=== PATIENT | female | born 1945 | race Caucasian/White ===

== ENCOUNTER 2016-11-04 08:40 | Emergency (ER) | payer MEDICARE ==
[2015-12-18 06:37] VITALS: BMI 27.8
[~2016-11-04 08:40] MED LIST: BAYER CHEWABLE81 MG PO; CATAPRES0.1 MG PO; CLEOCIN HCL300 MG PO; CLEOCIN PREMIX600 MG IV; COUMADIN7.5 MG PO; DULCOLAX10 MG/SUPP RC; DYAZIDE 37.5/251 CAP PO; FLAGYL500 MG PO; HYSINGLA ER20 MG PO; LEVAQUIN500 MG PO; LOTENSIN10 MG PO; NORCO 10/325 TA1 TA1 PO; NORVASC10 MG PO; PERCOCET 10/3251 TA1 PO; PROTONIX40 MG PO; TYLENOL 325 MG325 MG PO; VIBRAMYCIN 100100 MG PO; XANAX1 MG PO
[2016-11-04 09:20] LABS: BASOPHILS 0.6 % (0.0-2.0); EOSINOPHILS 6.3 % (0-7); HEMATOCRIT 41.4 % (36.0-48.0); HEMOGLOBIN 13.6 g/dL (12-16); IMMATURE GRANULOCYTES 0.2 % (0-5); LYMPHOCYTES 29.9 % (15-50); MCH 29.2 pg (26.0-34.0); MCHC 32.9 g/dL (31.0-37.0); MCV 88.8 fL (80.0-100.0); MEAN PLATELET VOLUME 9.1 fL (7.4-10.4); MONOCYTES 8.7 % (2-11); NEUTROPHILS 54.3 % (40-80); PLATELET COUNT 290 10x3/uL (130-400); RBC 4.66 10x6/uL (4.00-5.40); RDW 14.4 % (11.5-14.5); WBC 9.1 10x3/uL (4.8-10.8)
[2016-11-04 09:38] LABS: BILIRUBIN - TOTAL 0.4 mg/dL (0.2-1.3); CALCIUM 9.5 mg/dL (8.5-10.1); CARBON DIOXIDE 27.9 mmol/L (21.0-32.0); POTASSIUM - SERUM 3.9 mmol/L (3.5-5.1); PROTEIN - SERUM 8.8 g/dL (6.4-8.2)
[2016-11-04 09:46] LABS: APPEARANCE HAZY (CLEAR); BACTERIA MANY /hpf (NONE SEEN); BILIRUBIN NEGATIVE (NEGATIVE); COLOR YELLOW (YELLOW); GLUCOSE NEGATIVE (NEGATIVE); KETONE NEGATIVE (NEGATIVE); LEUKOCYTE ESTERASE 1+ (NEGATIVE); MUCUS <1+ /lpf (NONE SEEN); NITRITE POSITIVE (NEGATIVE); PROTEIN TRACE mg/dL (NEGATIVE); RED CELLS - URINE OCC /hpf (0-5); SPECIFIC GRAVITY 1.015 (1.005-1.020); UROBILINOGEN NORMAL (NORMAL); WHITE CELLS - URINE 0-5 /hpf (0-5)
== END 2016-11-04 12:32 | disposition home or self-care (01) ==
LOC: D.ER 08:40
PROVIDERS: Emergency Medicine
DX: N39.0 Urinary tract infection, site not specified (principal); K21.9 Gastro-esophageal reflux disease without esophagitis; I10 Essential (primary) hypertension

== ENCOUNTER 2016-12-12 21:50 | Emergency (ER) | payer MEDICARE ==
[2015-12-18 06:37] VITALS: BMI 27.8
== END 2016-12-13 | disposition home or self-care (01) ==
LOC: D.ER 21:50
DX: R06.00 Dyspnea, unspecified (principal); F17.200 Nicotine dependence, unspecified, uncomplicated; R00.1 Bradycardia, unspecified; I45.10 Unspecified right bundle-branch block

== ENCOUNTER 2016-12-25 19:28 | Observation (INO) | payer MEDICARE ==
[~2016-12-25] VITALS: Ht 165.1 cm; Wt 70.3 kg
--- NOTE | ~2016-12-25 | HEMODYNAMI ---
PATIENT:BETY ALVAREZ MEDICAL RECORD: [id number] : 41 LOCATION[id number] ADMISSION DATE: 12/25/16 Generatedon:12/26/201614:06 Patient name: BETY ALVAREZ Patient #: [id number] SSN: : 1945 Date of study: 12/26/2016 Page: Of Hemodynamic Procedure Report Patient Data Patient Demographics Procedure consent was obtained First Name: BETY Gender: Female Last Name: ANTONIO : 1945 Middle Initial: L Age: 71 year(s) Patient #: [id number] Race: Unknown Additional ID: [id number] Contact details [address]: [address] [place] [address] [address] State: [place] City: [place] Zip code: [address] Past Medical History Allergies Allergen Reaction Date Comments Reported Other allergy 12/26/2016 rocephin, sulfa, erythromycin, morphine, vanc Admission Admission Data Admission Date: 12/25/2016 Admission Time: 21:17 Room #: D.2117 Lab Results Lab Result Date: 12/26/2016 Lab Result Time: 10:15 Biochemistry Name Units Result Min Max BUN mg/dl 12 --(-*--)-- 7 18 Creatinine mg/dl 0.9 --(-*--)-- 0.6 1.3 CBC Name Units Result Min Max Hematocrit % 33.4 *-(----)-- 42 54 Hemoglobin g/dl 11 *-(----)-- 13.5 17.5 Procedure Procedure Types Cath Procedure Diagnostic Procedure LHC LHC w/Coronaries Miscellaneous Procedures Moderate Sedation up to 15 minutes Procedure Description Procedure Date Procedure Date: 12/26/2016 Procedure Start Time: 13:56 Procedure End Time: 14:06 Procedure Staff Name Function Evan Bravo MD Performing Physician Vera Mott RT Scrub Reji Guerra RN Nurse Tima Sol RT Monitor Procedure Data Cath Procedure Fluoroscopy Diagnostic fluoroscopy Total fluoroscopy Time: 0.6 time: 0.6 min min Diagnostic fluoroscopy Total fluoroscopy dose: dose: 104.17 mGy 104.17 mGy Contrast Material Contrast Material Type Amount (ml) Isovue 300 54 Entry Location Entry Primary Successful Side Size Upsize Upsize Entry Closure Succes sful Closure Location (Fr) 1 (Fr) 2 (Fr) Remarks Device Remarks Femoral Right 5 Fr Exoseal artery Estimated blood loss: 5 ml Diagnostic catheters Device Type Used For End Catheter Placement Cordis 5Fr Pigtail Procedure Catheter (MP) Cordis 5Fr JL 4.0 Procedure Catheter (MP) Cordis 5Fr 3DRC Catheter Procedure (MP) Procedure Complications No complications Procedure Medications Medication Administration Route Dosage Oxygen NC 2 l/min Heparin Flush Bag added to field 2 bags (1000units/500ml NS) 0.9% NaCl I.V. 100 ml/hr Fentanyl I.V. 50 mcg Versed I.V. 1 mg Hemodynamics Rest HGB: 11 (g/dl) Heart Rate: 51 (bpm) Snapshots Pre Cath Intra NCS Post Cath Vital Signs Time Heart Resp SPO2 NIBP (mmHg) Rhythm Pain Sedation Rate (ipm) (%) Status Level (bpm) 13:43:42 51 16 98 174/60(130) NSR 0 (11) 10(A) , No pain 13:48:17 49 17 96 134/53(104) NSR 0 (11) 10(A) , No pain 13:52:47 49 18 94 129/53(103) NSR 0 (11) 10(A) , No pain 13:57:15 49 17 95 131/58(109) NSR 0 (11) 9(A) , No pain 14:02:51 55 17 92 170/70(122) NSR 0 (11) 9(A) , No pain Medications Time Medication Route Dose Verified Delivered Reason Notes Effec tiveness by by 13:46:26 Oxygen NC 2 Reji Mendoza Per l/min Charlie Guerra RN physician RN 13:46:35 Heparin Flush added 2 Reji Reji used for Bag to bags Charlie Guerra RN procedure (1000units/500ml field RN NS) 13:46:49 0.9% NaCl I.V. 100 Reji Mendoza Per ml/hr Charlie Guerra RN physician RN 13:56:18 Fentanyl I.V. 50 Reji Reji for mcg Charlie Guerra RN sedation RN 13:56:25 Versed I.V. 1 mg Reji Guerra RN sedation manager target Log Time Note 13:20:00 Reji Guerra RN sent for patient. Start room use. 13:27:01 Time tracking: Regular hours 13:27:04 Plan of Care:Hemodynamics will remain stable., Cardiac rhythm will remain stable., Comfort level will be maintained., Respiratory function will remain adequate., Patient/ family verbilizes understanding of procedure., Procedure tolerated without complication., Recovers from procedure without complications.. 13:35:47 Patient received from PCU to CCL 3 Alert and oriented. Tansferred to table in Supine position. 13:35:48 Warm blankets applied, and tad hugger turned on for patient comfort. 13:35:48 Correct patient and procedure confirmed by team. 13:35:49 Signed procedure consent form obtained from patient. 13:35:50 ECG and BP/O2 sat monitors applied to patient. 13:35:51 Full Disclosure recording started 13:42:06 Vital chart was started 13:44:16 Baseline sample Acquired. 13:44:20 Rhythm: sinus rhythm 13:45:48 H&P Date Dictated: 12/25/2016 Within 30 days and on chart.. 13:45:49 Pre-procedure instructions explained to patient. 13:45:50 Pre-op teaching completed and patient verbalized understanding. 13:45:51 Family in patients room. 13:45:52 Patient NPO since Midnight. 13:46:12 Patient allergic to Other allergyrocephin, sulfa, erythromycin, morphine, vanc 13:46:16 Is the patient allergic to Iodine/contrast media? No. 13:46:17 Is patient on blood thinner?Yes 13:46:22 ACC The patient was administered the following blood thiners within the last 24 hours: ACCPradaxa 13:46:23 Patient diabetic? No. 13:46:26 Oxygen 2 l/min NC was administered by Reji Guerra RN; Per physician; 13:46:27 Previous problem with sedation/anesthesia? No ? 13:46:29 Snore? Yes 13:46:35 Heparin Flush Bag (1000units/500ml NS) 2 bags added to field was administered by Reji Guerra RN; used for procedure; 13:46:49 0.9% NaCl 100 ml/hr I.V. was administered by Reji Guerra RN; Per physician; 13:49:08 Sleep apnea? No 13:49:09 Deviated septum? No 13:49:15 Opens mouth fully? Yes 13:49:16 Sticks out tongue? Yes 13:49:17 Airway obstruction? No ? 13:49:21 Dentures? Yes out 13:49:25 Pre procedure: right dorsailis pedis pulse 1+ Palpable, but thready & weak; easily obliterated 13:49:27 Patient pain scale 0/10 ?. 13:49:33 IV patent on arrival in left forearm with 0.9% NaCl at [facility]. 13:50:30 Lab Result : Creatinine 0.9 mg/dl 13:50:30 Lab Result : BUN 12 mg/dl 13:50:30 Lab Result : Hemoglobin 11 g/dl 13:50:30 Lab Result : Hematocrit 33.4 % 13:50:33 Lab results completed and on chart. 13:50:35 Right groin area was prepped with chlora-prep and draped in sterile fashion 13:50:36 Alarms reviewed by R. N. 13:50:37 Sharps counted by scrub and verified by R.N. 13:50:39 Use device set Femoral Dx 13:50:40 Tegaderm 4 x 4 opened to sterile field. 13:50:41 Acist Manifold opened to sterile field. 13:50:43 Acist Hand Control opened to sterile field. 13:50:44 Acist Syringe opened to sterile field. 13:50:44 Bag Decanter opened to sterile field. 13:50:45 Medline Cath Pack opened to sterile field. 13:50:45 Terumo 5Fr Granton Sheath opened to sterile field. 13:50:46 St Jono 260cm J .035 wire opened to sterile field. 13:50:47 Diagnostic Infinity 5Fr Multipack catheter opened to sterile field. 13:54:47 Physician arrived 13:54:48 --------ALL STOP TIME OUT------ 13:54:48 Final Timeout: patient, procedure, and site verified with staff and physician. All members of the team are in agreement. 13:54:50 Right groin site verified by team. 13:54:52 Physical assessment completed. ASA score P 2 - A patient with mild systemic disease as per Evan Bravo MD. 13:54:55 Sedation plan: IV Moderate Sedation Versed, Fentanyl 13:56:13 Procedure started. 13:56:18 Fentanyl 50 mcg I.V. was administered by Reji Guerra RN; for sedation; 13:56:18 Local anesthetic to right femoral artery with Lidocaine 2% by Evan Bravo MD.INITIAL ACCESS ONLY 13:56:25 Versed 1 mg I.V. was administered by Reji Guerra RN; for sedation; 13:56:25 A 5 Fr sheath was inserted into the Right Femoral artery 13:56:42 Zero performed for pressure channel P1 13:57:25 A Cordis 5Fr Pigtail Catheter (MP) was advanced over the wire and used for Procedure. 13:57:42 LV gram done using MART 13:57:46 Injector settings: Ml/sec: 10, Volume: 20, 13:57:53 EF : 60 % 13:57:56 Catheter exchanged over wire. 13:57:59 A Cordis 5Fr JL 4.0 Catheter (MP) was advanced over the wire and used for Procedure. 13:58:26 LCA angiography performed. 13:59:26 Catheter exchanged over wire. 13:59:31 A Cordis 5Fr 3DRC Catheter (MP) was advanced over the wire and used for Procedure. 14:00:05 RCA angiography performed. 14:01:29 Cordis 5Fr Exoseal opened to sterile field. 14:01:36 Sheath removed intact; hemostasis achieved with Exoseal to the Right Femoral artery. 14:01:38 Procedure ended.(Physican Out) 14:02:14 Fluoroscopy time 00.60 minutes. 14:02:24 Fluoroscopy dose: 104.17 mGy 14:02:24 Flurop Dose total: 104.17 14:02:29 Contrast amount:Isovue 300 54ml. 14:02:30 Sharps counted by scrub and verified by R.N. 14:02:31 Insertion/operative site no bleeding no hematoma. 14:02:35 Post-op/insertion site Right Femoral artery dressed using a 4 x 4 and Tegaderm. 14:04:44 Post right femoral artery:stable, soft, clean and dry 14:04:57 Post Procedure Pulses reassessed and unchanged 14:04:59 Post-procedure physical assessment completed. ASA score P 2 - A patient with mild systemic disease as per Evan Bravo MD. 14:05:01 Post procedure rhythm: unchanged. 14:05:04 Estimated blood loss: 5 ml 14:05:06 Post procedure instruction explained to patient.Patient verbalizes understanding. 14:05:06 Patient needs reinforcement of post procedure teaching. 14:05:20 Procedure type changed to Cath procedure, Diagnostic procedure, LHC, LHC w/Coronaries, Miscellaneous Procedures, Moderate Sedation up to 15 minutes 14:06:02 Procedure and supply charges have been captured, reviewed, submitted and are correct. 14:06:04 Procedure Complication : No complications 14:06:05 Vital chart was stopped 14:06:06 See physician's report for complete and final results. 14:06:07 Report given to PCU. 14:06:09 Patient transfered to PCU with Stretcher. 14:06:11 Procedure ended. 14:06:11 Full Disclosure recording stopped 14:06:16 End room use (Document Last) Device Usage Item Name Manufacture Quantity Catalog Hospital Part Current Minimal Lo t# / Number Charge Number Stock Stock Serial# Code Tegaderm 4 3M 1 [id number] [id number] 273773 5 x 4 Acist Acist 1 01553 196407 282150 844234 5 Manifold Medical Systems Inc Acist Hand Acist 1 27204 959413 259157 880922 5 Control Medical Systems Inc Acist Acist 1 51194 627351 875049 221236 20 Syringe Medical Systems Inc Bag Microtek 1 2002S 315520 25431 934659 5 Decanter Medical Inc. Medline Cardinal 1 [id number] 018483 62723 462954 5 Cath Pack Health Terumo 5Fr Terumo 1 [id number] 941745 418349 995467 [address] Jono 1 497456 989890 022601 692876 30 260cm J .035 wire Diagnostic Cardinal 1 [id number] 620439 76034 480513 30 Infinity Health 5Fr Multipack catheter Cordis 5Fr Cardinal 1 484603 5 Pigtail Health Catheter (MP) Cordis 5Fr Cardinal 1 374975 5 JL 4.0 Health Catheter (MP) Cordis 5Fr Cardinal 1 190456 5 3DRC Health Catheter (MP) Cordis 5Fr Cardinal 1 EX500 112850 978277 759728 10 [facility] Signature Audit Calvin Stage Time Signature Unsigned Intra-Procedure 12/26/2016 Tima Sol 2:06:34 PM RT(R) Signatures Monitor : Tima Sol RT Signature : Date : Time : [place] [id number] [place] [address]
--- NOTE | ~2016-12-25 | DS ---
PATIENT:BETY CHAN :41 MEDICAL RECORD: [id number] DISCHARGE SUMMARY ADMISSION DATE: 12/25/16 DISCHARGE DATE: 12/26/16 DATE OF DISCHARGE: 12/26/2016 DIAGNOSES: 1. Chest pain. 2. Angina. 3. Coronary artery disease. 4. Shortness of breath. 5. History of pulmonary embolus. 6. Coumadin anticoagulation, ____ embolus. 7. Hypertension. 8. Chronic obstructive pulmonary disease. HOSPITAL COURSE: Ms. Chan presents with increasing shortness of breath and some chest pain. She underwent CT angio. She did not have a new pulmonary embolus. She was remained on Pradaxa. She underwent cardiac catheterization. She had wide patency of her previously placed stent with no new disease, was discharged home with no change in her medications, follow up with [facility] as previously scheduled. TRANSINT:[id number] Voice Confirmation ID: [id number] DOCUMENT ID: [id number] COLIN MONTES MD CC: [id number] DICTATION DATE: 12/26/161404 DISPLAY TRIMMER: 12/27/16 0206 DIS IN 12/26/16 [facility] [address] [place] [address]
--- NOTE | ~2016-12-25 | OP ---
PATIENT NAME: BETY ALVAREZ MEDICAL RECORD: [id number] :41 LOCATION:D.M2 D.2117 ADMISSION DATE:12/25/16 SURGEON: COLIN MONTES MD DATE OF OPERATION: 12/26/2016 PROCEDURES: 1. Left heart catheterization. 2. Selective coronary angiography. 3. Left ventriculogram. INDICATION: Angina and coronary artery disease. PROCEDURE: After informed consent was obtained and after a detailed explanation of risks, benefits as well as alternative therapies, the patient elected to proceed with angiogram and heart catheterization. The right femoral area was prepped and draped in normal sterile fashion. The right femoral artery was cannulated via modified Seldinger technique with placement of 5-Pashto sheath. All catheters exchanged through this sheath. FINDINGS: Left ventriculogram was performed in standard 30-degree MART view, reveals good cardiac wall motion throughout all segments. Overall ejection fraction is 60%. SELECTIVE CORONARY ANGIOGRAPHY: 1. Left main showed no significant angiographic disease. 2. Left anterior descending has previously placed stent in the proximal vessel is widely patent with no significant restenosis. No disease elsewise throughout the LAD or its branches. 3. Left circumflex shows moderate irregularities, but no flow-limiting stenosis. 4. Right coronary has moderate irregularities, but no flow-limiting stenosis. OVERALL IMPRESSION: Wide patency of the previously placed stent with no disease elsewise and normal left ventricular function. Chest pain is noncardiac in etiology. TRANSINT:[id number] Voice Confirmation ID: [id number] DOCUMENT ID: [id number] COLIN MONTES MD CC: [id number] DICTATION DATE: 12/26/16 1406 HYPO SPLASHER: 12/26/162133 DIS IN 12/26/16 [facility] [address] [place] [id number]
[2016-12-25 21:27] LABS: BASOPHILS 0.3 % (0.0-2.0); EOSINOPHILS 8.3 % (0-7); HEMATOCRIT 33.4 % (36.0-48.0); IMMATURE GRANULOCYTES 0.3 % (0-5); LYMPHOCYTES 29.4 % (15-50); MCH 29.3 pg (26.0-34.0); MCHC 32.9 g/dL (31.0-37.0); MCV 89.1 fL (80.0-100.0); MONOCYTES 8.1 % (2-11); NEUTROPHILS 53.6 % (40-80); RBC 3.75 10x6/uL (4.00-5.40); RDW 15.3 % (11.5-14.5); WBC 7.4 10x3/uL (4.8-10.8)
[2016-12-25 21:36] LABS: PLATELET COUNT 194 10x3/uL (130-400)
[2016-12-25 21:45] LABS: ALBUMIN 3.4 g/dL (3.4-5.0); ALKALINE PHOSPHATASE 62 U/L (46-116); ALT (SGPT) 13 U/L (10-68); BILIRUBIN - TOTAL 0.18 mg/dL (0.2-1.3); CALC OSMOLALITY 280 mosm/kg (275-300); CALCIUM 9.3 mg/dL (8.5-10.1); CARBON DIOXIDE 25.4 mmol/L (21.0-32.0); CHLORIDE - SERUM 103 mmol/L (98-107); CREATININE - SERUM 0.9 mg/dL (0.6-1.3); GLUCOSE 109 mg/dL (74-106); POTASSIUM - SERUM 4.2 mmol/L (3.5-5.1); PROTEIN - SERUM 7.1 g/dL (6.4-8.2); SODIUM 139 mmol/L (136-145); UREA NITROGEN 17 mg/dL (7-18); eGFR NON AFRICAN AMERICAN 65 mL/min (90-120)
[2016-12-25 21:54] LABS: CREATINE KINASE 37 UL (21-215); PRO BNP 563 pg/mL (0-125)
[2016-12-25 21:55] LABS: TROPONIN-I < 0.017 ng/mL (0.000-0.060)
[2016-12-25] MEDS ORDERED: HYDROCODONE-APA1 TAB PO (23:00)
--- NOTE | 2016-12-25 23:00 | NUR ---
RECIEVED TO 2116 FROM ER VIA WC. PT A&O. VITALS STABLE. O2 AT 2 LITER VIA NC, RESPERTIONS EVEN AND UNLABORED. IV TO LEFT FOREARM SL, SITE CLEAN AND DRY. PLACED ON TELEMETRY, 83 SR PER MT. 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 PT DENIES NEEDS AT THIS TIME, BED LOW, CL IN REACH.
[2016-12-25] MEDS ORDERED: CATAPRES0.1 MG PO (23:02)
[2016-12-25] MEDS ORDERED: PROAIR HFA8.5 GM INH (23:04)
[2016-12-25] MEDS ORDERED: PRADAXA150 MG PO (23:05)
[2016-12-25 23:47] VITALS: BP 166/54; BMI 25.9
--- NOTE | 2016-12-25 23:53 | NUR ---
NORCO 1 TAB GIVEN FOR C/O PAIN TO LEGS, RATES PAIN AT A 7 ON PAIN SCALE. NO OTHER NEEDS VOICED AT THIS TIME.
[2016-12-26] VITALS: BP 166/54
--- NOTE | 2016-12-26 04:18 | NUR ---
IC DESIGN ENGINEER AT BEDSIDE TO OBTAIN VITALS, CALL LIGHT IN REACH. WILL CONTINUE WITH PLAN OF CARE.
--- NOTE | 2016-12-26 07:30 | NUR ---
RECEIVED PT IN BED AAOX4 RESP UNLABORED NAD NOTED PT DENIES ANY NEEDS OR DISCOMFORT NAD NOTED
[2016-12-26 08:19] VITALS: BP 161/57
[2016-12-26 10:37] VITALS: Ht 165.1 cm; Wt 70.3 kg
[2016-12-26 11:10] LABS: INR 1.06 (0.85-1.17); PROTIME 13.7 SECONDS (11.6-15.0)
[2016-12-26 11:11] LABS: ANION GAP 12.2 mmol/L (8-16); CALCIUM 9.1 mg/dL (8.5-10.1); CARBON DIOXIDE 24.9 mmol/L (21.0-32.0); CREATININE - SERUM 0.9 mg/dL (0.6-1.3); POTASSIUM - SERUM 4.1 mmol/L (3.5-5.1)
[2016-12-26 12:44] VITALS: BP 145/52
[2016-12-26 13:02] LABS: BASOPHILS 0.3 % (0.0-2.0); EOSINOPHILS 7.5 % (0-7); HEMATOCRIT 34.2 % (36.0-48.0); HEMOGLOBIN 11.3 g/dL (12-16); LYMPHOCYTES 21.8 % (15-50); MCH 29.3 pg (26.0-34.0); MCV 88.6 fL (80.0-100.0); MONOCYTES 6.5 % (2-11); NEUTROPHILS 63.9 % (40-80); PLATELET COUNT 209 10x3/uL (130-400); RBC 3.86 10x6/uL (4.00-5.40); RDW 15.3 % (11.5-14.5); WBC 6.2 10x3/uL (4.8-10.8)
--- NOTE | 2016-12-26 15:17 | NUR ---
PT TO SEED SPECIALIST VIA BED IN STABLE CONDITION
--- NOTE | 2016-12-26 15:55 | NUR ---
RECEIVED PT BACK TO ROOM IN STABLE CONDITION VIA BED VSS RT GREGORY WHITT C/D/I
[2016-12-26 16:00] VITALS: BP 131/64
--- NOTE | 2016-12-26 17:59 | NUR ---
REVIEWED DISCHARGE INSTRUCTIONS WITH PT STATES UNDERSTANDING COPY GIVEN SALINE LOCK DCD LFA WITH 22 GA IV CATHETER TIP INTACT NO REDNESS OR EDEMA NOTED PT DISCHARGED HOME VIA W/C IN STABLE CONDITION WITH ALL PERSONAL BELONGINGS
== END 2016-12-26 17:59 | disposition home or self-care (01) ==
LOC: D.ER 19:28 → OBSVTIME 21:17 → D.M2 21:17
PROVIDERS: Family Medicine; ADMIT Internal Medicine Interventional Cardiology
DX: R07.89 Other chest pain (principal); I25.119 Atherosclerotic heart disease of native coronary artery with unspecified angina pectoris; Z95.5 Presence of coronary angioplasty implant and graft; Z86.73 Personal history of transient ischemic attack (TIA), and cerebral infarction without residual deficits; F41.9 Anxiety disorder, unspecified; I10 Essential (primary) hypertension; Z86.711 Personal history of pulmonary embolism; Z79.01 Long term (current) use of anticoagulants; J44.9 Chronic obstructive pulmonary disease, unspecified; Z72.0 Tobacco use

== ENCOUNTER 2017-01-17 12:33 | Inpatient (IN) | payer MEDICARE ==
[~2017-01-17] VITALS: Ht 165.1 cm; Wt 68.6 kg
[~2017-01-17 12:33] MED LIST changes: +HYDROCODONE-APA1 TAB PO; +PRADAXA150 MG PO; +PROAIR HFA8.5 GM INH
[2017-01-17 13:45] LABS: BASOPHILS 0.1 % (0-2); EOSINOPHILS 2.9 % (0-7); HEMATOCRIT 35.8 % (36.0-48.0); HEMOGLOBIN 11.5 g/dL (12-16); IMMATURE GRANULOCYTES 0.2 % (0-5); LYMPHOCYTES 12.1 % (15-50); MCH 29.1 pg (26.0-34.0); MCHC 32.1 g/dL (31.0-37.0); MCV 90.6 fL (80.0-100.0); MEAN PLATELET VOLUME 9.7 fL (7.4-10.4); MONOCYTES 7.7 % (2-11); PLATELET COUNT 217 10x3/uL (130-400); RBC 3.95 10x6/uL (4.00-5.40); RDW 15.4 % (11.5-14.5); WBC 9.9 10x3/uL (4.8-10.8)
[2017-01-17 14:09] LABS: ALBUMIN 3.6 g/dL (3.4-5.0); ANION GAP 11.3 mmol/L (8-16); BILIRUBIN - TOTAL 0.57 mg/dL (0.2-1.3); CALCIUM 9.4 mg/dL (8.5-10.1); CARBON DIOXIDE 29.1 mmol/L (21.0-32.0); CREATININE - SERUM 1.1 mg/dL (0.6-1.3); POTASSIUM - SERUM 4.4 mmol/L (3.5-5.1); PROTEIN - SERUM 7.4 g/dL (6.4-8.2)
[2017-01-17 14:49] LABS: APPEARANCE CLOUDY (CLEAR); BILIRUBIN NEGATIVE (NEGATIVE); COLOR YELLOW (YELLOW); GLUCOSE NEGATIVE (NEGATIVE); KETONE NEGATIVE (NEGATIVE); LEUKOCYTE ESTERASE TRACE (NEGATIVE); NITRITE POSITIVE (NEGATIVE); PROTEIN TRACE mg/dL (NEGATIVE); SPECIFIC GRAVITY 1.015 (1.005-1.020); UROBILINOGEN NORMAL (NORMAL)
[2017-01-17 14:53] LABS: BACTERIA MANY /hpf (NONE SEEN); EPITHELIAL CELLS 0-5 /hpf (0-5); RED CELLS - URINE 0-5 /hpf (0-5)
[2017-01-17] MEDS ORDERED: MACROBID100 MG PO (17:06)
--- NOTE | 2017-01-17 19:01 | NUR ---
RECIEVED TO FLOOR, ORIENTED TO ROOM, DENIES NEEDS, WILL CONTINUE TO MONITOR
[2017-01-17 20:00] VITALS: BP 120/47
--- NOTE | 2017-01-18 03:44 | NUR ---
PT. IN BED WITH HOB UP FOR COMFORT WITH EYES CLOSED AND RESP. DEEP AND EVEN. IV INFUSING VIA PUMP WITHOUT ANY ALARMS. CALL LIGHT REMAINS WITHIN REACH.
[2017-01-18 04:00] VITALS: BP 137/50
[2017-01-18 07:00] VITALS: BP 121/50
--- NOTE | 2017-01-18 07:00 | NUR ---
REPORT RECEIVED FROM TRANSPORT NURSE NURSE. CALL LIGHT IN REACH.
--- NOTE | 2017-01-18 09:05 | NUR ---
SPOKE WITH PATIENT ABOUT ORDER FOR SURGERY IN AM. STATES SHE WOULD LIKE TO SPEAK WITH THE DOCTOR. INFORMED PATIENT THAT HE WILL BE HERE LATER TODAY TO SPEAK WITH HER. ALSO INSTRUCTED HER ABOUT THE 24 HOUR URINE AND TO NOTIFY ME THE NEXT TIME SHE GOES TO THE . [place] HAT PLACED UNDER TOILET SEAT. WILL OBTAIN JUG FOR URINE FROM LAB AND PLACE IT ON ICE. PASSWORD AND EMERGENCY CONTACT INFO OBTAINED AND PLACED IN COMPUTER.
--- NOTE | 2017-01-18 09:45 | NUR ---
ASSESSMENT COMPLETED. NORCO PO WITH AM MEDS ADMINISTERED EXCEPT FOR BP MED D/T LOW BP. OFFERED SCDs AFTER EXPLAINING IMPORTANCE OF THEM BUT PATIENT REFUSED THEM. CALL LIGHT IN REACH. WILL CONTINUE WITH PLAN OF CARE.
--- NOTE | 2017-01-18 10:42 | NUR ---
PATIENT IS RESTING QUIETLY WITH EYES CLOSED. NO SIGNS OF DISTRESS NOTED. BED IN LOWEST POSITION, CALL LIGHT IN REACH. BED RAILS UP X'S 2. DOOR OPEN.
--- NOTE | 2017-01-18 12:03 | NUR ---
LYING IN BED WITH EYES CLOSED. RESP EVEN AND UNLABORED. CALL LIGHT IN REACH.
[2017-01-18 12:32] VITALS: BP 104/44
--- NOTE | 2017-01-18 14:25 | NUR ---
MERREM IVPB. NORCO PO PER C/O PAIN OF 7 TO BACK AND RIGHT SIDE. FAMILY IN ROOM. PASSWORD AND EMERGENCY CONTACT INFO OBTAINED AND PLACED IN COMPUTER.
[2017-01-18 14:57] VITALS: BP 124/44
--- NOTE | 2017-01-18 16:37 | NUR ---
LEVAQUIN 750 MG IVPB. CALL LIGHT IN REACH.
--- NOTE | 2017-01-18 17:13 | NUR ---
TYLENOL 650 MG PO PER TEMP OF 101.1.
--- NOTE | 2017-01-18 18:16 | NUR ---
C/O PAIN OF 5 TOP RIGHT SIDE, BACK, AND HEAD. NORCO PO. NO CHANGES IN INITIAL ASSESSMENT. STILL REFUSES SCDs. CALL LIGHT IN REACH. DISCUSSED URINE RESULTS WITH PATIENT BECAUSE SHE WAS CURIOUS. WILL CONTINUE WITH PLAN OF CARE.
[2017-01-18 20:00] VITALS: BP 83/49
--- NOTE | 2017-01-18 22:16 | NUR ---
PATIENT RESTING WITH EYES CLOSED AND NO VISBLE SIGNS OF DISTRESS. BED IN LOWEST POSITION AND CALL LIGHT WITHIN REACH.
[2017-01-19] VITALS: BP 92/50
--- NOTE | 2017-01-19 00:48 | NUR ---
C/O PAIN WAS MEDICATED WITH NORCO PER ORDERS. C/L IN REACH AT BEDSIDE.
--- NOTE | 2017-01-19 03:18 | NUR ---
RESTING WELL AT THIS TIME WITH NO DISTRESS NOTED OR VOICED. C/L IN REACH AT BEDSIDE.
[2017-01-19 04:00] VITALS: BP 128/62
--- NOTE | 2017-01-19 05:59 | NUR ---
PT C/O PAIN TO RIGHT SIDE AND BACK AT THIS TIME WAS MEDICATED WITH NORCO PER ORDERS. C/L N REACH AT BEDSIDE.
--- NOTE | 2017-01-19 07:00 | NUR ---
PATIENT RECEIVED IN MID GARCIA POSITION RESTING WITH EYES CLOSED. RESPIRATIONS EVEN AND UNLABORED. SIDE RAILS UP X2. BED IN LOW POSITION. CALL LIGHT IN REACH.
[2017-01-19 07:38] VITALS: BP 143/53
--- NOTE | 2017-01-19 08:40 | NUR ---
PATIENT ALERT IN BED EATING BREAKFAST. TOLERATING WELL. SCHEDULED MEDICATION ADMINISTERED. DENIES NEEDS. SIDE RAILS UP X2. BED IN LOW POSITION. CALL LIGHT IN REACH.
--- NOTE | 2017-01-19 10:14 | NUR ---
PATIENT UP AMBULATING IN HALLWAY. NO SIGNS OF DISTRESS NOTED.
--- NOTE | 2017-01-19 10:55 | NUR ---
PATIENT BACK TO ROOM WITH DAUGHTER. PATIENT PLACED IN CONTACT ISOLATION FOR ESBL IN URINE. APPROPRIATE SIGNS PLACED AT DOOR. TEACHING PROVIDED TO PATIENT AND DAUGHTER. STATES UNDERSTANDING.
--- NOTE | 2017-01-19 11:00 | NUR ---
PATIENT REPORTS SHE WENT FOR A WALK UPON RETURNING TO HER ROOM " SOMEONE WENT THROUGH HER PURSE AND TOOK 15-20 HYDROCODONES BUT DIDN'T TOUCH HUNDREDS OF DOLLARS OR LORAZEPAM". PATIENT REFUSES TO LOCK BELONGINGS IN SAFE OR SEND HOME WITH FAMILY MEMBER. [facility] PAINTER BOTTOM AND SECURITY NOTIFIED.
--- NOTE | 2017-01-19 11:05 | NUR ---
PATIENT REPORTS SHE HAD "15-20 HYDROCODONE IN A SMALL BLACK BAG IN HER PURSE THAT IS NOW MISSING." LIVIA WINSTON AT BEDSIDE TO DISCUSS MATTER WITH PATIENT. PATIENT ALSO STATES "SHE HAS HUNDREDS OF DOLLARS AND LORAZEPAM IN PURSE." LIVIA WINSTON ASKED MULTIPLE TIMES AND ENCOURAGED PATIENT TO EITHER SEND BELONGINGS HOME WITH DAUGHTER WHO IS AT BEDSIDE OR TO LOCKED IN SAFE AT HOSPITAL TO WHICH THE PATIENT REFUSES BOTH.
--- NOTE | 2017-01-19 11:43 | NUR ---
LALI WITH SECURITY IN ROOM TALKING WITH PATIENT.
--- NOTE | 2017-01-19 13:00 | NUR ---
SITTING UP IN BED EATING LUNCH. TOLERATING WELL. DENIES NEEDS. SIDE RAILS UP X2. BED IN LOW POSITION. CALL LIGHT IN REACH.
[2017-01-19 13:27] VITALS: BMI 25.1
[2017-01-19 13:35] VITALS: BP 117/44
--- NOTE | 2017-01-19 14:55 | NUR ---
[place] [employer] HERE TO SPEAK TO PATIENT REGARDING MISSING HYDROCODONE. PATIENT AGREES TO SENT LORAZEPAM TO [facility] FOR LOCKUP. COUNT VERIFIED BY LIVIA WINSTON, THIS NURSE AND [employer] QUALITY CONTROL AUDITOR. QUALITY CONTROL AUDITOR STATES PATIENT TOLD HIM A FAMILY MEMBER WOULD COME TO TAKE HER OTHER BELONGINGS HOME.
--- NOTE | 2017-01-19 15:10 | NUR ---
HOME LORAZEPAM SENT TO PHARMACY FOR LOCKUP. RECEIVED BY EMANI, FLESHING MACHINE OPERATOR
--- NOTE | 2017-01-19 16:45 | NUR ---
TYLENOL PER PRN ORDER FOR FEVER OF 101. DENIES NEEDS. SIDE RAILS UP X2. BED IN LOW POSITION. CALL LIGHT IN REACH.
[2017-01-19 16:56] VITALS: BP 96/67
[2017-01-19 20:00] VITALS: BP 96/39
--- NOTE | 2017-01-19 20:00 | NUR ---
ASSESSMENT PER FLOWSHEET IV PATENT LT ARM OF NS AT 100CC'S/HR. SITE CLEAR. PT IN CONTACT ISOLATION. UP AD LORIN TO BR VOIDS WELL.
--- NOTE | 2017-01-19 20:32 | NUR ---
C/O PAIN RT FLANK AREA AND BACK. RATES PAIN LEVEL #5-6. NORCO 10 TAB ONE PO GIVEN FOR PAIN RELIEF.
--- NOTE | 2017-01-19 21:30 | NUR ---
DR JOHNSON HERE TO SEE PATIENT ORDERS REC'D.
--- NOTE | 2017-01-19 21:41 | NUR ---
PT REQUESTING NERVE PILL. XANAX 0.25MG TAB ONE PO GIVEN FOR NERVES.
--- NOTE | 2017-01-20 00:36 | NUR ---
C/O PAIN RT FLANK AREA AND BACK. RATES PAIN LEVEL #6. NORCO 10 TAB ONE PO GIVEN FOR PAIN CONTROL.
--- NOTE | 2017-01-20 03:00 | NUR ---
RESTING QUIETLY AT THIS TIME DENIES NEEDS
[2017-01-20 04:00] VITALS: BP 98/49
[2017-01-20 06:32] LABS: ALBUMIN 2.5 g/dL (3.4-5.0); ANION GAP 10.3 mmol/L (8-16); BILIRUBIN - TOTAL 0.31 mg/dL (0.2-1.3); CALCIUM 8.1 mg/dL (8.5-10.1); CARBON DIOXIDE 26.5 mmol/L (21.0-32.0); POTASSIUM - SERUM 3.8 mmol/L (3.5-5.1); PROTEIN - SERUM 6.2 g/dL (6.4-8.2)
[2017-01-20 06:46] LABS: BASOPHILS 0.1 % (0-2); EOSINOPHILS 4.9 % (0-7); HEMATOCRIT 33.1 % (36.0-48.0); HEMOGLOBIN 10.6 g/dL (12-16); IMMATURE GRANULOCYTES 0.3 % (0-5); LYMPHOCYTES 16.6 % (15-50); MCH 29.2 pg (26.0-34.0); MCV 91.2 fL (80.0-100.0); MEAN PLATELET VOLUME 10.2 fL (7.4-10.4); MONOCYTES 8.2 % (2-11); NEUTROPHILS 69.9 % (40-80); RBC 3.63 10x6/uL (4.00-5.40); RDW 15.6 % (11.5-14.5); WBC 7.3 10x3/uL (4.8-10.8)
[2017-01-20 06:48] LABS: PLATELET COUNT 169 10x3/uL (130-400)
--- NOTE | 2017-01-20 07:25 | NUR ---
PATIENT RECEIVED ALERT IN HIGH GARCIA POSITION. RESPIRATIONS EVEN AND UNLABORED. DENIES NEEDS. SIDE RAILS UP X2. BED IN LOW POSITION. CALL LIGHT IN REACH.
[2017-01-20 07:59] VITALS: BP 125/49
--- NOTE | 2017-01-20 08:02 | NUR ---
PATIENT ALERT IN HIGH GARCIA POSITION WATCHING TV. RESPIRATIONS EVEN AND UNLABORED. SCHEDULED MEDICATION ADMINISTERED. NO NEEDS VOICED. SIDE RAILS UP X2. BED IN LOW POSITION. CALL LIGHT IN REACH.
[2017-01-20 11:38] VITALS: BP 74/45
--- NOTE | 2017-01-20 12:10 | NUR ---
PATIENT ALERT IN HIGH GARCIA POSITION WATCHING TV. RESPIRATIONS EVEN AND UNLABORED. DENIES NEEDS. SIDE RAILS UP X2. BED IN LOW POSITION. CALL LIGHT IN REACH.
[2017-01-20 13:45] VITALS: BP 136/83
--- NOTE | 2017-01-20 15:26 | NUR ---
WOUND CARE CONSULT: PT HAS A CHRONIC WOUND ON RIGHT INNER UPPER ANKLE. MEASURES 1.5CM X 1CM. IT IS NEARLY HEALED. PT HAS BEEN GOING TO WOUND CLINIC AND HAS HAD HOME HEALTH CHANGING DRESSINGS AT HOME. CLEANSED WITH SAFCLEANS AND APPLIED PROMOGRAN/JANUSZ MOISTENED WITH SALINE. COVERED WITH 4X4S, CAST PADDING AND SECURED WITH KERLIX. RECOMMEND CHANGING EVERY 3 DAYS. wOUND CARE WILL CONTINUE TO MONITOR.
--- NOTE | 2017-01-20 15:38 | NUR ---
ALERT IN BED WITH FAMILY PRESENT. NO SIGNS OF DISTRESS NOTED. SCHEDULED MEDICATION ADMINISTERED. DENIES NEEDS. BED IN LOW POSITION. SIDE RAILS UP X2. CALL LIGHT IN REACH. FAMILY PRESENT.
[2017-01-20 15:48] VITALS: BP 106/41
--- NOTE | 2017-01-20 17:28 | NUR ---
Patient Name: BETY ALVAREZ Admission Status: ER Accout number: [id number] Admission Date: 01-17-2017 : 1945 Admission Diagnosis: Attending: VIJAY Current LOS: 3 Anticipated DC Date: 01-22-2017 Planned Disposition: Home with Home Health Primary Insurance: MEDICARE A & B Discharge Planning Comments: CM MET WITH PATIENT REGARDING D/C NEEDS AND PLANS. PATIENT STATED SHE LIVES WITH HER DAUGHTER (JANENE) AND SHE WILL DRIVE HER HOME AT DISCHARGE. PATIENT STATED THERE ARE 3 STEPS W/RAILS TO ENTER HOME AND NO STAIRS INSIDE. PATIENT IS INDEPENDENT WITH HER CARE AND HAS NO DME AT HOME. PATIENTS PCP IS DR. JOHNSON AND PHARMACY IS [facility]. PATIENT IS CURRENT WITH [facility]. PCP DR. JOHNSON [facility] - [phone] JANENE (DAUGHTER) [phone] Novelty Printing Machine Operator: Oriana Fang Is the patient Alert and Oriented? Yes 0 * How many steps to enter\exit or inside your home? 3 W/RAILS 0 * PCP DR. JOHNSON 0 * Pharmacy [facility] 0 * Preadmission Environment Home with Family 0 * ADLs Independent 0 * Equipment None 0 * List name and contact numbers for known caregivers / representatives who currently or will assist patient after discharge: DAUGHTER (JANENE) [phone] 0 * Community resources currently utilized None 0 * Additional services required to return to the preadmission environment? Yes 0 * Can the patient safely return to the preadmission environment? Yes 0 * Has this patient been hospitalized within the prior 30 days at any hospital? No 0 Grand Total: 0
[2017-01-20 20:00] VITALS: BP 112/38
--- NOTE | 2017-01-20 20:00 | NUR ---
ASSESSMENT PER FLOWSHEET. IV PATENT LEFT FOREARM OF NS AT 100CC'S/HR SITE CLEAR. PT IN CONTACT ISOLATION. SR UP X2 CALL LIGHT WITHIN REACH.
--- NOTE | 2017-01-20 21:23 | NUR ---
C/O PAIN BACK RATES PAIN LEVEL #5-6. NORCO 10 TAB ONE PO GIVEN FOR PAIN CONTROL.
--- NOTE | 2017-01-20 22:11 | NUR ---
C/O NAUSEA AND HAVING EMESIS IN THE TRASHCAN. ZOFRAN 4MG IVP GIVEN FOR RELIEF.
--- NOTE | 2017-01-21 00:09 | NUR ---
PT REQUESTING NERVE MED. XANAX 0.25MG TAB ONE PO GIVEN FOR ANXIETY.
--- NOTE | 2017-01-21 01:48 | NUR ---
C/O PAIN IN RT FLANK AREA RATES PAIN LEVEL #5. NORCO TAB ONE PO GIVEN FOR PAIN CONTROL.
--- NOTE | 2017-01-21 02:00 | NUR ---
UP AD LORIN TO BR VOIDS WELL.
--- NOTE | 2017-01-21 04:30 | NUR ---
EYES CLOSED RESPIRATIONS WITH EASE AND UNLABORED.
--- NOTE | 2017-01-21 05:15 | NUR ---
NO CHANGES IN ASSESSMENT.
--- NOTE | 2017-01-21 07:20 | NUR ---
REPORT RECEIVED FROM GRAVEL MACHINE OPERATOR NURSE. CALL LIGHT IN REACH.
--- NOTE | 2017-01-21 08:00 | NUR ---
AM MEDS ADMINISTERED. ATTEMPTED TO RESITE IV TO RIGHT FOREARM WITH 22 GA BUT VEIN BLEW WHEN TRYING TO FLUSH. WILL ASK IV NURSE TO LOOK. STILL REFUSES SCDs. CALL LIGHT IN REACH. WILL CONTINUE WITH PLAN OF CARE.
[2017-01-21 08:02] VITALS: BP 110/48
--- NOTE | 2017-01-21 08:29 | NUR ---
IV ACCESS-22 GAUGE INSERTED IN RIGHT HAND FOR ACCESS. ORLIN RAYMUNDO RN
--- NOTE | 2017-01-21 10:30 | NUR ---
AMBULATED IN HALLWAY WITH DAUGHTER.
--- NOTE | 2017-01-21 12:23 | NUR ---
DEONNA DALEY. FLORENTINO PO. CALL LIGHT IN REACH.
[2017-01-21 12:28] VITALS: BP 147/55
--- NOTE | 2017-01-21 14:29 | NUR ---
RESTING WITH EYES CLOSED. RESP EVEN AND UNLABORED. CALL LIGHT IN REACH.
[2017-01-21 15:59] VITALS: BP 134/58
--- NOTE | 2017-01-21 16:15 | NUR ---
C/O PAIN OF 10 SO NORCO PO. ZOSYN IVPB. MILK OF MAG PO PER C/O CONSTIPATION.
--- NOTE | 2017-01-21 18:27 | NUR ---
NO CHANGES IN INITIAL ASSESSMENT. STILL REFUSES SCDs. CALL LIGHT IN REACH. WILL CONTINUE WITH PLAN OF CARE.
[2017-01-21 20:00] VITALS: BP 129/55
--- NOTE | 2017-01-21 20:00 | NUR ---
ASSESSMENT PER FLOWSHEET. IV PATENT RT HAND OF NS AT 100CC'S/HR SITE CLEAR. UP AD LORIN IN ROOM WENT TO BR AND EMPTIED COLOSTOMY BAG.DENIES NEEDS.
--- NOTE | 2017-01-21 22:48 | NUR ---
C/O PAIN RT FLANK AREA NORCO 10 TAB ONE PO GIVEN FOR PAIN CONTROL.
[2017-01-22] VITALS: BP 118/53
--- NOTE | 2017-01-22 | NUR ---
EYES CLOSED RESPIRATIONS WITH EASE AND UNLABORED.
--- NOTE | 2017-01-22 02:50 | NUR ---
RESTING QUIETLY AT THIS TIME DENIES NEEDS. SR UP X2 CALL LIGHT WITHINREACH.
[2017-01-22 04:00] VITALS: BP 132/62
--- NOTE | 2017-01-22 07:15 | NUR ---
REPORT RECEIVED FROM SERVICE ELECTRICIAN NURSE. CALL LIGHT IN REACH.
[2017-01-22 08:44] VITALS: BP 143/53
--- NOTE | 2017-01-22 08:52 | NUR ---
ASSESSMENT COMPLETED. EATING BREAKFAST AT THIS TIME. STILL REFUSES SCDs. CONTACT ISOLATION. REQUESTING PAIN PILL WITH AM MEDS. CALL LIGHT IN REACH. WILL CONTINUE WITH PLAN OF CARE.
--- NOTE | 2017-01-22 09:55 | NUR ---
NORCO PO WITH AM MEDS ADMINISTERED. HELD BP MEDS AGAIN.
--- NOTE | 2017-01-22 11:13 | NUR ---
IV ZOSYN ADMINISTERED PER ORDER. STATES PAIN HAS DECREASED TO A 3.
[2017-01-22 12:24] VITALS: BP 132/57
--- NOTE | 2017-01-22 12:43 | NUR ---
CONTACT ISOLATION. COLOSTOMY BAG INTACT. PATIENT STATES THAT SHE DOES SELF CARE. NS INFUSING TO RIGHT HAND IV WITH NO SWELLING OR REDNESS TO SITE. DENIES NEEDS OR PAIN AT THIS TIME. CALL LIGHT IN REACH.
--- NOTE | 2017-01-22 13:58 | NUR ---
NUTRITION MONITORING & EVAL CHART REVIEWED, PT VISIT. REMAINS IN ISOLATION. REPORTS CONTINUED GOOD PO INTAKE REG DIET. WILL CONTINUE TO PROVIDE DIET, HONOR FOOD PREFERENCES. RD FOLLOWING
--- NOTE | 2017-01-22 14:21 | NUR ---
LIVIA LORENZO, ADMINISTERED A NORCO PO FOR PAIN OF 7.
--- NOTE | 2017-01-22 16:16 | NUR ---
DEONNA DALEY. VISITOR IN ROOM. CALL LIGHT IN REACH.
[2017-01-22 16:31] VITALS: BP 136/55
--- NOTE | 2017-01-22 17:55 | NUR ---
NO CHANGES IN INITIAL ASSESSMENT. CALL LIGHT IN REACH. STILL REFUSES SCDs. WILL CONTINUE WITH PLAN OF CARE.
[2017-01-22 17:56] LABS: APTT 24.4 SECONDS (22.8-39.4)
[2017-01-22 18:00] LABS: INR 1.03 (0.85-1.17); PROTIME 13.3 SECONDS (11.6-15.0)
--- NOTE | 2017-01-22 18:07 | NUR ---
NO CHANGES IN INITIAL ASSESSMENT. CALL LIGHT IN REACH. WILL CONTINUE WITH PLAN OF CARE.
[2017-01-22 20:00] VITALS: BP 141/55
[2017-01-23] VITALS (7 sets, daily range): BP systolic 127–194; BP diastolic 53–121; Ht 165.1 cm; Wt 68.6 kg
--- NOTE | 2017-01-23 07:15 | NUR ---
REPORT RECEIVED FROM SPOOL WINDER NURSE. CALL LIGHT IN REACH.
--- NOTE | 2017-01-23 08:10 | NUR ---
REPORT RECEIVED FROM COMMODITY SPECIALIST NURSE. CALL LIGHT IN REACH.
--- NOTE | 2017-01-23 08:13 | NUR ---
ASSESSMENT COMPLETED. NORCO AND ASPIRIN. REFUSES SCDs. FAMILY IN ROOM. CALL LIGHT IN REACH. WILL CONTINUE WITH PLAN OF CARE.
--- NOTE | 2017-01-23 10:50 | NUR ---
IN BED WATCHING TC. NO NEEDS VOICED AT THIS TIME. CALL LIGHT IN REACH.
--- NOTE | 2017-01-23 11:31 | NUR ---
SPOKE WITH DR. JOHNSON'S NURSE ABOUT PATIENT'S PAIN NOT BEING CONTROLLED. ZOSYN IVPB. NEW BAG OF SALINE INITIATED.
--- NOTE | 2017-01-23 11:43 | NUR ---
XANAX PO PER PATIENT REQUEST D/T ANXIETY. NEW ORDER RECEIVED FROM DR. JOHNSON'S NURSE FOR DILAUDID.
--- NOTE | 2017-01-23 13:09 | NUR ---
WENT TO DRAW UP DILAUDID AND DROPPED IT ON FLOOR IN ROOM IN FRONT OF PATIENT. LIVIA CARDONA, CAME IN ROOM TO WITNESS. ANOTHER VIAL PULLED AND ADMINISTERED IV PER ORDER.
--- NOTE | 2017-01-23 14:00 | NUR ---
REMAINS WITHOUT NEEDS.PAIN CONTROLLED
--- NOTE | 2017-01-23 16:16 | NUR ---
LOVENOX AND ZOSYN PER ORDER. CALL LIGHT IN REACH.
--- NOTE | 2017-01-23 18:49 | NUR ---
NO CHANGES IN INITIAL ASSESSMENT. CALL LIGHT IN REACH. WILL CONTINUE WITH PLAN OF CARE.
[2017-01-24] VITALS: BP 143/65
--- NOTE | 2017-01-24 01:15 | NUR ---
ASSESSED AT THE BEGINNING OF THE SHIFT. PT REMAINS IN ISOLATION AND IS ALERT AND ORIENTED, ABLE TO VERBALIZE NEEDS. SHE HAS A LT COLOSTOMY IN PLACE AND BILATERAL LOWER LEG EDEMA. SHE DOES GET UP TO THE BATHROOM TO EMPTY HER COLOSTOMY. SHE REFUSED HER SCD'S BUT IS TAKING LOVENOX. AT HS SHE REQUESTED AND TOOK PAIN MEDS AND XANAX ORDERED. SHE IS RESITNG WELL AND HAS NOT HAD ANY COMPLAINTS NOTED. THE BED IS LOW, RAILS UP X'S 2 WITH THE CALL LIGHT AT HAND.
[2017-01-24 04:00] VITALS: BP 144/55
[2017-01-24] MEDS ORDERED: MACROBID100 MG PO (06:43)
--- NOTE | 2017-01-24 07:30 | NUR ---
ASSESSMENT PER FLOW SHEET.PT WITHOUT DISTRESS.CALL LIGHT IN REACH.ISOLATION MAINTAINED
[2017-01-24 07:57] VITALS: BP 173/65
--- NOTE | 2017-01-24 11:00 | NUR ---
IV DC'D WITH CATH INTACT.DISCHARGE INSTRUCTIONS,STATES UNDERSTANDING.
--- NOTE | 2017-01-24 11:30 | NUR ---
LEFT UNIT VIA WHEELCHAIR FOR TRANSPORT DEONTE.
[2017-01-24 11:45] VITALS: BP 140/56
== END 2017-01-24 11:30 | disposition home health service (06) | DRG 690 ==
LOC: D.ER 12:33 → D.MS 16:20
PROVIDERS: Emergency Medicine; General Practice; ADMIT Legal Medicine
DX: N12 Tubulo-interstitial nephritis, not specified as acute or chronic (principal); I82.511 Chronic embolism and thrombosis of right femoral vein; K57.90 Diverticulosis of intestine, part unspecified, without perforation or abscess without bleeding; I10 Essential (primary) hypertension; K21.0 Gastro-esophageal reflux disease with esophagitis; F41.9 Anxiety disorder, unspecified; I87.2 Venous insufficiency (chronic) (peripheral); D72.829 Elevated white blood cell count, unspecified

== ENCOUNTER → 2017-04-28 18:11 | Outpatient (CLI) | payer MEDICARE ==
[2017-01-23 04:15] VITALS: BMI 25.1
[~2017-04-28 18:11] MED LIST changes: +MACROBID100 MG PO
== END | disposition home or self-care (01) ==
LOC: D.LABREF 18:11
DX: A04.7 Enterocolitis due to Clostridium difficile (principal)

== ENCOUNTER 2017-05-31 18:03 | Inpatient (IN) | payer MEDICARE ==
[~2017-05-31] VITALS: Ht 165.1 cm; Wt 70.4 kg
[2017-05-31] MEDS ORDERED: ATIVAN0.5 MG PO (21:42)
[2017-05-31] MEDS ORDERED: FLUTICASONE PRO16 GM NASAL (21:43)
[2017-06-01 00:59] VITALS: Ht 165.1 cm; Wt 70.4 kg
[2017-06-03 08:19] VITALS: BP 174/55
[2017-06-03] MEDS ORDERED: NORVASC10 MG PO (09:11)
[2017-06-03] MEDS ORDERED: BAYER CHEWABLE81 MG PO (09:11)
[2017-06-03] MEDS ORDERED: LOTENSIN40 MG PO (09:12)
[2017-06-03] MEDS ORDERED: FLUTICASONE PRO16 GM NASAL (09:12)
[2017-06-03] MEDS ORDERED: HYDROCODONE-APA1 TAB PO (09:12)
[2017-06-03] MEDS ORDERED: ATIVAN0.5 MG PO (09:12)
== END 2017-06-03 12:09 | disposition home or self-care (01) | DRG 690 ==
LOC: D.ER 18:03 → D.MS 20:35
PROVIDERS: ADMIT Legal Medicine
DX: N12 Tubulo-interstitial nephritis, not specified as acute or chronic (principal); I10 Essential (primary) hypertension; F41.9 Anxiety disorder, unspecified

== ENCOUNTER 2017-08-01 16:52 | Emergency (ER) | payer MEDICARE ==
[2017-06-01 00:59] VITALS: BMI 25.1
[~2017-08-01 16:52] MED LIST changes: +ATIVAN0.5 MG PO; +FLUTICASONE PRO16 GM NASAL; +LOTENSIN40 MG PO
[2017-08-01 17:18] LABS: APPEARANCE HAZY (CLEAR); BILIRUBIN NEGATIVE (NEGATIVE); COLOR YELLOW (YELLOW); GLUCOSE NEGATIVE (NEGATIVE); KETONE NEGATIVE (NEGATIVE); NITRITE POSITIVE (NEGATIVE); PROTEIN TRACE mg/dL (NEGATIVE); SPECIFIC GRAVITY 1.015 (1.005-1.020); UROBILINOGEN NORMAL (NORMAL)
[2017-08-01 17:22] LABS: BACTERIA MODERATE /hpf (NONE SEEN); EPITHELIAL CELLS 0-5 /hpf (0-5)
== END 2017-08-01 18:22 | disposition home or self-care (01) ==
LOC: D.ER 16:52
PROVIDERS: Emergency Medicine
DX: N39.0 Urinary tract infection, site not specified (principal)

== ENCOUNTER → 2017-08-05 14:54 | Outpatient (CLI) | payer MEDICARE ==
[2017-06-01 00:59] VITALS: BMI 25.1
[~2017-08-05 14:54] MED LIST changes: +NITROQUICK0.4 MG SL
== END | disposition home or self-care (01) ==
LOC: D.MAMMO 14:54
DX: Z12.31 Encounter for screening mammogram for malignant neoplasm of breast (principal)

== ENCOUNTER 2017-08-27 10:47 | Inpatient (IN) | payer MEDICARE ==
[~2017-08-27] VITALS: Ht 165.1 cm; Wt 71.5 kg
[~2017-08-27 10:47] MED LIST changes: -NITROQUICK0.4 MG SL
[2017-08-27 11:32] LABS: BASOPHILS 0.2 % (0-2); EOSINOPHILS 3.6 % (0-7); HEMATOCRIT 40.6 % (36.0-48.0); HEMOGLOBIN 13.7 g/dL (12-16); IMMATURE GRANULOCYTES 0.2 % (0-5); LYMPHOCYTES 18.7 % (15-50); MCH 30.2 pg (26.0-34.0); MCHC 33.7 g/dL (31.0-37.0); MCV 89.6 fL (80.0-100.0); MEAN PLATELET VOLUME 9.7 fL (7.4-10.4); MONOCYTES 8.2 % (2-11); NEUTROPHILS 69.1 % (40-80); RBC 4.53 10x6/uL (4.00-5.40); WBC 10.3 10x3/uL (4.8-10.8)
[2017-08-27 11:42] LABS: PLATELET COUNT 254 10x3/uL (130-400)
[2017-08-27 11:50] LABS: APPEARANCE HAZY (CLEAR); COLOR YELLOW (YELLOW)
[2017-08-27 11:51] LABS: BACTERIA MANY /hpf (NONE SEEN); BILIRUBIN NEGATIVE (NEGATIVE); EPITHELIAL CELLS 0-5 /hpf (0-5); GLUCOSE NEGATIVE (NEGATIVE); KETONE NEGATIVE (NEGATIVE); NITRITE NEGATIVE (NEGATIVE); PROTEIN NEGATIVE (NEGATIVE); UROBILINOGEN NORMAL (NORMAL)
[2017-08-27 12:17] LABS: ALBUMIN 4.1 g/dL (3.4-5.0); ANION GAP 15.5 mmol/L (8-16); BILIRUBIN - TOTAL 0.6 mg/dL (0.2-1.3); CALCIUM 9.9 mg/dL (8.5-10.1); CARBON DIOXIDE 23.8 mmol/L (21.0-32.0); CREATININE - SERUM 0.9 mg/dL (0.6-1.3); POTASSIUM - SERUM 4.3 mmol/L (3.5-5.1); PROTEIN - SERUM 8.1 g/dL (6.4-8.2)
--- NOTE | 2017-08-27 20:32 | NUR ---
PT ARRIVED FROM THE ER VIA WHEELCHAIR, ALERT AND ORIENTED TO ROOM AND CALL LIGHT. DENIES NEEDS AT THIS TIME. CALL LIGHT IN REACH, WILL CONTINUE PLAN OF CARE.
[2017-08-27] MEDS ORDERED: NITROQUICK0.4 MG SL (20:34)
[2017-08-27 21:56] VITALS: BP 157/63
--- NOTE | 2017-08-28 00:40 | NUR ---
PT RESTING WELL IN BED, RESPIRATIONS EVEN AND UNLABORED. CALL LIGHT IN REACH, WILL CONTINUE PLAN OF CARE.
[2017-08-28 06:09] VITALS: BP 150/53
--- NOTE | 2017-08-28 07:29 | NUR ---
AM ROUNDING- RECEIVED REPORT FROM LEAD ATG DEVELOPER NURSE VARUN. PT IS CURRENTLY SITTING UP IN BED WITH EYES CLOSED RESTING. ON 02 AT 2L VIA NC. ON MONITOR SHOWING SB, HR 53. IV SEEN TO RIGHT WRIST WITH NS RUNNING AT 50CC. NO NEED AT THIS CURRENT TIME. WILL CONTINUE TO MONITOR AND CONTINUE WITH PLAN OF CARE.
[2017-08-28 08:43] VITALS: BP 149/54
--- NOTE | 2017-08-28 10:02 | NUR ---
AM MEDICATIONS GIVEN WITH FEW SIPS OF WATER (PT IS NPO). SHIFT ASSESSMENT DONE. NORCO PRN GIVEN NEEDED FOR PAIN. WILL CONTINUE TO MONITOR.
[2017-08-28 13:12] VITALS: BP 144/55
[2017-08-28 13:42] VITALS: Ht 165.1 cm; Wt 71.5 kg
--- NOTE | 2017-08-28 16:14 | NUR ---
PT LAYING IN BED WATCHING TV. BED IN LOW POST. RAILS UP TIMES1. CALL LIGHT IN REACH. CONT TO MONITOR
[2017-08-28 17:17] VITALS: BP 147/52
--- NOTE | 2017-08-28 18:27 | NUR ---
PT LAYING IN BED WATCHING TV. BED LOW. RAILS UP TIMES 2. PT CALL LIGHT WITH IN REACH. PT STATES NO COMPLAINTS OR CONCERNS AT THIS TIME.
[2017-08-28 22:00] VITALS: BP 125/55
[2017-08-29 00:36] VITALS: BP 142/50
--- NOTE | 2017-08-29 01:16 | NUR ---
PT RESTING WITH EYES CLOSED. RESP EVEN AND REGULAR. SR UP X2, CALL LIGHT WITHIN REACH.
[2017-08-29 05:11] VITALS: BP 126/57
--- NOTE | 2017-08-29 06:41 | NUR ---
AM ROUNDING- RECEIVED REPORT FROM FORESTRY PATROLMAN NURSE VARUN. PT IS CURRENTLY SITTING UP IN BED WITH EYES OPEN GETTING BLOOD DRAWN. ON ROOM AIR. ON MONITOR SHOWING SB, HR 55. IV SEEN TO RIGHT WRIST WITH D5NS RUNNING AT 100CC. NO NEED AT THIS CURRENT TIME. PER VARUN PT JUST RECEIVED PAIN MEDICATION PRN ORDERED FOR PAIN. WILL CONTINUE TO MONITOR AND CONTINUE WITH PLAN OF CARE.
[2017-08-29 06:53] LABS: BASOPHILS 0.3 % (0-2); HEMATOCRIT 37.8 % (36.0-48.0); HEMOGLOBIN 12.7 g/dL (12-16); IMMATURE GRANULOCYTES 0.2 % (0-5); LYMPHOCYTES 23.8 % (15-50); MCH 30.2 pg (26.0-34.0); MCHC 33.6 g/dL (31.0-37.0); MEAN PLATELET VOLUME 10.1 fL (7.4-10.4); MONOCYTES 7.9 % (2-11); NEUTROPHILS 61.8 % (40-80); PLATELET COUNT 217 10x3/uL (130-400)
[2017-08-29 06:56] LABS: WBC 6.2 10x3/uL (4.8-10.8)
[2017-08-29 07:16] LABS: ANION GAP 11.2 mmol/L (8-16); CARBON DIOXIDE 26.6 mmol/L (21.0-32.0); CREATININE - SERUM 1.1 mg/dL (0.6-1.3); POTASSIUM - SERUM 3.8 mmol/L (3.5-5.1)
[2017-08-29 09:19] VITALS: BP 142/48
[2017-08-29 12:08] VITALS: BP 122/52
--- NOTE | 2017-08-29 13:37 | NUR ---
LIVIA MACIAS CAME TO INFORM ME THAT PTS HEART RATE GOT DOWN TO 38. LIVIA MACIAS STATES SHE WENT TO CHECK ON PT AND PT WAS ASLEEP WITH EYES CLOSED. COLLEEN BLAKE RN STATES PT DID NOT APPEAR TO BE BREATHING SO SHE SHOOK PT AND PT WOKE UP. I WENT TO CHECK ON PT AND PT IS CURRENTLY SITTING UP IN BED WITH EYES OEPN RESTING. I ASK PT IF SHE FEELS OK AND PT REPLIES "YES". WILL CONTINUE TO MONITOR.
[2017-08-29 17:07] VITALS: BP 137/50
--- NOTE | 2017-08-29 17:19 | NUR ---
PT IS CURRENTLY SITTING UP IN BED WITH EYES OPEN RESTING REQUESTING A PAIN PILL FOR 6/10 PAIN FROM ABDOMEN. I INFORMED PT THAT I WILL BRING PAIN MEDICATION BACK WHEN I BRING HER MEDICATIONS. WILL CONTINUE TO MONITOR.
--- NOTE | 2017-08-29 19:00 | NUR ---
ROUNDING NOTE: PT'S RIGHT IV SITE IS INFILTRTATED WILL RESITE IV AFTER NIGHT TIME MED PASS. PT DENIES ANY OTHER COMPLAINTS. TOLERATING FULL LIQUID DIET WITH MINIMAL/ACCEPTABLE PAIN. PT IS LOOKING FORWARD TO D/C TOMORROW. WILL CONT TO MONITOR.
[2017-08-29 21:08] VITALS: BP 142/51
--- NOTE | 2017-08-29 22:30 | NUR ---
PT'S IV RESITED TO LEFT WRIST WITH 22G SALINE LOC. PT STATES THAT IT HURTS IN THE BEND OF HER WRIST, BUT THE IV FLUSHES WELL AND SHE WILL KEEP THE SITE FOR NOW. WILL CONT TO MONITOR.
[2017-08-30 01:27] VITALS: BP 146/56
--- NOTE | 2017-08-30 03:30 | NUR ---
PT'S IV SITE IS BURNING HER FLAGYL IS INFUSING. THE SITE IS NOT RED AND IT DOES NOT APPEAR TO HAVE INFILTRATED, BUT THE PT STATES THAT SHE CANNOT TOLERATE THE PAIN; THEREFORE, THE IV SITE WAS D/C'D WITH CATH INTACT. PT IS REFUSING TO HAVE NEW IV RESTARTED SINCE SHE STATES THAT SHE WILL BE D/C'D TODAY ON PO MEDS. IF SHE IS NOT D/C'D TODAY THEN SHE WILL LIKELY NEED NEW IV SITE. WILL MONITOR.
[2017-08-30 06:42] LABS: BASOPHILS 0.3 % (0-2); EOSINOPHILS 5.4 % (0-7); HEMATOCRIT 37.5 % (36.0-48.0); HEMOGLOBIN 12.6 g/dL (12-16); IMMATURE GRANULOCYTES 0.3 % (0-5); LYMPHOCYTES 30.2 % (15-50); MCH 29.6 pg (26.0-34.0); MCHC 33.6 g/dL (31.0-37.0); MCV 88.2 fL (80.0-100.0); MEAN PLATELET VOLUME 9.8 fL (7.4-10.4); NEUTROPHILS 55.8 % (40-80); PLATELET COUNT 207 10x3/uL (130-400); RBC 4.25 10x6/uL (4.00-5.40); RDW 14.1 % (11.5-14.5); WBC 5.7 10x3/uL (4.8-10.8)
--- NOTE | 2017-08-30 06:44 | NUR ---
PER PT, NO STOOL IN HER COLOSTOMY, DUE TO LIMITED PO INTAKE, ONLY FULL LIQUID DIET.
[2017-08-30 06:51] VITALS: BP 174/58
[2017-08-30 07:18] LABS: ANION GAP 14.5 mmol/L (8-16); CALCIUM 9.1 mg/dL (8.5-10.1); CARBON DIOXIDE 23.7 mmol/L (21.0-32.0); CREATININE - SERUM 0.9 mg/dL (0.6-1.3); POTASSIUM - SERUM 4.2 mmol/L (3.5-5.1)
--- NOTE | 2017-08-30 08:15 | NUR ---
AM ROUNDS COMPLETED. INTRODUCED MYSELF TO PT PRIMARY RN FOR TODAYS SHIFT. PT A&O AND SITTING UP IN BED. SHIFT ASSESSMENT COMPLETED. PT STATES SHE IS READY FOR DISCHARGE AND NOTES INDICATE SHE SHOULD BE DISCHARGED TODAY. RR NONLABORED ON RA. TELEMETRY RUNNING SB AT 58. PT REQUESTED AND WAS PROVIDED WITH PRN PAIN MEDICATION ALONG WITH ZOFRAN FOR NAUSEA. STOOL SAMPLE NEEDED HOWEVER PT HASNT HAD ONE SHE STATES R/T DIET BEING CLEAR LIQUID BUT WILL PROVIDE IF SHE IS ABLE. NO CURRENT NEEDS AT THIS TIME. WILL AWAIT DOCTOR ROUNDS AND SEE ABOUT DISCHARGE.
[2017-08-30 08:24] VITALS: BP 167/59
[2017-08-30] MEDS ORDERED: LEVAQUIN500 MG PO (09:37)
[2017-08-30] MEDS ORDERED: FLAGYL500 MG PO (09:39)
--- NOTE | 2017-08-30 10:03 | NUR ---
DISCHARGE ORDERS HAVE BEEN OBTAINED WILL WORK ON DISCHARGE PAPERS AT THIS TIME. PT VOICED THANKS AND STATES SHE CALLED HER DAUGHTER FOR TRANSPORTATION. TELEMETRY REMOVED AND RETURNED TO [facility] [employer]. NO FURTHER NEEDS AT THIS TIME.
--- NOTE | 2017-08-30 10:44 | NUR ---
PAGED TO MAKE SURE SHE IS OKAY WITH THE D/C. PT ANXIOUS TO LEAVE. WILL CTM.
--- NOTE | 2017-08-30 11:11 | NUR ---
DISCHARGE TEACHING PROVIDED AND PAPERS SIGNED. PT VERBALIZED UNDERSTANDING AND DENIES ANY QUESTIONS OR CONCERNS AND IS READY TO LEAVE. DAUGHTER HERE FOR TRANSPORTATION. NO FURTHER NEEDS.
== END 2017-08-30 11:12 | disposition home or self-care (01) | DRG 392 ==
LOC: D.ER 10:47 → D.M2 19:10
PROVIDERS: Emergency Medicine; Internal Medicine Gastroenterology; ADMIT Legal Medicine
DX: K52.9 Noninfective gastroenteritis and colitis, unspecified (principal); Z93.3 Colostomy status; K57.30 Diverticulosis of large intestine without perforation or abscess without bleeding; I10 Essential (primary) hypertension; Z86.73 Personal history of transient ischemic attack (TIA), and cerebral infarction without residual deficits; Z72.0 Tobacco use

== ENCOUNTER 2017-09-14 09:20 | Emergency (ER) | payer MEDICARE ==
[2017-08-28 13:42] VITALS: BMI 26.1
[~2017-09-14 09:20] MED LIST changes: +NITROQUICK0.4 MG SL
[2017-09-14 10:06] LABS: APPEARANCE CLOUDY (CLEAR); BACTERIA MANY /hpf (NONE SEEN); BILIRUBIN NEGATIVE (NEGATIVE); COLOR YELLOW (YELLOW); GLUCOSE NEGATIVE (NEGATIVE); KETONE NEGATIVE (NEGATIVE); MUCUS <1+ /lpf (NONE SEEN); NITRITE POSITIVE (NEGATIVE); PROTEIN TRACE mg/dL (NEGATIVE); UROBILINOGEN NORMAL (NORMAL); WHITE CELLS - URINE 25-50 /hpf (0-5)
[2017-09-14 10:12] LABS: BASOPHILS 0.4 % (0-2); EOSINOPHILS 3.7 % (0-7); HEMATOCRIT 44.4 % (36.0-48.0); HEMOGLOBIN 14.8 g/dL (12-16); IMMATURE GRANULOCYTES 0.3 % (0-5); LYMPHOCYTES 22.6 % (15-50); MCH 30.2 pg (26.0-34.0); MCHC 33.3 g/dL (31.0-37.0); MCV 90.6 fL (80.0-100.0); MEAN PLATELET VOLUME 10.2 fL (7.4-10.4); PLATELET COUNT 188 10x3/uL (130-400); RDW 14.5 % (11.5-14.5); WBC 7.3 10x3/uL (4.8-10.8)
== END 2017-09-14 10:50 | disposition home or self-care (01) ==
LOC: D.ER 09:20
PROVIDERS: Family Medicine
DX: N39.0 Urinary tract infection, site not specified (principal); J44.9 Chronic obstructive pulmonary disease, unspecified

== ENCOUNTER 2017-10-28 10:57 | Emergency (ER) | payer MEDICARE ==
[2017-08-28 13:42] VITALS: BMI 26.1
[2017-10-28 12:01] LABS: APPEARANCE CLOUDY (CLEAR); COLOR YELLOW (YELLOW); GLUCOSE NEGATIVE (NEGATIVE); KETONE NEGATIVE (NEGATIVE); NITRITE POSITIVE (NEGATIVE); PROTEIN TRACE mg/dL (NEGATIVE); SPECIFIC GRAVITY 1.015 (1.005-1.020)
[2017-10-28 12:02] LABS: BACTERIA MANY /hpf (NONE SEEN); BILIRUBIN NEGATIVE (NEGATIVE); MUCUS <1+ /lpf (NONE SEEN); UROBILINOGEN NORMAL (NORMAL); WHITE CELLS - URINE 25-50 /hpf (0-5)
== END 2017-10-28 12:24 | disposition home or self-care (01) ==
LOC: D.ER 10:57
PROVIDERS: Emergency Medicine
DX: N39.0 Urinary tract infection, site not specified (principal); J44.9 Chronic obstructive pulmonary disease, unspecified

== ENCOUNTER 2018-01-27 17:04 | Emergency (ER) | payer MEDICARE ==
[2017-08-28 13:42] VITALS: BMI 26.1
[2018-01-27 18:19] LABS: APPEARANCE CLEAR (CLEAR); BILIRUBIN NEGATIVE (NEGATIVE); COLOR YELLOW (YELLOW); GLUCOSE NEGATIVE (NEGATIVE); KETONE NEGATIVE (NEGATIVE); NITRITE POSITIVE (NEGATIVE); PROTEIN NEGATIVE (NEGATIVE); UROBILINOGEN NORMAL (NORMAL)
[2018-01-27 18:20] LABS: BACTERIA MANY /hpf (NONE SEEN); EPITHELIAL CELLS 0-5 /hpf (0-5); RED CELLS - URINE OCC /hpf (0-5)
[2018-01-27 18:20] LABS: BASOPHILS 0.6 % (0-2); EOSINOPHILS 3.6 % (0-7); HEMATOCRIT 39.1 % (36.0-48.0); HEMOGLOBIN 13.5 g/dL (12-16); IMMATURE GRANULOCYTES 0.1 % (0-5); LYMPHOCYTES 32.2 % (15-50); MCH 30.7 pg (26.0-34.0); MCHC 34.5 g/dL (31.0-37.0); MCV 88.9 fL (80.0-100.0); MEAN PLATELET VOLUME 9.3 fL (7.4-10.4); MONOCYTES 7.5 % (2-11); PLATELET COUNT 215 10x3/uL (130-400); RDW 14.3 % (11.5-14.5); WBC 7.2 10x3/uL (4.8-10.8)
== END 2018-01-27 20:51 | disposition home or self-care (01) ==
LOC: D.ER 17:04
PROVIDERS: Emergency Medicine; Nurse Practitioner Family
DX: N39.0 Urinary tract infection, site not specified (principal); J44.9 Chronic obstructive pulmonary disease, unspecified

== ENCOUNTER 2018-03-01 07:40 | Emergency (ER) | payer MEDICARE ==
[~2018-03-01] VITALS: Ht 165.1 cm; Wt 70.5 kg
[2018-03-01 07:47] VITALS: Ht 165.1 cm; Wt 70.5 kg
[2018-03-01 08:11] LABS: BASOPHILS 0.5 % (0-2); EOSINOPHILS 4.1 % (0-7); HEMATOCRIT 42.5 % (36.0-48.0); HEMOGLOBIN 14.5 g/dL (12-16); IMMATURE GRANULOCYTES 0.5 % (0-5); LYMPHOCYTES 26.4 % (15-50); MCHC 34.1 g/dL (31.0-37.0); MEAN PLATELET VOLUME 9.3 fL (7.4-10.4); MONOCYTES 6.7 % (2-11); NEUTROPHILS 61.8 % (40-80); RBC 4.67 10x6/uL (4.00-5.40); RDW 14.3 % (11.5-14.5); WBC 8.2 10x3/uL (4.8-10.8)
[2018-03-01 08:20] LABS: PLATELET COUNT 261 10x3/uL (130-400)
[2018-03-01 08:35] LABS: ANION GAP 15.9 mmol/L (8-16); BILIRUBIN - TOTAL 0.35 mg/dL (0.2-1.3); CALCIUM 10.2 mg/dL (8.5-10.1); CARBON DIOXIDE 23.9 mmol/L (21.0-32.0); CREATININE - SERUM 1.2 mg/dL (0.6-1.3); POTASSIUM - SERUM 3.8 mmol/L (3.5-5.1)
[2018-03-01 08:40] LABS: APPEARANCE SLT CLOUDY (CLEAR); BILIRUBIN NEGATIVE (NEGATIVE); COLOR YELLOW (YELLOW); GLUCOSE NEGATIVE (NEGATIVE); KETONE NEGATIVE (NEGATIVE); NITRITE POSITIVE (NEGATIVE); PROTEIN NEGATIVE (NEGATIVE); SPECIFIC GRAVITY 1.015 (1.005-1.020); UROBILINOGEN NORMAL (NORMAL); WHITE CELLS - URINE 25-50 /hpf (0-5)
[2018-03-01 08:41] LABS: BACTERIA MANY /hpf (NONE SEEN); EPITHELIAL CELLS 0-5 /hpf (0-5); MUCUS <1+ /lpf (NONE SEEN); RED CELLS - URINE OCC /hpf (0-5)
[2018-03-01] MEDS ORDERED: LEVAQUIN500 MG PO (09:27)
[2018-03-01] MEDS ORDERED: ZOFRAN4 MG PO (09:27)
[2018-03-01 10:54] VITALS: BP 165/56
== END 2018-03-01 10:53 | disposition home or self-care (01) ==
LOC: D.ER 07:40
PROVIDERS: Family Medicine
DX: N39.0 Urinary tract infection, site not specified (principal); R30.0 Dysuria; I10 Essential (primary) hypertension; F17.200 Nicotine dependence, unspecified, uncomplicated

== ENCOUNTER 2018-03-06 15:43 | Emergency (ER) | payer MEDICARE ==
[~2018-03-06] VITALS: Ht 165.1 cm; Wt 70.5 kg
[~2018-03-06 15:43] MED LIST changes: +ZOFRAN4 MG PO
[2018-03-06 15:49] VITALS: Ht 165.1 cm; Wt 70.5 kg
[2018-03-06 17:20] LABS: BASOPHILS 0.4 % (0-2); EOSINOPHILS 3.6 % (0-7); HEMATOCRIT 39.8 % (36.0-48.0); HEMOGLOBIN 13.4 g/dL (12-16); IMMATURE GRANULOCYTES 0.7 % (0-5); LYMPHOCYTES 21.4 % (15-50); MCHC 33.7 g/dL (31.0-37.0); MCV 92.1 fL (80.0-100.0); MEAN PLATELET VOLUME 10.1 fL (7.4-10.4); MONOCYTES 8.9 % (2-11); RBC 4.32 10x6/uL (4.00-5.40); RDW 14.3 % (11.5-14.5); WBC 7.6 10x3/uL (4.8-10.8)
[2018-03-06 17:33] LABS: ALBUMIN 3.6 g/dL (3.4-5.0); ANION GAP 14.4 mmol/L (8-16); BILIRUBIN - TOTAL 0.32 mg/dL (0.2-1.3); CALCIUM 9.5 mg/dL (8.5-10.1); CARBON DIOXIDE 24.5 mmol/L (21.0-32.0); CREATININE - SERUM 1.1 mg/dL (0.6-1.3); PLATELET COUNT 173 10x3/uL (130-400); POTASSIUM - SERUM 3.9 mmol/L (3.5-5.1); PROTEIN - SERUM 7.7 g/dL (6.4-8.2)
[2018-03-06 19:59] LABS: APPEARANCE CLOUDY (CLEAR); BILIRUBIN NEGATIVE (NEGATIVE); COLOR DK YELLOW (YELLOW); GLUCOSE NEGATIVE (NEGATIVE); KETONE NEGATIVE (NEGATIVE); NITRITE POSITIVE (NEGATIVE); PROTEIN TRACE mg/dL (NEGATIVE); SPECIFIC GRAVITY 1.025 (1.005-1.020); UROBILINOGEN NORMAL (NORMAL)
[2018-03-06 20:00] LABS: RED CELLS - URINE 0-5 /hpf (0-5)
[2018-03-06 20:01] LABS: BACTERIA MODERATE /hpf (NONE SEEN)
[2018-03-06] MEDS ORDERED: VOLTAREN75 MG PO (20:31)
[2018-03-06] MEDS ORDERED: MACROBID100 MG PO (20:37)
[2018-03-06 21:12] VITALS: BP 138/47
== END 2018-03-06 21:00 | disposition home or self-care (01) ==
LOC: D.ER 15:43
PROVIDERS: Emergency Medicine
DX: N39.0 Urinary tract infection, site not specified (principal)

== ENCOUNTER → 2018-03-29 18:18 | Outpatient (CLI) | payer MEDICARE ==
[2018-03-06 15:49] VITALS: BMI 25.8
[~2018-03-29 18:18] MED LIST changes: +VOLTAREN75 MG PO
== END | disposition home or self-care (01) ==
LOC: D.LABREF 18:18
DX: N39.0 Urinary tract infection, site not specified (principal)

== ENCOUNTER → 2018-04-02 07:54 | Outpatient (CLI) | payer MEDICARE ==
[2018-03-06 15:49] VITALS: BMI 25.8
== END | disposition home or self-care (01) ==
LOC: D.RAD 07:54 → D.CT 11:00
DX: N32.1 Vesicointestinal fistula (principal)

== ENCOUNTER 2018-04-05 11:38 | Outpatient (CLI) | payer MEDICARE ==
[~2018-04-05] VITALS: Ht 165.1 cm; Wt 72.3 kg
[2018-04-05 13:35] VITALS: BP 128/50; Ht 165.1 cm; Wt 72.3 kg
== END 2018-04-05 14:47 | disposition home or self-care (01) ==
LOC: D.OPS 11:38
DX: N39.0 Urinary tract infection, site not specified (principal)

== ENCOUNTER 2018-04-08 15:01 | Emergency (ER) | payer MEDICARE ==
[~2018-04-08] VITALS: Ht 165.1 cm; Wt 63.6 kg
[2018-04-08 15:10] VITALS: Ht 165.1 cm; Wt 63.6 kg
[2018-04-08 16:28] VITALS: BP 156/67
== END 2018-04-08 16:27 | disposition home or self-care (01) ==
LOC: D.ER 15:01
DX: T82.898A Other specified complication of vascular prosthetic devices, implants and grafts, initial encounter (principal); Z99.81 Dependence on supplemental oxygen; Z86.73 Personal history of transient ischemic attack (TIA), and cerebral infarction without residual deficits; E11.9 Type 2 diabetes mellitus without complications; I10 Essential (primary) hypertension; Z85.41 Personal history of malignant neoplasm of cervix uteri; F17.200 Nicotine dependence, unspecified, uncomplicated

== ENCOUNTER 2018-04-17 10:11 | Emergency (ER) | payer MEDICARE ==
[~2018-04-17] VITALS: Ht 165.1 cm; Wt 72.3 kg
[2018-04-17 10:16] VITALS: Ht 165.1 cm; Wt 72.3 kg
[2018-04-17 11:38] LABS: BASOPHILS 0.4 % (0-2); EOSINOPHILS 6.3 % (0-7); HEMATOCRIT 36.7 % (36.0-48.0); HEMOGLOBIN 12.4 g/dL (12-16); IMMATURE GRANULOCYTES 0.2 % (0-5); LYMPHOCYTES 29.6 % (15-50); MCH 30.5 pg (26.0-34.0); MCHC 33.8 g/dL (31.0-37.0); MCV 90.2 fL (80.0-100.0); MEAN PLATELET VOLUME 9.5 fL (7.4-10.4); MONOCYTES 9.9 % (2-11); NEUTROPHILS 53.6 % (40-80); PLATELET COUNT 199 10x3/uL (130-400); RBC 4.07 10x6/uL (4.00-5.40); RDW 13.7 % (11.5-14.5); WBC 5.2 10x3/uL (4.8-10.8)
[2018-04-17 11:50] LABS: APTT 38.8 SECONDS (22.8-39.4); INR 1.04 (0.85-1.17); PROTIME 13.2 SECONDS (11.6-15.0)
[2018-04-17 11:51] LABS: D-DIMER-QUANTITATIVE 3.71 ug/mLFEU (0.20-0.54)
[2018-04-17 11:56] LABS: ALBUMIN 3.1 g/dL (3.4-5.0); ALKALINE PHOSPHATASE 78 U/L (46-116); ALT (SGPT) 13 U/L (10-68); BILIRUBIN - TOTAL 0.33 mg/dL (0.2-1.3); CALC OSMOLALITY 281 mosm/kg (275-300); CALCIUM 9.1 mg/dL (8.5-10.1); CARBON DIOXIDE 29.4 mmol/L (21.0-32.0); CHLORIDE - SERUM 105 mmol/L (98-107); CREATININE - SERUM 0.8 mg/dL (0.6-1.3); GLUCOSE 111 mg/dL (74-106); POTASSIUM - SERUM 3.9 mmol/L (3.5-5.1); PROTEIN - SERUM 7.4 g/dL (6.4-8.2); SODIUM 141 mmol/L (136-145); UREA NITROGEN 13 mg/dL (7-18); eGFR NON AFRICAN AMERICAN 74 mL/min (90-120)
[2018-04-17 12:08] LABS: CKMB 0.8 U/L (0.0-3.6); CREATINE KINASE 50 UL (21-215)
[2018-04-17 12:09] LABS: TROPONIN-I < 0.017 ng/mL (0.000-0.060)
[2018-04-17 16:35] VITALS: BP 142/81
== END 2018-04-17 16:36 | disposition home or self-care (01) ==
LOC: D.ER 10:11
PROVIDERS: Nurse Practitioner Family
DX: M79.621 Pain in right upper arm (principal); Z86.73 Personal history of transient ischemic attack (TIA), and cerebral infarction without residual deficits; I10 Essential (primary) hypertension

== ENCOUNTER 2018-04-17 17:47 | Emergency (ER) | payer MEDICARE ==
[~2018-04-17] VITALS: Ht 165.1 cm; Wt 72.3 kg
[2018-04-17 17:54] VITALS: BP 176/68; Ht 165.1 cm; Wt 72.3 kg
== END 2018-04-17 19:22 | disposition home or self-care (01) ==
LOC: D.ER 17:47
DX: T82.898A Other specified complication of vascular prosthetic devices, implants and grafts, initial encounter (principal); Z86.73 Personal history of transient ischemic attack (TIA), and cerebral infarction without residual deficits; Z85.41 Personal history of malignant neoplasm of cervix uteri; I10 Essential (primary) hypertension

== ENCOUNTER → 2018-04-19 13:13 | Outpatient (CLI) | payer MEDICARE ==
[2018-04-17 17:54] VITALS: BMI 26.5
== END | disposition home or self-care (01) ==
LOC: D.LABREF 13:13
DX: N39.0 Urinary tract infection, site not specified (principal)

== ENCOUNTER 2018-08-06 09:59 | Emergency (ER) | payer MEDICARE ==
[~2018-08-06] VITALS: Ht 165.1 cm; Wt 71.4 kg
[2018-08-06 10:04] VITALS: Ht 165.1 cm; Wt 71.4 kg
[2018-08-06 10:24] LABS: APPEARANCE HAZY (CLEAR); BILIRUBIN NEGATIVE (NEGATIVE); COLOR YELLOW (YELLOW); GLUCOSE NEGATIVE (NEGATIVE); KETONE NEGATIVE (NEGATIVE); NITRITE POSITIVE (NEGATIVE); PROTEIN TRACE mg/dL (NEGATIVE); SPECIFIC GRAVITY 1.015 (1.005-1.020); UROBILINOGEN NORMAL (NORMAL)
[2018-08-06 10:27] LABS: BASOPHILS 0.4 % (0-2); EOSINOPHILS 3.7 % (0-7); HEMATOCRIT 40.6 % (36.0-48.0); HEMOGLOBIN 13.7 g/dL (12-16); IMMATURE GRANULOCYTES 0.3 % (0-5); LYMPHOCYTES 28.6 % (15-50); MCH 30.4 pg (26.0-34.0); MCHC 33.7 g/dL (31.0-37.0); MEAN PLATELET VOLUME 9.5 fL (7.4-10.4); MONOCYTES 8.6 % (2-11); NEUTROPHILS 58.4 % (40-80); PLATELET COUNT 189 10x3/uL (130-400); RBC 4.51 10x6/uL (4.00-5.40); RDW 15.1 % (11.5-14.5); WBC 7.3 10x3/uL (4.8-10.8)
[2018-08-06 10:33] LABS: BACTERIA MODERATE /hpf (NONE SEEN); EPITHELIAL CELLS 0-5 /hpf (0-5); MUCUS <1+ /lpf (NONE SEEN); RED CELLS - URINE OCC /hpf (0-5)
[2018-08-06 10:45] LABS: ALBUMIN 3.9 g/dL (3.4-5.0); ANION GAP 16.4 mmol/L (8-16); BILIRUBIN - TOTAL 0.45 mg/dL (0.2-1.3); CALCIUM 9.8 mg/dL (8.5-10.1); CARBON DIOXIDE 20.7 mmol/L (21.0-32.0); CREATININE - SERUM 1.2 mg/dL (0.6-1.3); POTASSIUM - SERUM 4.1 mmol/L (3.5-5.1); PROTEIN - SERUM 8.3 g/dL (6.4-8.2)
[2018-08-06] MEDS ORDERED: MACROBID100 MG PO (10:52)
[2018-08-06] MEDS ORDERED: TYLENOL W/CODEI1 TAB PO (10:52)
[2018-08-06 11:14] VITALS: BP 168/75
== END 2018-08-06 11:14 | disposition home or self-care (01) ==
LOC: D.ER 09:59
PROVIDERS: Emergency Medicine
DX: N39.0 Urinary tract infection, site not specified (principal); R35.0 Frequency of micturition; R30.0 Dysuria; I10 Essential (primary) hypertension; Z85.41 Personal history of malignant neoplasm of cervix uteri; F17.200 Nicotine dependence, unspecified, uncomplicated

== ENCOUNTER → 2018-08-10 12:09 | Outpatient (CLI) | payer MEDICARE ==
[2018-08-06 10:04] VITALS: BMI 26.1
[~2018-08-10 12:09] MED LIST changes: +TYLENOL W/CODEI1 TAB PO
== END | disposition home or self-care (01) ==
LOC: D.OPS 12:09
DX: Z45.2 Encounter for adjustment and management of vascular access device (principal)

== ENCOUNTER 2018-09-04 14:31 | Emergency (ER) | payer MEDICARE ==
[~2018-09-04] VITALS: Ht 165.1 cm; Wt 70.9 kg
[2018-09-04 14:42] VITALS: Ht 165.1 cm; Wt 70.9 kg
[2018-09-04 15:01] LABS: BASOPHILS 0.4 % (0-2); EOSINOPHILS 3.8 % (0-7); HEMATOCRIT 42.7 % (36.0-48.0); HEMOGLOBIN 14.7 g/dL (12-16); IMMATURE GRANULOCYTES 0.1 % (0-5); LYMPHOCYTES 31.9 % (15-50); MCH 30.8 pg (26.0-34.0); MCHC 34.4 g/dL (31.0-37.0); MCV 89.5 fL (80.0-100.0); MEAN PLATELET VOLUME 9.6 fL (7.4-10.4); MONOCYTES 5.9 % (2-11); NEUTROPHILS 57.9 % (40-80); PLATELET COUNT 199 10x3/uL (130-400); RBC 4.77 10x6/uL (4.00-5.40); RDW 14.2 % (11.5-14.5); WBC 7.4 10x3/uL (4.8-10.8)
[2018-09-04 15:23] LABS: ALBUMIN 3.9 g/dL (3.4-5.0); ALKALINE PHOSPHATASE 62 U/L (46-116); ALT (SGPT) 11 U/L (10-68); BILIRUBIN - TOTAL 0.41 mg/dL (0.2-1.3); CALC OSMOLALITY 270 mosm/kg (275-300); CARBON DIOXIDE 24.4 mmol/L (21.0-32.0); CHLORIDE - SERUM 101 mmol/L (98-107); CREATININE - SERUM 0.9 mg/dL (0.6-1.3); GLUCOSE 93 mg/dL (74-106); PROTEIN - SERUM 8.7 g/dL (6.4-8.2); SODIUM 136 mmol/L (136-145); UREA NITROGEN 10 mg/dL (7-18); eGFR NON AFRICAN AMERICAN 65 mL/min (90-120)
[2018-09-04 15:27] LABS: AMYLASE - SERUM 50 U/L (25-115); LIPASE 244 U/L (73-393); TROPONIN-I < 0.017 ng/mL (0.000-0.060)
[2018-09-04 15:54] LABS: CKMB 0.7 U/L (0.0-3.6); CREATINE KINASE 43 UL (21-215)
[2018-09-04 15:55] LABS: APTT 35.3 SECONDS (22.8-39.4); INR 1.05 (0.85-1.17); PROTIME 13.2 SECONDS (11.6-15.0)
[2018-09-04 16:16] LABS: APPEARANCE HAZY (CLEAR); BILIRUBIN NEGATIVE (NEGATIVE); COLOR YELLOW (YELLOW); GLUCOSE NEGATIVE (NEGATIVE); KETONE NEGATIVE (NEGATIVE); NITRITE POSITIVE (NEGATIVE); PROTEIN NEGATIVE (NEGATIVE); SPECIFIC GRAVITY 1.015 (1.005-1.020); UROBILINOGEN NORMAL (NORMAL)
[2018-09-04 16:17] LABS: BACTERIA FEW /hpf (NONE SEEN); EPITHELIAL CELLS OCC /hpf (0-5); RED CELLS - URINE NONE SEEN /hpf (0-5); WHITE CELLS - URINE OCC /hpf (0-5)
[2018-09-04] MEDS ORDERED: MACROBID100 MG PO (16:32)
[2018-09-04] MEDS ORDERED: MEDROL DOSE PACK4 MG PO (16:32)
[2018-09-04] MEDS ORDERED: CYCLOBENZAPRINE10 MG PO (16:32)
[2018-09-04] MEDS ORDERED: ACETAMINOPHEN500 M1 PO (16:32)
[2018-09-04 16:46] VITALS: BP 153/62
== END 2018-09-04 16:48 | disposition home or self-care (01) ==
LOC: D.ER 14:31
PROVIDERS: Family Medicine
DX: N39.0 Urinary tract infection, site not specified (principal); M54.5 Low back pain; I10 Essential (primary) hypertension; F17.200 Nicotine dependence, unspecified, uncomplicated; I45.10 Unspecified right bundle-branch block; Z93.3 Colostomy status

== ENCOUNTER 2018-09-05 13:33 | Observation (INO) | payer MEDICARE ==
[~2018-09-05] VITALS: Ht 165.1 cm; Wt 70.9 kg
[2018-09-05] VITALS (8 sets, daily range): BP systolic 114–170; BP diastolic 44–65; Ht 165.1 cm; Wt 70.9 kg
--- NOTE | ~2018-09-05 | OP ---
PATIENT NAME: BETY ALVAREZ MEDICAL RECORD: [id number] :41 LOCATION:D.M2 D.2115 ADMISSION DATE:09/05/18 SURGEON: COLIN MONTES MD DATE OF OPERATION: 09/06/2018 DATE OF SERVICE: 09/06/2018 PROCEDURE: 1. Aortofemoral runoff. 2. Abdominal aortography. INDICATION: Claudication and peripheral vascular disease. PROCEDURE IN DETAIL: After informed consent was obtained and after detailed description of risks, benefits as well as alternative therapies, the patient elected to proceed with angiogram and aortofemoral runoff. The right femoral area had a preexisting sheath from coronary intervention. All catheters exchanged through this sheath. FINDINGS: Abdominal aortography was performed. The catheter was pulled down for aortofemoral runoff. Abdominal aortography reveals no significant abdominal aortic disease, no dissection or aneurysm formation. RIGHT LEG: A. Iliac: The common internal and external iliacs have mild irregularities, but no flow-limiting stenosis. B. Femoral system: The common superficial and deep femoral mild irregularities, but no flow-limiting stenosis. C. Popliteal and infrapopliteal vessels are widely patent with good 3-vessel runoff to the foot. LEFT LEG: A. Iliac: The common iliac is widely patent. External iliac appears to be 90-95% stenosed. B. Femoral system: The common superficial and deep femoral have mild irregularities, but no flow-limiting stenosis. C. Popliteal and infrapopliteal vessels are widely patent with good 3-vessel runoff to the foot. OVERALL IMPRESSION: Significant disease of the left external iliac that is amenable to transcatheter revascularization. TRANSINT:[id number] Voice Confirmation ID: [id number] DOCUMENT ID: [id number] COLIN MONTES MD at 1457 CC: [id number] DICTATION DATE: 09/06/18 1425 CARD CHECKER: 09/06/18 1510 DIS IN 09/06/18 [place] [id number] [place] [id number]
--- NOTE | ~2018-09-05 | DS ---
PATIENT:BETY CHAN :41 MEDICAL RECORD: [id number] DISCHARGE SUMMARY ADMISSION DATE: 09/05/18 DISCHARGE DATE: 09/06/18 DISCHARGE DIAGNOSES: 1. Unstable angina. 2. Coronary artery disease. 3. Percutaneous transluminal coronary angioplasty stent left anterior descending this admission. 4. Peripheral vascular disease. 5. Hypertension. 6. Bradycardia. HOSPITAL COURSE: Mrs. Chan presents with unstable anginal symptomatology, found to have significant disease of the LAD, underwent successful PTCA stent of the LAD, was discharged home with the addition of Plavix to her medical regimen. We will follow up with an outpatient multi-day monitor for evaluation of the bradycardia, else mckeon will follow up with [facility] within month. TRANSINT:[id number] Voice Confirmation ID: [id number] DOCUMENT ID: [id number] COLIN MONTES MD at 1457 CC: [id number] DICTATION DATE: 09/06/18 1426 SUPERVISOR STAVE CUTTING: 09/06/18 2151 DIS IN 09/06/18 [place] [id number] [place] [address]
--- NOTE | ~2018-09-05 | OP ---
PATIENT NAME: BETY ALVAREZ MEDICAL RECORD: [id number] :41 LOCATION:D.M2 D.2115 ADMISSION DATE:09/05/18 SURGEON: COLIN MONTES MD DATE OF OPERATION: 09/06/2018 DATE OF SERVICE: 09/06/2018 PROCEDURES: 1. PTCA stent of LAD. 2. Left heart catheterization. 3. Selective coronary angiography. 4. Left ventriculogram. INDICATION: Angina, unstable coronary artery disease. PROCEDURE IN DETAIL: After informed consent was obtained and after a detailed description of the risks, benefits as well as alternative therapies, the patient elected to proceed with angiogram and angioplasty. The right femoral area was prepped and draped in normal sterile fashion. Right femoral artery was cannulated via modified Seldinger technique with placement of 6-Kinyarwanda sheath. All catheters exchanged through this sheath. FINDINGS: The left ventriculogram was performed in a standard 30-degree MART view, reveals good cardiac wall motion throughout all segments. Overall ejection fraction estimated 60%. SELECTIVE CORONARY ANGIOGRAPHY: 1. Left main is with no significant angiographic disease. 2. Left anterior descending has previously placed stent that is widely patent. After this, there is an aneurysmal area. After the aneurysmal area, there is a 90% stenosis in the mid vessel. 3. Left circumflex has mild irregularities, but no flow-limiting stenosis. 4. Right coronary has mild irregularities, but no flow-limiting stenosis. PTCA STENT OF THE LAD: The stent used is a 2.25 x 9 mm Integrity. Result was 0% residual stenosis. OVERALL IMPRESSION: Successful percutaneous transluminal coronary angioplasty stent of the left anterior descending going from 90% initial stenosis to 0% residual. TRANSINT:[id number] Voice Confirmation ID: [id number] DOCUMENT ID: [id number] COLIN MONTES MD at 1457 CC: [id number] DICTATION DATE: 09/06/18 1425 BREAD WRAPPING MACHINE FEEDER: 09/06/18 1506 DIS IN 09/06/18 [place] [id number] [place] [id number]
--- NOTE | ~2018-09-05 | HP ---
PATIENT: BETY ALVAREZ MEDICAL RECORD: [id number] ACCOUNT: [id number] LOCATION:[address] : 41 ADMISSION DATE: 09/05/18 PCP: VINICIO JOHNSON MD HISTORY AND PHYSICAL EXAMINATION DIAGNOSES: 1. Angina. 2. Coronary disease. 3. Previous PTCA and stent. 4. Bradycardia. 5. Hypertension. 6. Shortness of breath and dyspnea on exertion. HISTORY: Mrs. Alvarez presents with shortness of breath, dyspnea on exertion, and chest pressure. She does have a history of coronary disease. Last PTCA and stent was in 2012. She has been quite bradycardic. She is on no medications that would cause her bradycardia. Her bradycardia is a sinus bradycardia. Heart rate is as low as the high 30s. PHYSICAL EXAMINATION: GENERAL APPEARANCE: Well-nourished, well-developed, appears stated age. Level of distress, comfortable. PSYCHIATRIC: Mental status, alert, normal affect. Orientation, oriented to time, place and person. EYES: Lids and conjunctiva, noninjected. No discharge, no pallor. ENT: Lips, teeth, gums, normal dentition. Oropharynx, no cyanosis, no pallor. NECK: Carotid arteries, bilateral normal upstroke, no bruits, no thrills. JUGULAR VEINS: No jugular venous pressure or distention. CERVICAL LYMPH NODES: Nontender, nonenlarged. THYROID: Not enlarged. Nontender. No nodules. LUNGS: Respiratory effort, unlabored. CHEST: Normal curvature. No thoracic deformity. No chest wall tenderness. Percussion, resonant. Auscultation, clear. No wheezes, no rales, no rhonchi. CARDIOVASCULAR: Precordial exam, nondisplaced. No heaves or pericardial thrills. Rate and rhythm, regular. Heart sounds, normal S1, normal S2. No S3, no gallop, no rub. Systolic murmur, not heard. Diastolic murmur, not heard. EXTREMITIES: No cyanosis, no edema. Peripheral pulses, full and equal in all extremities, except as noted. No bruits appreciated. ABDOMEN: Soft, nondistended. Normal aorta. No bruit. Nontender. No masses. Liver, nontender, no hepatomegaly. Spleen, nontender, no splenomegaly. MUSCULOSKELETAL: No joint tenderness. No joint swelling. No erythema. NEUROLOGICAL: Normal gait, normal strength, normal tone. SKIN: Warm and dry. OVERALL IMPRESSION: Anginal symptomatology with bradycardia. We will proceed with coronary angiography. The patient very well may need permanent pacemaker. If coronary angiography reveals no significant disease, then her symptomatology would be due to the symptomatic bradycardia. TRANSINT:[id number] Voice Confirmation ID: [id number] DOCUMENT ID: [id number] HISTORY AND PHYSICAL [id number] BETY ALVAREZ, COLIN KOWALSKI at 1457 CC: [id number] DICTATION DATE: 09/06/18 1039 MEDIA BUYER: 09/06/18 1050 DIS IN 09/06/18 [facility] [address] [place] [address]
--- NOTE | ~2018-09-05 | MORECARE ---
CASE MANAGEMENT DISCHARGE SUMMARY PATIENT: BETY ALVAREZ UNIT: [id number] ADM DATE: 09/05/18 AGE: 73 : 41 SEX: F ROOM/BED: D.7192 AUTHOR: ESAU BRADEN PHYSICIAN: REFERRING PHYSICIAN: COLIN MONTES MD DATE OF SERVICE: 09/08/18 Discharge Plan Patient Name: BETY ALVAREZ [facility] [facility] 1945 Planned Disposition: Home Anticipated Discharge Date: 09/06/18 Discharge Date: 09/06/2018 Expected LOS: 1 Initial Reviewer: [id number] Initial Review Date: 09/08/2018 Generated: 09/08/18 8:06 am Patient Name: BETY ALVAREZ Page [id number] at 0706 All edits/amendments must be made on the electronic document DICTATION DATE: 09/08/18704 [employer] EXAMINER: CARLOS 09/08/18 07 RPT#: [id number] DC DATE:09/06/18 STATUS: DIS IN [facility] [address] [place] [address] END OF REPORT
--- NOTE | ~2018-09-05 | HEMODYNAMI ---
PATIENT:BETY ALVAREZ MEDICAL RECORD: [id number] : 41 [facility] D.2[id number] ADMISSION DATE: 09/05/18 Generatedon:09/06/201814:23 Patient name: BETY ALVAREZ Patient #: [id number] SSN: : 1945 Date of study: 09/06/2018 Page: Of Hemodynamic Procedure Report Patient Data Patient Demographics Procedure consent was obtained First Name: BETY Gender: Female Last Name: ANTONIO : 1945 Middle Initial: L Age: 73 year(s) Patient #: [id number] Race: Unknown Additional ID: [id number] Contact details [address]: [address] [place] [address] State: [place] City: [place] Zip code: [address] Past Medical History Allergies Allergen Reaction Date Comments Reported Other allergy 12/26/2016 rocephin, sulfa, erythromycin, morphine, vanc Other allergy 09/06/2018 See chrt Admission Admission Data Admission Date: 09/05/2018 Admission Time: 14:44 Admit Source: Other Room #: D.2115 Procedure Procedure Types Cath Procedure Diagnostic Procedure LHC LH w/Coronaries Sedation Charges Moderate Sedation up to 15 minutes PCI Procedure Coronary Stent Coronary Stent Initial Peripheral Cath Diagnostic Procedure Commercial Specialist Peripheral Procedures Edouq-Qxlckih-Fps-Off Peripheral vascular Intervention Procedure Description Procedure Date Procedure Date: 09/06/2018 Procedure Start Time: 14:03 Procedure End Time: 14:23 Procedure Staff Name Function Evan Bravo MD Performing Physician Lucretia Lea RT Monitor Tima Sol RT Scrub Chantelle Cobian RN Nurse Procedure Data Cath Procedure Fluoroscopy Diagnostic fluoroscopy Total fluoroscopy Time: 4.4 time: 4.4 min min Diagnostic fluoroscopy Total fluoroscopy dose: 477 dose: 477 mGy mGy Contrast Material Contrast Material Type Amount (ml) Isovue 370 126 Entry Location Entry Primary Successful Side Size Upsize Upsize Entry Closure Succes sful Closure Location (Fr) 1 (Fr) 2 (Fr) Remarks Device Remarks Femoral Right 5 Fr 6 Fr artery Short Estimated blood loss: 10 ml Diagnostic catheters Device Type Used For End Catheter Placement MULTIPACK Pigtail 5 Fr Procedure catheter MULTIPACK JL 4.0 5Fr Procedure catheter MULTIPACK 3DRC 5Fr Procedure catheter Procedure Complications No complications Procedure Medications Medication Administration Route Dosage Oxygen etCO2 Nasal cannula 2 l/min Lidocaine 2% added to field 20 Heparin Flush Bag added to field 2 bags (1000units/500ml NS) 0.9% NaCl I.V. 100 ml/hr Versed I.V. 1 mg Fentanyl I.V. 50 mcg Versed I.V. 1 mg Fentanyl I.V. 50 mcg Heparin Bolus I.V. 4000 units Fentanyl I.V. 50 mcg Fentanyl I.V. 50 mcg Plavix P.O. 75 mg Hemodynamics Rest Heart Rate: 47 (bpm) Snapshots Pre Cath Intra NCS Post Cath Vital Signs Time Heart Resp SPO2 etCO2 NIBP (mmHg) Rhythm Pain Sedation Rate (ipm) (%) (mmHg) Status Level (bpm) 13:50:12 48 14 98 0 165/68(141) SB 0 (11) 10(A) , No pain 13:59:23 45 16 99 0 164/60(133) SB 0 (11) 10(A) , No pain 14:03:37 41 23 98 0 130/52(104) SB 0 (11) 10(A) , No pain 14:07:51 39 40 94 0 112/51(105) SB 0 (11) 9(A) , No pain 14:12:03 48 37 95 0 129/55(95) SB 0 (11) 9(A) , No pain 14:16:25 48 40 96 0 127/51(104) SB 0 (11) 9(A) , No pain 14:20:31 51 17 97 0 109/54(100) SB 0 (11) 10(A) , No pain Medications Time Medication Route Dose Verified Delivered Reason Notes Effectiveness by by 13:59:29 Oxygen etCO2 2 Evan Lockhart used for Nasal l/min Lawrence Cobian electrical sign servicer cannula 14:01:13 Lidocaine 2% added 20ml Evan Gordon for local to vial Lawrence Bravo MD anesthetic field 14:01:19 Heparin Flush added 2 Evan Gordon used for Bag to bags Lawrence Bravo MD procedure (1000units/500ml field NS) 14:01:28 0.9% NaCl I.V. 100 Evan Torresie Per physician ml/hr Lawrence Cobian RN 14:01:34 Versed I.V. 1 mg Evan Torresie for sedation Lawrence Cobian RN 14:01:40 Fentanyl I.V. 50 Evan Buffie for sedation mcg Lawrence Cobian RN 14:04:35 Versed I.V. 1 mg Evan Torresie for sedation Lawrence Cobian RN 14:04:39 Fentanyl I.V. 50 Evan Buffie for sedation mcg Lawrence Cobian RN 14:08:36 Fentanyl I.V. 50 Evan Buffie for sedation mcg Lawrence Cobian RN 14:12:22 Heparin Bolus I.V. 4000 Evan Buffie for verif ied units Lawrence Cobian RN anticoagulation with dr bravo 14:16:37 Fentanyl I.V. 50 Evan Buffie for sedation mcg Lawrence Cobian RN 14:21:17 Plavix P.O. 75 mg Evan Lockhart for Lawrence Cobian RN antiplatelet therapy Procedure Log Time Note 13:20:56 Informed consent obtained and on chart 13:20:58 Admit Source: Other 13:21:13 Diagnostic Cath status Elective 13:21:14 Evan Bravo MD sent for patient. Start room use. 13:21:15 Time tracking: Call back (After hours or weekends) 13:21:23 Plan of Care:Hemodynamics will remain stable., Cardiac rhythm will remain stable., Comfort level will be maintained., Respiratory function will remain adequate., Patient/ family verbilizes understanding of procedure., Procedure tolerated without complication., Recovers from procedure without complications.. 13:31:02 Patient received from Med II to CCL 1 Unconscious. Tansferred to table in Supine position. 13:31:06 Warm blankets applied, and tad hugger turned on for patient comfort. 13:31:06 Correct patient and procedure confirmed by team. 13:47:54 ECG and BP/O2 sat monitors applied to patient. 13:47:55 Vital chart was started 13:48:01 Baseline sample Acquired. 13:48:11 Rhythm: sinus rhythm 13:48:13 Full Disclosure recording started 13:48:43 H&P Date Dictated: 09/05/2018 Within 30 days and on chart., H&P Addendum completed by physician on day of procedure. (MUST COMPLETE FOR ALL OUTPATIENTS). 13:48:46 Pre-procedure instructions explained to patient. 13:48:48 Family in waiting room. 13:48:50 Patient NPO since Midnight. 13:49:03 Patient allergic to Other allergySee chrt 13:49:07 Is the patient allergic to Iodine/contrast media? No. 13:49:09 Is patient on blood thinner?Yes 13:49:12 ACC The patient was administered the following blood thiners within the last 24 hours: ACCPlavix 13:49:24 Patient diabetic? No. 13:49:28 Snore? Yes 13:49:30 Sleep apnea? No 13:49:42 Airway obstruction? No ? 13:49:49 Dentures? No ? 13:49:54 Patient pain scale 0/10 ?. 13:50:06 IV patent on arrival in left hand with 0.9% NaCl at KVO. 13:50:21 IV started by Chantelle Cobian RN inleft forearm with a 22 gauge IV catheter with 0.9% NaCl at KVO. 13:50:28 IV left hand D/C'd due to infiltration. 13:50:32 Lab results completed and on chart. 13:59:29 Oxygen 2 l/min etCO2 Nasal cannula was administered by Chantelle Cobian RN; used for procedure; 14:00:47 Right groin area was prepped with chlora-prep and draped in sterile fashion 14:00:48 Alarms reviewed by R. N. 14:00:49 Sharps counted by scrub and verified by R.N. 14:00:50 Physician paged 14:00:51 Physician arrived 14:00:51 --------ALL STOP TIME OUT------ 14:00:52 Final Timeout: patient, procedure, and site verified with staff and physician. All members of the team are in agreement. 14:00:54 Right groin site verified by team. 14:00:57 Physical assessment completed. ASA score P 2 - A patient with mild systemic disease as per Evan Bravo MD. 14:01:00 Sedation plan: IV Moderate Sedation Medication:Versed, Fentanyl 14:01:08 Use device set Femoral Dx 14:01:10 ACIST Syringe (07180) opened to sterile field. 14:01:10 Bag Decanter (2002S) opened to sterile field. 14:01:11 Medline Cath Pack ([id number]) opened to sterile field. 14:01:11 DIAGNOSTIC WIRE .035 260cm J wire (399562) opened to sterile field. 14:01:12 ACIST Hand Control (10886) opened to sterile field. 14:01:13 Lidocaine 2% 20ml vial added to field was administered by Evan Bravo MD; for local anesthetic; 14:01:13 ACIST Manifold (61487) opened to sterile field. 14:01:14 DIAGNOSTIC Multipack 5Fr catheter set (GH9186) opened to sterile field. 14:01:14 Tegaderm 4 x 4 (1626W) opened to sterile field. 14:01:16 SHEATH 5FR [place] (YKW071) opened to sterile field. 14:01:19 Heparin Flush Bag (1000units/500ml NS) 2 bags added to field was administered by Evan Bravo MD; used for procedure; 14:01:24 Zero performed for pressure channel P1 14:01:28 0.9% NaCl 100 ml/hr I.V. was administered by Chantelle Cobian RN; Per physician; 14:01:34 Versed 1 mg I.V. was administered by Chantelle Cobian RN; for sedation; 14:01:40 Fentanyl 50 mcg I.V. was administered by Chantelle Cobian RN; for sedation; 14:03:24 Procedure started. 14:03:28 Local anesthetic to right femoral artery with Lidocaine 2% by Evan Bravo MD.INITIAL ACCESS ONLY 14:04:35 Versed 1 mg I.V. was administered by Chantelle Cobian RN; for sedation; 14:04:39 Fentanyl 50 mcg I.V. was administered by Chantelle Cobian RN; for sedation; 14:05:09 A 5 Fr sheath was inserted into the Right Femoral artery 14:07:19 A MULTIPACK Pigtail 5 Fr catheter was advanced over the wire and used for Procedure. 14:08:17 LV gram done using MART 14:08:36 Fentanyl 50 mcg I.V. was administered by Chantelle Cobian RN; for sedation; 14:08:38 EF : 60 % 14:08:46 Catheter removed. 14:09:37 A MULTIPACK JL 4.0 5Fr catheter was advanced over the wire and used for Procedure. 14:10:01 LCA angiography performed. 14:10:02 Catheter removed. 14:10:10 A MULTIPACK 3DRC 5Fr catheter was advanced over the wire and used for Procedure. 14:11:35 GUIDE 6FR XBLAD 3.5 catheter (65927863) opened to sterile field. 14:11:40 RCA angiography performed. 14:11:41 Catheter removed. 14:11:52 INFLATOR Merit BasixCompak (ZX1731) opened to sterile field. 14:11:53 SHEATH 6FR [place] (KSH954) opened to sterile field. 14:12:01 CHOICE PT Extra Support 182cm wire ([id number]) opened to sterile field. 14:12:10 Proceeding to intervention. 14:12:19 Sheath upsized to a 6 Fr Short. 14:12:22 Heparin Bolus 4000 units I.V. was administered by Chantelle Cobian RN; for anticoagulation; verified with dr bravo 14:12:34 6 Fr XBLAD3.5 guide catheter was inserted over the wire 14:12:42 choice pt ex wire advanced. 14:12:55 Wire advanced across lesion. 14:15:42 Place stent Inflation Number: 1 A INTEGRITY RX 2.25 x 08 stent ([id number]) was prepped and advanced across the Mid LAD. The stent was deployed at 9 HALI for 0:08 (min:sec). 14:15:52 EXOSEAL 6Fr (EX600) opened to sterile field. 14:15:57 Wire removed. 14:15:59 Guide catheter removed. 14:16:33 Abdominal Aortagram was performed. 14:16:37 Fentanyl 50 mcg I.V. was administered by Chantelle Cobian RN; for sedation; 14:16:40 Right leg runoff performed. 14:16:42 Left leg runoff performed. 14:18:28 Catheter removed. 14:18:31 Procedure ended.(Physican Out) 14:19:20 Fluoroscopy time 04.40 minutes. 14:19:30 Fluoroscopy dose: 477 mGy 14:19:30 Flurop Dose total: 477 14:20:13 Contrast amount:Isovue 370 126ml. 14:20:16 Sharps counted by scrub and verified by R.N. 14:20:31 Insertion/operative site no bleeding no hematoma. 14:20:37 Post-op/insertion site Right Femoral artery dressed using a 4 x 4 and Tegaderm. 14:20:39 Post Procedure Pulses reassessed and unchanged 14:20:42 Post-procedure physical assessment completed. ASA score P 2 - A patient with mild systemic disease as per Evan Bravo MD. 14:20:45 Post procedure rhythm: unchanged. 14:20:48 Estimated blood loss: 10 ml 14:20:50 Post procedure instruction explained to patient.Patient verbalizes understanding. 14:20:51 Patient needs reinforcement of post procedure teaching. 14:21:17 Plavix 75 mg P.O. was administered by Chantelle Cobian RN; for antiplatelet therapy; 14:21:48 Procedure type changed to Cath procedure, Diagnostic procedure, LHC, LHC w/Coronaries, Sedation Charges, Moderate Sedation up to 15 minutes, PCI procedure, Coronary Stent, Coronary Stent Initial, Peripheral Cath Diagnostic Procedure, Commercial Specialist Peripheral Procedures, Bzuek-Dvjsbaw-Tye-Off, Peripheral vascular Intervention 14:21:55 Procedure and supply charges have been captured, reviewed, submitted and are correct. 14:23:20 Procedure Complication : No complications 14:23:22 Vital chart was stopped 14:23:23 See physician's report for complete and final results. 14:23:25 Report given to Pre/Post Procedure Room. 14:23:29 Patient transfered to Pre/Post Procedure Room with Stretcher. 14:23:31 Procedure ended. 14:23:31 Full Disclosure recording stopped 14:23:34 End room use (Document Last) 14:23:39 ACC-PCI Only Patient was given prescriptions, or instructed by Evan Bravo MD to start/continue the following medications upon discharge: Plavix Intervention Summary Intervention Notes Time ActionType Lesion and Equipment Action# Pressure Duration Attributes Used 14:15:42 Place stent Mid LAD INTEGRITY RX 1 9 00:08 2.25 x 08 stent ([id number]) Device Usage Item Name Manufacture Quantity Catalog Number Hospital Part Current [facility] Lot# / Charge Number Stock Stock Serial# Code ACIST Acist 1 62176 406247 519068 453453 20 Syringe COVEGA (19755) Systems Inc Bag Decanter Microtek 1 492427 86582 845900 5 () Medical Inc. Medline Cath Medline 1 [id number] 030566 00541 385061 5 Pack ([id number]) DIAGNOSTIC St Jono 1 732553 044089 602728 918449 30 WIRE .035 260cm J wire (778980) ACIST Hand Acist 1 43516 005977 353297 358959 5 Control Medical (95545) Systems Inc ACIST Acist 1 11805 282738 231731 333211 5 Manifold Medical (48043) Systems Inc DIAGNOSTIC Cardinal 1 KJ2743 916266 19608 294978 30 Multipack Health 5Fr catheter set (GL1125) Tegaderm 4 x 3M 1 1626W 001098 449656 559321 5 4 (1626W) SHEATH 5FR Terumo 1 GKJ901 139743 947794 604519 5 [place] (LNH370) MULTIPACK Cardinal 1 687313 5 Pigtail 5 Fr Health catheter MULTIPACK JL Cardinal 1 167341 5 4.0 5Fr Health catheter MULTIPACK Cardinal 1 722661 5 3DRC 5Fr Health catheter GUIDE 6FR Cardinal 1 13460473 163542 628822 818825 10 XBLAD 3.5 Health catheter ([id number]) INFLATOR Lindsey Shell 1 KO7742 594932 668789 976184 15 Lindsey Shell Medical BasixCompak (MI1805) SHEATH 6FR Terumo 1 WXE999 353367 560504 210981 40 [place] (AUV977) CHOICE PT [place] 1 [id number] 067314 630596 667573 5 Extra Scientific Support 182cm wire ([id number]) INTEGRITY RX Medtronic 1 [id number] 865189 902319 287534 5 [id number] 2.25 x 08 stent ([id number]) EXOSEAL 6Fr Cardinal 1 EX600 808832 543513 691165 10 (EX600) Health Signature Audit [place] Stage Time Signature Unsigned Intra-Procedure 09/06/2018 Lucretia Lea 2:23:54 PM RT(R) Signatures Monitor : Lucretia Lea Signature : RT Date : Time : [facility] [address] [place], [place] [id number]
[~2018-09-05 13:33] MED LIST changes: +ACETAMINOPHEN500 M1 PO; +CYCLOBENZAPRINE10 MG PO; +MEDROL DOSE PACK4 MG PO
[2018-09-05 14:59] LABS: BASOPHILS 0.1 % (0-2); EOSINOPHILS 0 % (0-7); HEMATOCRIT 36.7 % (36.0-48.0); HEMOGLOBIN 12.5 g/dL (12-16); IMMATURE GRANULOCYTES 0.5 % (0-5); LYMPHOCYTES 13.5 % (15-50); MCH 29.8 pg (26.0-34.0); MCHC 34.1 g/dL (31.0-37.0); MCV 87.6 fL (80.0-100.0); MEAN PLATELET VOLUME 9.2 fL (7.4-10.4); MONOCYTES 4.8 % (2-11); NEUTROPHILS 81.1 % (40-80); PLATELET COUNT 231 10x3/uL (130-400); RBC 4.19 10x6/uL (4.00-5.40); RDW 14.1 % (11.5-14.5); WBC 14.3 10x3/uL (4.8-10.8)
[2018-09-05 15:07] LABS: INR 1.01 (0.85-1.17); PROTIME 12.8 SECONDS (11.6-15.0)
[2018-09-05 15:09] LABS: APTT 21.9 SECONDS (22.8-39.4)
[2018-09-05 15:12] LABS: ALBUMIN 3.8 g/dL (3.4-5.0); ALKALINE PHOSPHATASE 56 U/L (46-116); ALT (SGPT) 11 U/L (10-68); BILIRUBIN - TOTAL 0.34 mg/dL (0.2-1.3); CALCIUM 9.3 mg/dL (8.5-10.1); CARBON DIOXIDE 20.8 mmol/L (21.0-32.0); CKMB 1.2 U/L (0.0-3.6); CREATINE KINASE 51 UL (21-215); CREATININE - SERUM 0.9 mg/dL (0.6-1.3); GLUCOSE 114 mg/dL (74-106); MAGNESIUM - SERUM 2.2 mg/dL (1.8-2.4); PROTEIN - SERUM 7.9 g/dL (6.4-8.2); eGFR NON AFRICAN AMERICAN 65 mL/min (90-120)
[2018-09-05 15:19] LABS: TROPONIN-I < 0.017 ng/mL (0.000-0.060); UREA NITROGEN 18 mg/dL (7-18)
[2018-09-05 15:36] LABS: CALC OSMOLALITY 272 mosm/kg (275-300); CHLORIDE - SERUM 99 mmol/L (98-107); SODIUM 135 mmol/L (136-145)
[2018-09-05 21:32] LABS: CKMB 0.7 U/L (0.0-3.6); CREATINE KINASE 41 UL (21-215)
[2018-09-05 21:35] LABS: TROPONIN-I 0.016 ng/mL (0.000-0.060)
[2018-09-06 03:45] VITALS: BP 120/53
[2018-09-06 05:46] LABS: CKMB 0.8 U/L (0.0-3.6); CREATINE KINASE 62 UL (21-215)
[2018-09-06 05:51] LABS: TROPONIN-I < 0.017 ng/mL (0.000-0.060)
[2018-09-06 08:41] VITALS: BP 123/46
[2018-09-06 12:16] VITALS: BP 108/44
[2018-09-06 16:31] VITALS: BP 145/52
[2018-09-06] MEDS ORDERED: PLAVIX75 MG PO (17:37)
== END 2018-09-06 19:41 | disposition home or self-care (01) ==
LOC: D.ER 13:33 → OBSVTIME 14:44 → D.M2 14:44
PROVIDERS: Family Medicine
DX: I25.110 Atherosclerotic heart disease of native coronary artery with unstable angina pectoris (principal); Z95.5 Presence of coronary angioplasty implant and graft; I70.212 Atherosclerosis of native arteries of extremities with intermittent claudication, left leg; R00.1 Bradycardia, unspecified; I10 Essential (primary) hypertension; Z95.0 Presence of cardiac pacemaker

== ENCOUNTER 2018-10-01 09:04 | Emergency (ER) | payer MEDICARE ==
[~2018-10-01] VITALS: Ht 165.1 cm; Wt 70.0 kg
[~2018-10-01 09:04] MED LIST changes: +PLAVIX75 MG PO
[2018-10-01 09:15] VITALS: Ht 165.1 cm; Wt 70.0 kg
[2018-10-01 10:29] LABS: APPEARANCE HAZY (CLEAR); COLOR YELLOW (YELLOW); NITRITE POSITIVE (NEGATIVE); SPECIFIC GRAVITY 1.015 (1.005-1.020)
[2018-10-01 10:30] LABS: BACTERIA MANY /hpf (NONE SEEN); BILIRUBIN NEGATIVE (NEGATIVE); EPITHELIAL CELLS 0-5 /hpf (0-5); GLUCOSE NEGATIVE (NEGATIVE); KETONE NEGATIVE (NEGATIVE); MUCUS <1+ /lpf (NONE SEEN); PROTEIN TRACE mg/dL (NEGATIVE); UROBILINOGEN NORMAL (NORMAL); WHITE CELLS - URINE 0-5 /hpf (0-5)
[2018-10-01 11:22] LABS: BASOPHILS 0.4 % (0-2); EOSINOPHILS 5.5 % (0-7); HEMATOCRIT 39.1 % (36.0-48.0); HEMOGLOBIN 13.3 g/dL (12-16); IMMATURE GRANULOCYTES 0.6 % (0-5); LYMPHOCYTES 24.1 % (15-50); MCH 30.2 pg (26.0-34.0); MCV 88.7 fL (80.0-100.0); MEAN PLATELET VOLUME 9.2 fL (7.4-10.4); NEUTROPHILS 62.4 % (40-80); PLATELET COUNT 225 10x3/uL (130-400); RBC 4.41 10x6/uL (4.00-5.40); RDW 14.3 % (11.5-14.5); WBC 5.4 10x3/uL (4.8-10.8)
[2018-10-01 11:38] LABS: ALBUMIN 3.6 g/dL (3.4-5.0); ANION GAP 15.6 mmol/L (8-16); BILIRUBIN - TOTAL 0.32 mg/dL (0.2-1.3); CALCIUM 9.4 mg/dL (8.5-10.1); CARBON DIOXIDE 24.5 mmol/L (21.0-32.0); POTASSIUM - SERUM 4.1 mmol/L (3.5-5.1); PROTEIN - SERUM 8.2 g/dL (6.4-8.2)
[2018-10-01] MEDS ORDERED: AUGMENTIN 875-11 TAB PO (11:48)
[2018-10-01 12:17] VITALS: BP 160/69
== END 2018-10-01 12:17 | disposition home or self-care (01) ==
LOC: D.ER 09:04
PROVIDERS: Family Medicine
DX: N39.0 Urinary tract infection, site not specified (principal); R31.9 Hematuria, unspecified; F17.200 Nicotine dependence, unspecified, uncomplicated

== ENCOUNTER → 2018-12-13 07:47 | Outpatient (CLI) | payer MEDICARE ==
[~2018-12-13] VITALS: Ht 165.1 cm; Wt 73.2 kg
--- NOTE | ~2018-12-13 | OP ---
PATIENT NAME: BETY ALVAREZ MEDICAL RECORD: [id number] :41 LOCATION:D.CAT ADMISSION DATE: SURGEON: COLIN MONTES MD DATE OF OPERATION: 12/13/2018 PROCEDURES: 1. Stent placement, iliac, left. 2. SCULPTURE INSTRUCTOR iliac, left. 3. Unilateral extremity angiography. INDICATION: Claudication and peripheral vascular disease. PROCEDURE IN DETAIL: After informed consent was obtained and after a detailed description of risks, benefits as well as alternative therapies, the patient elected to proceed with angiogram and angioplasty. Both femoral areas were prepped and draped in normal sterile fashion. Both femoral artery was cannulated via modified Seldinger technique with placement of 6-[place]oven[place] sheath. FINDINGS: The ostium of the left iliac had a 90% heavily calcified stenosis. We initially tried an 8 x 29 Viky stent through the left groin, the stent would not cross and retracting the stent into the sheath, the stent then embolized partially in the sheath and partially out of the sheath. We were able to pull the sheath back to the entry site and stent embolized in the common femoral area. We then went to the right groin approach. Went around the horn. We were able to push the stent down to the SFA. We deployed the embolized stent in the SFA successfully with a 7 balloon. We then turned our attention to the iliac and deployed a 7 x 39 Viky stent in the iliac. Result was 0% residual stenosis. OVERALL IMPRESSION: Successful SCULPTURE INSTRUCTOR stent of the left iliac going from 90% initial stenosis to 0% residual. TRANSINT:[id number] Voice Confirmation ID: [id number] DOCUMENT ID: [id number] COLIN MONTES MD CC: [id number] DICTATION DATE: 12/13/18 1022 ASSISTANT MEDIA BUYER: 12/13/18 1212 [facility] [address] [place] [address]
--- NOTE | ~2018-12-13 | HP ---
PATIENT: BETY CHAN MEDICAL RECORD: [id number] ACCOUNT: [id number] LOCATION:[facility] : 41 ADMISSION DATE: 12/13/18 PCP: VINICIO JOHNSON MD HISTORY AND PHYSICAL EXAMINATION DIAGNOSES: 1. Left leg claudication. 2. Peripheral vascular disease. 3. Coronary artery disease. 4. Hypertension. 5. Hyperlipidemia. HISTORY OF PRESENT ILLNESS: Ms. Chan presents with left leg pain. She underwent aortofemoral runoff in the past, revealing critical disease of the left common iliac that is amenable to transcatheter revascularization. She is now brought for repair of that. PHYSICAL EXAMINATION: GENERAL APPEARANCE: Well-nourished, well-developed, appears stated age. Level of distress, comfortable. PSYCHIATRIC: Mental status, alert, normal affect. Orientation, oriented to time, place and person. EYES: Lids and conjunctiva, noninjected. No discharge, no pallor. ENT: Lips, teeth, gums, normal dentition. Oropharynx, no cyanosis, no pallor. NECK: Carotid arteries, bilateral normal upstroke, no bruits, no thrills. JUGULAR VEINS: No jugular venous pressure or distention. CERVICAL LYMPH NODES: Nontender, nonenlarged. THYROID: Not enlarged. Nontender. No nodules. LUNGS: Respiratory effort, unlabored. CHEST: Normal curvature. No thoracic deformity. No chest wall tenderness. Percussion, resonant. Auscultation, clear. No wheezes, no rales, no rhonchi. CARDIOVASCULAR: Precordial exam, nondisplaced. No heaves or pericardial thrills. Rate and rhythm, regular. Heart sounds, normal S1, normal S2. No S3, no gallop, no rub. Systolic murmur, not heard. Diastolic murmur, not heard. EXTREMITIES: No cyanosis, no edema. Peripheral pulses, full and equal in all extremities, except as noted. No bruits appreciated. ABDOMEN: Soft, nondistended. Normal aorta. No bruit. Nontender. No masses. Liver, nontender, no hepatomegaly. Spleen, nontender, no splenomegaly. MUSCULOSKELETAL: No joint tenderness. No joint swelling. No erythema. NEUROLOGICAL: Normal gait, normal strength, normal tone. SKIN: Warm and dry. OVERALL IMPRESSION: Left leg claudication with left leg iliac disease amenable to transcatheter revascularization. We will proceed with aortofemoral runoff and transcatheter revascularization of the left iliac. TRANSINT:[id number] Voice Confirmation ID: [id number] DOCUMENT ID: [id number] HISTORY AND PHYSICAL [id number] BETY CHAN JEFFREY MD CC: [id number] DICTATION DATE: 12/13/18900 SUPERVISOR [employer] FABRICATION: 12/13/18918 [facility] [address] [place] [id number]
--- NOTE | ~2018-12-13 | HEMODYNAMI ---
PATIENT:BETY ALVAREZ MEDICAL RECORD: [id number] : 41 LOCATION:[facility]U ADMISSION DATE: 12/13/18 Generatedon:12/13/201810:29 Patient name: BETY ALVAREZ Patient #: [id number] SSN: : 1945 Date of study: 12/13/2018 Page: Of Hemodynamic Procedure Report Patient Data Patient Demographics Procedure consent was obtained First Name: BETY Gender: Female Last Name: ANTONIO : 1945 Middle Initial: L Age: 73 year(s) Patient #: [id number] Race: Unknown Additional ID: [id number] Contact details [address]: [address] [place] [address] State: [place] City: [place] Zip code: [address] Past Medical History Allergies Allergen Reaction Date Comments Reported Other allergy 12/26/2016 rocephin, sulfa, erythromycin, morphine, vanc Other allergy 09/06/2018 See chrt Admission Admission Data Admission Date: 12/13/2018 Admission Time: 7:47 Admit Source: Other Procedure Procedure Types Cath Procedure Peripheral vascular Intervention Stent Stent Iliac w/plasty Initial Procedure Description Procedure Date Procedure Date: 12/13/2018 Procedure Start Time: 9:38 Procedure End Time: 10:26 Procedure Staff Name Function Evan Bravo MD Performing Physician Ector Joseph RT Monitor Juventino Moscoso RT Scrub Parris Lopez RN Nurse Procedure Data Cath Procedure Fluoroscopy Diagnostic fluoroscopy Total fluoroscopy Time: 15 time: 15 min min Diagnostic fluoroscopy Total fluoroscopy dose: 524 dose: 524 mGy mGy Contrast Material Contrast Material Type Amount (ml) Isovue 300 83 Entry Location Entry Primary Successful Side Size Upsize 1 Upsize Entry Closure Gallardo ccessful Closure Location (Fr) (Fr) 2 (Fr) Remarks Device Remarks Femoral Left 6 Fr 6 Fr artery Short Mid-Length Femoral Right 6 Fr Exoseal artery Short Diagnostic catheters Device Type Used For End Catheter Placement DIAGNOSTIC MPA-2 5Fr Procedure catheter ([id number]) Procedure Medications Medication Administration Route Dosage 0.9% NaCl I.V. 100 ml/hr Oxygen etCO2 Nasal cannula 2 l/min Lidocaine 2% added to field 20 Heparin Flush Bag added to field 2 bags (1000units/500ml NS) Versed I.V. 2 mg Fentanyl I.V. 50 mcg Versed I.V. 2 mg Fentanyl I.V. 50 mcg Heparin Bolus I.V. 3000 units Fentanyl I.V. 50 mcg Fentanyl I.V. 50 mcg Versed I.V. 1 mg Hemodynamics Rest Heart Rate: 51 (bpm) Snapshots Pre Cath Intra NCS Post Cath Vital Signs Time Heart Resp SPO2 etCO2 NIBP (mmHg) Rhythm Pain Sedation Rate (ipm) (%) (mmHg) Status Level (bpm) 9:03:53 52 12 100 35.6 167/67(123) SB 0 (11) 10(A) , No pain 9:08:25 57 10 100 33.3 161/59(116) SB 0 (11) 10(A) , No pain 9:12:54 48 13 100 18.9 147/54(118) SB 0 (11) 10(A) , No pain 9:17:20 53 11 100 36.3 144/60(114) SB 0 (11) 10(A) , No pain 9:21:48 49 11 100 22.7 132/53(100) SB 0 (11) 10(A) , No pain 9:26:13 49 12 100 32.5 136/53(106) SB 0 (11) 10(A) , No pain 9:30:37 50 12 100 27.2 134/55(98) SB 0 (11) 10(A) , No pain 9:36:02 51 11 100 28.8 134/50(106) SB 0 (11) 10(A) , No pain 9:40:25 48 12 100 31.8 147/58(119) SB 0 (11) 10(A) , No pain 9:44:53 47 16 100 34.8 128/60(105) SB 0 (11) 9(A) , No pain 9:50:06 50 18 100 19.7 133/57(109) SB 0 (11) 10(A) , No pain 9:54:26 49 15 100 32.5 150/61(115) SB 0 (11) 9(A) , No pain 9:58:51 46 16 100 36.3 144/56(111) SB 0 (11) 10(A) , No pain 10:03:15 50 17 100 37.9 152/63(108) SB 0 (11) 9(A) , No pain 10:07:41 50 19 99 21.2 138/53(112) SB 0 (11) 9(A) , No pain 10:12:05 48 19 98 11.3 125/50(89) SB 0 (11) 9(A) , No pain 10:16:25 50 16 100 34 123/56(109) SB 0 (11) 10(A) , No pain 10:20:45 49 10 99 34.8 128/54(87) SB 0 (11) 10(A) , No pain 10:25:06 47 13 100 35.6 145/59(118) SB 0 (11) 10(A) , No pain Medications Time Medication Route Dose Verified Delivered Reason Notes Effectiveness by by 9:02:45 0.9% NaCl I.V. 100 Evan Parris used for ml/hr Lawrence Lopez financial reserve clerk 9:03:00 Oxygen etCO2 2 Evan Parris used for Nasal l/min Lawrence Lopez procedure cannula RN 9:03:05 Lidocaine 2% added 20ml Evan Evan for local to vial Lawrence Bravo MD anesthetic field 9:03:10 Heparin Flush added 2 Evan Evan used for Bag to bags Lawrence Bravo MD procedure (1000units/500ml field NS) 9:35:56 Versed I.V. 2 mg Evan Parris for sedation Lawrence Lopez RN 9:36:02 Fentanyl I.V. 50 Evan Parris for sedation mcg Lawrence Lopez RN 9:41:37 Versed I.V. 2 mg Evan Parris for sedation Lawrence Lopez RN 9:41:41 Fentanyl I.V. 50 Evan Parris for sedation mcg Lawrence Lopez RN 9:41:46 Heparin Bolus I.V. 3000 Evan Parris for verif ied units Lawrence Lopez anticoagulation with Dr. LIVIA Bravo 9:53:42 Fentanyl I.V. 50 Evan Parris for sedation mcg Lawrence Lopez RN 10:00:21 Fentanyl I.V. 50 Evan Nye for sedation mcg Lawrence Lopez RN 10:03:27 Versed I.V. 1 mg Evan Nye for sedation Lawrence Lopez RN Procedure Log Time Note 8:15:23 Admit Source: Other 8:16:02 Diagnostic Cath status Elective 8:16:05 Juventino Moscoso RT(R) sent for patient. Start room use. 8:16:07 Time tracking: Regular hours (M-F 7:00 - 5:00) 8:16:11 Plan of Care:Hemodynamics will remain stable., Cardiac rhythm will remain stable., Comfort level will be maintained., Respiratory function will remain adequate., Patient/ family verbilizes understanding of procedure., Procedure tolerated without complication., Recovers from procedure without complications.. 8:16:20 Patient received from Pre/Post Procedure Room to CCL 1 Alert and oriented. Tansferred to table in Supine position. 8:17:36 Warm blankets applied, and tad hugger turned on for patient comfort. 8:17:37 Correct patient and procedure confirmed by team. 8:17:39 Signed procedure consent form obtained from patient. 8:17:41 ECG and BP/O2 sat monitors applied to patient. 9:02:30 Vital chart was started 9:02:45 0.9% NaCl 100 ml/hr I.V. was administered by Parris Lopez RN; used for procedure; 9:03:00 Oxygen 2 l/min etCO2 Nasal cannula was administered by Parris Lopez RN; used for procedure; 9:03:05 Lidocaine 2% 20ml vial added to field was administered by Evan Bravo MD; for local anesthetic; 9:03:10 Heparin Flush Bag (1000units/500ml NS) 2 bags added to field was administered by Evan Bravo MD; used for procedure; 9:08:08 Baseline sample Acquired. 9:08:10 Rhythm: sinus rhythm 9:08:14 Full Disclosure recording started 9:12:26 H&P Date Dictated: 12/13/2018 Within 30 days and on chart.. 9:12:40 Pre-procedure instructions explained to patient. 9:12:41 Pre-op teaching completed and patient verbalized understanding. 9:12:44 Family unavailable. 9:12:46 Patient NPO since Midnight. 9:13:06 Is the patient allergic to Iodine/contrast media? No. 9:13:10 Is patient on blood thinner?Yes 9:13:14 ACC The patient was administered the following blood thiners within the last 24 hours: ACCPlavix 9:13:16 Patient diabetic? No. 9:13:17 ----Pre-sedation anethsthesia assessment.---- 9:13:20 Previous problem with sedation/anesthesia? No ? 9:13:31 Snore? Yes 9:13:33 Sleep apnea? No 9:14:08 Deviated septum? No 9:14:10 Opens mouth fully? Yes 9:14:12 Sticks out tongue? Yes 9:14:30 Airway obstruction? No ? 9:14:36 Dentures? Yes out 9:14:47 Pre procedure: right dorsailis pedis pulse 1+ Palpable, but thready & weak; easily obliterated 9:14:51 Pre procedure: left dorsailis pedis pulse Doppler 9:14:56 Patient pain scale 0/10 ?. 9:15:04 IV patent on arrival in right antecubital with 0.9% NaCl at 10ml/hr. 9:15:12 Lab results completed and on chart. 9:15:15 Bilateral groins area was prepped with chlora-prep and draped in sterile fashion 9:15:16 Alarms reviewed by R. N. 9:15:17 Sharps counted by scrub and verified by R.N. 9:29:01 Zero performed for pressure channel P1 9:35:26 Physician arrived 9:35:26 --------ALL STOP TIME OUT------ 9:35:27 Final Timeout: patient, procedure, and site verified with staff and physician. All members of the team are in agreement. 9:35:29 Bilateral groins site verified by team. 9:35:33 Maximum allowable Isovue 300 dose 300ml. Physician notified. (300ml for normal creatinines. For patients with creatinine of 1.7 or higher multiply weight(kg) x 5 divided by creatinine.) 9:35:37 Fire Safety Assessment: A--An alcohol-based skin anteseptic being used preoperatively., C--Open oxygen or nitrous oxide is being used., D--An ESU, laser, or fiber-optic light is being used. 9:35:45 Physical assessment completed. ASA score P 2 - A patient with mild systemic disease as per Evan Bravo MD. 9:35:49 Sedation plan: IV Moderate Sedation Medication:Versed, Fentanyl 9:35:56 Versed 2 mg I.V. was administered by Parris Lopez RN; for sedation; 9:36:02 Fentanyl 50 mcg I.V. was administered by Parris Lopez RN; for sedation; 9:38:32 ACIST Syringe (65508) opened to sterile field. 9:38:33 Bag Decanter (2001S) opened to sterile field. 9:38:33 Medline Cath Pack ([id number]) opened to sterile field. 9:38:34 DIAGNOSTIC WIRE .035 260cm J wire ([id number]) opened to sterile field. 9:38:35 ACIST Hand Control (60886) opened to sterile field. 9:38:36 ACIST Manifold (29539) opened to sterile field. 9:38:37 Tegaderm 4 x 4 (1626W) opened to sterile field. 9:38:47 Procedure started. 9:38:53 Local anesthetic to left femerol artery with Lidocaine 2% by Evan Bravo MD.INITIAL ACCESS ONLY 9:39:02 A 6 Fr Short sheath was inserted into the Left Femoral artery 9:39:10 SHEATH 6FR Arnold (PFP636) opened to sterile field. 9:39:23 INFLATOR Merit BasixCompak (WG2976) opened to sterile field. 9:39:39 SHEATH 6FR Brite Tip 35cm ([id number]) opened to sterile field. 9:39:54 Sheath upsized to a 6 Fr Mid-Length. 9:40:41 Procedure type changed to Cath procedure, Peripheral vascular Intervention, Stent, Stent Iliac w/plasty Initial 9:40:57 CHOICE PT Extra Support J 300cm guide wire ([id number]) opened to sterile field. 9:41:37 Versed 2 mg I.V. was administered by Parris Lopez RN; for sedation; 9:41:41 Fentanyl 50 mcg I.V. was administered by Parris Lopez RN; for sedation; 9:41:46 Heparin Bolus 3000 units I.V. was administered by Parris John RN; for anticoagulation; verified with Dr. Bravo 9:41:56 cptes wire advanced. 9:46:32 Place stent Inflation Number: 1 A SONYA 8 x 29 x 135 stent ([id number]) was prepped and advanced across the Undefined1. The stent was deployed at 0 HALI for 1:03 (min:sec). 9:53:42 Fentanyl 50 mcg I.V. was administered by Parris Lopez RN; for sedation; 9:55:16 STENT CAME OFF OF THE BALLOON DURING INSERTION 9:56:42 Local anesthetic to right femoral artery with Lidocaine 2% by Evan Bravo MD.ADDITIONAL ACCESS 9:57:38 LEFT FEMORAL SHEATH REMOVED INTACT 9:58:14 SHEATH 6FR Arnold (PHF164) opened to sterile field. 9:58:25 A 6 Fr Short sheath was inserted into the Right Femoral artery 9:59:39 GLIDE WIRE ANGLE 260cm (IX6958) opened to sterile field. 10:00:21 Fentanyl 50 mcg I.V. was administered by Parris Lopez RN; for sedation; 10:01:11 GLIDE WIRE ADVANCED INTO THE STENT 10:02:06 SHEATH 6FR Destination (RSR01) opened to sterile field. 10:02:33 6 FR. PINNACLE SHEATH REMOVED AND DESTINATION INSERTED 10:03:27 Versed 1 mg I.V. was administered by Parris Lopez RN; for sedation; 10:04:14 A DIAGNOSTIC MPA-2 5Fr catheter ([id number]) was advanced over the wire and used for Procedure. 10:04:38 SHEATH ADVANCED OVER THE MULTI PURPOSE 10:05:24 STENT BALLOON INFLATED IN THE LEFT PROXIMAL ILIAC 10:06:55 STENT BALLOON RUPTURED, REMOVED INTACT 10:08:03 THE UNDEPLOYED STENT WAS PUSHED BY THE SHEATH TIP INTO THE LEFT SFA 10:09:32 Inflate balloon Inflation number: 1 A POWERFLEX PRO 7.0 x 20 x 135 cm balloon ([id number]) was prepped and advanced across the Proximal Superficial Femoral, Left, then inflated to 9 HALI for 0:10 (min:sec). 10:12:42 THE SONYA STENT WAS SUCCESSFULLY INFLATED INTO THE SFA 10:15:05 Place stent Inflation Number: 1 A SONYA 7 x 39 x 135 stent ([id number]) was prepped and advanced across the Proximal Common Iliac, Left. The stent was deployed at 10 HALI for 0:10 (min:sec). 10:17:29 EXOSEAL 6Fr (EX600) opened to sterile field. 10:17:53 Stent catheter was removed intact over wire. 10:17:54 Wire removed. 10:18:42 DESTINATION REMOVED OVER THE J WIRE AND REPLACED BY SHORT SHEATH 10:19:08 Sheath removed intact; hemostasis achieved with Exoseal to the Right Femoral artery. 10:23:54 Procedure ended.(Physican Out) 10:23:59 Fluoroscopy time 15.00 minutes. 10:24:05 Fluoroscopy dose: 524 mGy 10:24:05 Flurop Dose total: 524 10:24:11 Contrast amount:Isovue 300 83ml. 10:24:15 Sharps counted by scrub and verified by R.N. 10:24:16 Insertion/operative site no bleeding no hematoma. 10:24:20 Post-op/insertion site Right Femoral artery dressed using a 4 x 4 and Tegaderm. 10:24:23 Post-op/insertion site Left Femoral artery dressed using a 4 x 4 and Tegaderm. 10:24:27 Post right femoral artery:stable 10:24:33 Post left femerol artery:stable 10:24:34 Post Procedure Pulses reassessed and unchanged 10:24:37 Post procedure: right dorsailis pedis pulse 1+ Palpable, but thready & weak; easily obliterated. 10:24:40 Post procedure: left dorsailis pedis pulse 1+ Palpable, but thready & weak; easily obliterated. 10:24:43 Post procedure rhythm: sinus rhythm 10:24:45 Post procedure instruction explained to patient.Patient verbalizes understanding. 10:26:06 Procedure and supply charges have been captured, reviewed, submitted and are correct. 10:26:28 Vital chart was stopped 10::28 See physician's report for complete and final results. 10:26:31 Report given to Pre/Post Procedure Room. 10:26:35 Patient transfered to Pre/Post Procedure Room with Stretcher. 10:26:37 Procedure ended. 10:26:37 Full Disclosure recording stopped 10:26:41 End room use (Document Last) Intervention Summary Intervention Notes Time ActionType Lesion and Equipment Action# Pressure Duration Attributes Used 9:46:32 Place stent Undefined1 SONYA 8 x 1 0 01:03 29 x 135 stent ([id number]) 10:09:32 Inflate Proximal POWERFLEX 1 9 00:10 balloon Superficial PRO 7.0 x Femoral, 20 x 135 cm Left balloon ([id number]) 10:15:05 Place stent Proximal SONYA 7 x 1 10 00:10 Common 39 x 135 Iliac, Left stent ([id number]) Device Usage Item Name Manufacture Quantity Catalog Number Hospital Part Current Minim al Lot# / Charge Number Stock Stock Serial# Code ACIST Acist 1 13791 428762 545125 958029 20 Syringe Medical (36149) Systems Inc Bag Microtek 1 2001S 258058 36873 092607 5 Decanter Medical Inc. () Medline Medline 1 [id number] 896672 63749 370336 5 Cath Pack ([id number]) DIAGNOSTIC St Jono 1 714011 323653 342942 155077 30 WIRE .035 260cm J wire (730550) ACIST Hand Acist 1 15547 921934 020449 198311 5 Control Medical (53554) Systems Inc ACIST Acist 1 78734 609569 074434 736918 5 Manifold Medical (40568) Systems Inc Tegaderm 4 3M 1 1626W 324660 942712 904326 5 x 4 (1626W) SHEATH 6FR Terumo 2 JEM386 740016 865440 272271 40 Arnold (SWZ784) INFLATOR Merit 1 EA8229 843718 287201 145694 15 Workle Medical BasixCompak (EN8506) SHEATH 6FR Cardinal 1 310075T 303996 335106 150572 1 Brite Tip Health 35cm (917560M) CHOICE PT [place] 1 [id number] 799915 20190315 521568 5 Extra Scientific Support J 300cm guide wire (0190228S5) SONYA 8 x Cardinal 1 [id number] 416390 931709 897381 5 29 x 135 Health stent ([id number]) GLIDE WIRE Terumo 1 WO6255 101114 272008 161649 5 ANGLE 260cm (UH2706) SHEATH 6FR Terumo 1 RSR01 598536 26406 446834 5 Destination (RSR01) DIAGNOSTIC Cardinal 1 [id number] 177290 242936 850599 5 MPA-2 5Fr Health catheter (323876A) POWERFLEX Cardinal 1 [id number] 081439 274022 332177 5 PRO 7.0 x Health 20 x 135 cm balloon ([id number]) SONYA 7 x Cardinal 1 [id number] 197927 48770 132030 5 39 x 135 Health stent ([id number]) EXOSEAL 6Fr Cardinal 1 EX600 923559 965619 054471 10 (EX600) Health Signature Audit Coker Stage Time Signature Unsigned Intra-Procedure 12/13/2018 Ector Joseph RT(Jonel) 10:29:06 AM Signatures Monitor : Ector Joseph RT Signature : Date : Time : [place] [address] [place] [address]
[~2018-12-13 07:47] MED LIST changes: +AUGMENTIN 875-11 TAB PO; +COMPAZINE25 MG PO
[2018-12-13 08:29] VITALS: BP 169/56; Ht 165.1 cm; Wt 73.2 kg
[2018-12-13 08:44] LABS: BASOPHILS 0.3 % (0-2); EOSINOPHILS 2.7 % (0-7); HEMATOCRIT 35.9 % (36.0-48.0); IMMATURE GRANULOCYTES 0.3 % (0-5); LYMPHOCYTES 25.2 % (15-50); MCH 27.4 pg (26.0-34.0); MCHC 30.6 g/dL (31.0-37.0); MCV 89.5 fL (80.0-100.0); MEAN PLATELET VOLUME 9.4 fL (7.4-10.4); NEUTROPHILS 65.5 % (40-80); RBC 4.01 10x6/uL (4.00-5.40); RDW 14.9 % (11.5-14.5); WBC 7.5 10x3/uL (4.8-10.8)
[2018-12-13 08:53] LABS: ANION GAP 15.3 mmol/L (8-16); CALCIUM 9.3 mg/dL (8.5-10.1); CARBON DIOXIDE 24.4 mmol/L (21.0-32.0); POTASSIUM - SERUM 3.7 mmol/L (3.5-5.1)
[2018-12-13 09:10] LABS: PLATELET COUNT 174 10x3/uL (130-400)
--- NOTE | 2018-12-13 10:42 | NUR ---
RECIEVED TO ROOM VIA STRETCHER FROM DIRECTOR CHECK WITH 6 FR EXOSEAL R/GROIN CDI NO BLEEDING OR HEMATOMA NOTED. DRESSING TO L/GROIN CDI NO BLEEDING NOTED. PATIENT DENIED CHEST PAIN ON ARRIVAL CONNECTED TO MONITOR FOR OBSERVATION WITH HR OF 54 BP 157/54
--- NOTE | 2018-12-13 10:49 | NUR ---
PATIENT RESTING QUIETLY WITH HR 53 BP 150/49. BILATERAL GROINS ARE CDI WITH NO BLEEDING NOTED
--- NOTE | 2018-12-13 11:00 | NUR ---
PATIENT RESTING QUIETLY WITH NO DISTRESS NOTED VSS AND BILATERAL GROINS ARE CDI NO BLEEDING NOTED. PULSES PALPABLE
--- NOTE | 2018-12-13 11:17 | NUR ---
PATIENT CONTINUES TO REST WITH NO DISTRESS BILATERAL GROINS ARE CDI
--- NOTE | 2018-12-13 11:27 | NUR ---
NO CHANGE IN ASSESSMENT PATIENT CONTINUES TO SLEEP WITH VSS
--- NOTE | 2018-12-13 12:00 | NUR ---
PATIENT COMPLAINS OF BACK PAIN WITH REQUEST FOR PAIN MEDICATION DR MONTES NOTIFIED WITH ORDERS RECIEVED. ONE NORCO GIVEN ORAL ORDERED.
--- NOTE | 2018-12-13 12:22 | NUR ---
SANDWICH AND SODA TO BEDSIDE WITH NAUSEA DENIED.
--- NOTE | 2018-12-13 12:53 | NUR ---
BILATERAL GROIN ARE CDI WITH NO BLEEDING NOTED PATIENT DENIED BACK PAIN AND VERBALIZED RELIEF AFTER NORCO GIVEN ORAL.
--- NOTE | 2018-12-13 13:29 | NUR ---
PATIENT DENIED PAIN OR NEEDS 6 FR EXOSEAL R/GROIN IS CDI AND DRESSING TO L/GROIN IS CDI
--- NOTE | 2018-12-13 13:47 | NUR ---
REPOSITIONED TO [facility] UP 30 WITH GROINS CDI NO BLEEDING NOTED. VERBAL AND WRITTEN DISCHARGE GONE OVER WITH PATIENT AND FAMILY.
--- NOTE | 2018-12-13 14:09 | NUR ---
PIV REMOVED WITH DRESSING APPLIED. BILATERAL GROINS ARE CDI WITH CHEST PAIN DENIED. PATIENT UP TO GET DRESSED FOR DISCHARGE HOME
--- NOTE | 2018-12-13 14:19 | NUR ---
PATIENT LEFT VIA WC TO [facility] FOR PRIVATE TRANSPORT HOME BILATERAL GROINS ARE CDI AND CHEST PAIN IS DENIED
== END | disposition home or self-care (01) ==
LOC: D.CATH 07:47
PROVIDERS: ATTEND Internal Medicine Interventional Cardiology
DX: I70.212 Atherosclerosis of native arteries of extremities with intermittent claudication, left leg (principal); I25.10 Atherosclerotic heart disease of native coronary artery without angina pectoris; I10 Essential (primary) hypertension; E78.5 Hyperlipidemia, unspecified; Z01.812 Encounter for preprocedural laboratory examination

== ENCOUNTER → 2019-01-28 10:44 | Outpatient (CLI) | payer MEDICARE ==
[2018-12-13 08:29] VITALS: BMI 26.8
== END | disposition home or self-care (01) ==
LOC: D.US 10:30
PROVIDERS: ATTEND Emergency Medicine
DX: R22.2 Localized swelling, mass and lump, trunk (principal)

== ENCOUNTER 2019-02-10 07:42 | Day surgery (SDC) | payer MEDICARE ==
[~2019-02-10] VITALS: Ht 165.1 cm; Wt 73.9 kg
[2019-02-10 08:20] LABS: ANION GAP 14.3 mmol/L (8-16); CALCIUM 9.7 mg/dL (8.5-10.1); CARBON DIOXIDE 24.4 mmol/L (21.0-32.0); POTASSIUM - SERUM 3.7 mmol/L (3.5-5.1)
[2019-02-10 08:59] LABS: BASOPHILS 0.4 % (0-2); EOSINOPHILS 4.8 % (0-7); HEMATOCRIT 40.9 % (36.0-48.0); HEMOGLOBIN 13.9 g/dL (12-16); IMMATURE GRANULOCYTES 0.3 % (0-5); LYMPHOCYTES 24.2 % (15-50); MCH 29.9 pg (26.0-34.0); MEAN PLATELET VOLUME 9.3 fL (7.4-10.4); MONOCYTES 6.6 % (2-11); NEUTROPHILS 63.7 % (40-80); RBC 4.65 10x6/uL (4.00-5.40); RDW 14.6 % (11.5-14.5); WBC 7.9 10x3/uL (4.8-10.8)
[2019-02-10 09:02] LABS: PLATELET COUNT 252 10x3/uL (130-400)
[2019-02-10 09:25] VITALS: BP 154/61; Ht 165.1 cm; Wt 73.9 kg
[2019-02-10] MEDS ORDERED: PERCOCET 5-3251 TAB PO (10:56)
--- NOTE | 2019-02-18 10:09 | OP ---
PATIENT NAME: BETY ALVAREZ MEDICAL RECORD: [id number] :41 LOCATION:D.OPS ADMISSION DATE: SURGEON: ANNE MARIE SCHAEFER MD DATE OF OPERATION: 02/10/2019 PREOPERATIVE DIAGNOSES: 1. Left buttock lesion (3 cm). 2. Coronary artery disease. 3. Hypertension. 4. Peripheral vascular disease. 5. IVC occlusion. 6. Venous insufficiency with ulceration. 7. Tobacco dependence syndrome. POSTOPERATIVE DIAGNOSES: 1. Left buttock lesion (3 cm). 2. Coronary artery disease. 3. Hypertension. 4. Peripheral vascular disease. 5. IVC occlusion. 6. Venous insufficiency with ulceration. 7. Tobacco dependence syndrome. PROCEDURE: Excision of 2 cm left buttock lesion. SURGEON: Anne Marie Schaefer MD REPORT OF PROCEDURE: The patient was placed in the right lateral decubitus position and the left buttock was prepped and draped in sterile fashion. A transverse incision was made overlying the palpable mass. This was on the superior lateral aspect of the left buttock. Electrocautery was used to dissect through the subcutaneous tissues and we came down to a firm collection of fatty tissue with no evidence of any fluid collection or purulence. The mass was completely excised by using electrocautery to come around the edges. Once the mass was excised, it was sent off for permanent specimen. It appeared to be essentially fatty tissue. The subcutaneous tissues were irrigated out with normal saline, infused with 10 mL of 0.25% Marcaine with epinephrine. The subcutaneous tissues were then reapproximated with interrupted 3-0 Vicryl and the skin was closed with running subcutaneous 5-0 Monocryl. COMPLICATIONS: None. CONDITION: Stable. ANESTHESIA: General endotracheal and local. BLOOD LOSS: Minimal. TRANSINT:[id number] Voice Confirmation ID: [id number] DOCUMENT ID: [id number] OPERATIVE REPORT [id number] BETY ALVAREZ ANNE MARIE SCHAEFER MD at 1009 CC: VINICIO JOHNSON MD [id number] DICTATION DATE: 02/10/19 1100 AGRICULTURAL PILOT: 02/10/19 1304 [facility] 02/10/19 [place] [id number]
== END 2019-02-10 13:15 | disposition home or self-care (01) ==
LOC: D.OPS 07:42 → D.PAN 09:15 → D.OPS 09:15
PROVIDERS: ATTEND Surgery
DX: M79.89 Other specified soft tissue disorders (principal); I25.10 Atherosclerotic heart disease of native coronary artery without angina pectoris; I10 Essential (primary) hypertension; I73.9 Peripheral vascular disease, unspecified; I87.2 Venous insufficiency (chronic) (peripheral); F17.200 Nicotine dependence, unspecified, uncomplicated; Z01.812 Encounter for preprocedural laboratory examination

== ENCOUNTER 2019-02-26 07:07 | Emergency (ER) | payer MEDICARE ==
[~2019-02-26] VITALS: Ht 165.1 cm; Wt 72.3 kg
[~2019-02-26 07:07] MED LIST changes: +PERCOCET 5-3251 TAB PO
[2019-02-26 07:11] VITALS: Ht 165.1 cm; Wt 72.3 kg
[2019-02-26 07:43] LABS: BASOPHILS 0.4 % (0-2); EOSINOPHILS 7.7 % (0-7); HEMATOCRIT 37.1 % (36.0-48.0); HEMOGLOBIN 12.7 g/dL (12-16); IMMATURE GRANULOCYTES 0.1 % (0-5); LYMPHOCYTES 26.7 % (15-50); MCH 29.7 pg (26.0-34.0); MCHC 34.2 g/dL (31.0-37.0); MCV 86.9 fL (80.0-100.0); MEAN PLATELET VOLUME 9.1 fL (7.4-10.4); MONOCYTES 9.2 % (2-11); NEUTROPHILS 55.9 % (40-80); PLATELET COUNT 223 10x3/uL (130-400); RBC 4.27 10x6/uL (4.00-5.40); RDW 15.1 % (11.5-14.5); WBC 6.7 10x3/uL (4.8-10.8)
[2019-02-26 07:46] LABS: APPEARANCE HAZY (CLEAR); BILIRUBIN NEGATIVE (NEGATIVE); COLOR YELLOW (YELLOW); GLUCOSE NEGATIVE (NEGATIVE); KETONE NEGATIVE (NEGATIVE); NITRITE POSITIVE (NEGATIVE); PROTEIN NEGATIVE (NEGATIVE); SPECIFIC GRAVITY 1.015 (1.005-1.020); UROBILINOGEN NORMAL (NORMAL)
[2019-02-26 07:47] LABS: BACTERIA MANY /hpf (NONE SEEN); EPITHELIAL CELLS 0-5 /hpf (0-5); RED CELLS - URINE NONE SEEN /hpf (0-5)
[2019-02-26 07:58] LABS: ALBUMIN 3.6 g/dL (3.4-5.0); ALKALINE PHOSPHATASE 66 U/L (46-116); ALT (SGPT) 16 U/L (10-68); BILIRUBIN - TOTAL 0.34 mg/dL (0.2-1.3); CALC OSMOLALITY 269 mosm/kg (275-300); CALCIUM 8.8 mg/dL (8.5-10.1); CARBON DIOXIDE 23.8 mmol/L (21.0-32.0); CHLORIDE - SERUM 102 mmol/L (98-107); GLUCOSE 94 mg/dL (74-106); PROTEIN - SERUM 7.7 g/dL (6.4-8.2); SODIUM 135 mmol/L (136-145); UREA NITROGEN 13 mg/dL (7-18); eGFR NON AFRICAN AMERICAN 57 mL/min (90-120)
[2019-02-26 08:04] LABS: AMYLASE - SERUM 44 U/L (25-115); LIPASE 155 U/L (73-393); TROPONIN-I < 0.017 ng/mL (0.000-0.060)
[2019-02-26 08:19] VITALS: BP 147/58
== END 2019-02-26 08:20 | disposition home or self-care (01) ==
LOC: D.ER 07:07
PROVIDERS: Emergency Medicine
DX: R10.31 Right lower quadrant pain (principal); R30.0 Dysuria

== ENCOUNTER → 2019-03-09 15:18 | Outpatient (CLI) | payer MEDICARE ==
[2019-02-26 07:11] VITALS: BMI 26.5
== END | disposition home or self-care (01) ==
LOC: D.LABREF 15:18
PROVIDERS: ATTEND Urology
DX: R31.9 Hematuria, unspecified (principal)

== ENCOUNTER → 2019-03-24 08:31 | Outpatient (CLI) | payer MEDICARE ==
[2019-02-26 07:11] VITALS: BMI 26.5
== END | disposition home or self-care (01) ==
LOC: D.CT 08:31
PROVIDERS: ATTEND Urology
DX: Z87.19 Personal history of other diseases of the digestive system (principal)

== ENCOUNTER → 2019-03-28 17:08 | Outpatient (CLI) | payer MEDICARE ==
[2019-02-26 07:11] VITALS: BMI 26.5
== END | disposition home or self-care (01) ==
LOC: D.LABREF 17:08
PROVIDERS: ATTEND Urology
DX: R82.5 Elevated urine levels of drugs, medicaments and biological substances (principal); D72.829 Elevated white blood cell count, unspecified; R31.9 Hematuria, unspecified

== ENCOUNTER → 2019-03-31 17:15 | Outpatient (CLI) | payer MEDICARE ==
[2019-02-26 07:11] VITALS: BMI 26.5
== END | disposition home or self-care (01) ==
LOC: D.LABREF 17:15
PROVIDERS: ATTEND Urology
DX: R31.9 Hematuria, unspecified (principal)

== ENCOUNTER 2019-04-04 14:35 | Outpatient (CLI) | payer MEDICARE ==
[~2019-04-04] VITALS: Ht 165.1 cm; Wt 73.2 kg
[2019-04-04 15:44] VITALS: Ht 165.1 cm; Wt 73.2 kg
[2019-04-04 16:02] LABS: BASOPHILS 0.3 % (0-2); EOSINOPHILS 6.1 % (0-7); HEMATOCRIT 34.6 % (36.0-48.0); HEMOGLOBIN 11.8 g/dL (12-16); IMMATURE GRANULOCYTES 0.2 % (0-5); LYMPHOCYTES 30.6 % (15-50); MCH 29.9 pg (26.0-34.0); MCHC 34.1 g/dL (31.0-37.0); MCV 87.8 fL (80.0-100.0); MEAN PLATELET VOLUME 9.4 fL (7.4-10.4); MONOCYTES 9.5 % (2-11); NEUTROPHILS 53.3 % (40-80); PLATELET COUNT 220 10x3/uL (130-400); RBC 3.94 10x6/uL (4.00-5.40); RDW 15.2 % (11.5-14.5); WBC 6.2 10x3/uL (4.8-10.8)
[2019-04-04 16:53] LABS: CREATININE - SERUM 1.1 mg/dL (0.6-1.3)
== END 2019-04-04 16:35 | disposition home or self-care (01) ==
LOC: D.OPS 14:35
PROVIDERS: ATTEND Urology
DX: N30.00 Acute cystitis without hematuria (principal)

== ENCOUNTER → 2019-04-12 11:31 | Outpatient (CLI) | payer MEDICARE ==
[2019-04-04 15:44] VITALS: BMI 26.8
[2019-04-12 12:33] LABS: HEMATOCRIT 37.5 % (36.0-48.0); HEMOGLOBIN 12.4 g/dL (12-16); MCH 29.7 pg (26.0-34.0); MCHC 33.1 g/dL (31.0-37.0); MCV 89.7 fL (80.0-100.0); MEAN PLATELET VOLUME 9.5 fL (7.4-10.4); PLATELET COUNT 236 10x3/uL (130-400); RBC 4.18 10x6/uL (4.00-5.40); WBC 5.4 10x3/uL (4.8-10.8)
[2019-04-12 12:51] LABS: CREATININE - SERUM 1.1 mg/dL (0.6-1.3)
[2019-04-12 14:35] LABS: EOSINOPHILS 7 % (0-7); LYMPHOCYTES 18 % (15-50); MONOCYTES 14 % (2-11); NEUTROPHILS 60 % (40-80); PLATELET ESTIMATE NORMAL
== END | disposition home or self-care (01) ==
LOC: D.LABREF 11:31
PROVIDERS: ATTEND Urology
DX: N39.0 Urinary tract infection, site not specified (principal); E11.9 Type 2 diabetes mellitus without complications

== ENCOUNTER → 2019-04-19 12:13 | Outpatient (CLI) | payer MEDICARE ==
[2019-04-04 15:44] VITALS: BMI 26.8
[2019-04-19 12:42] LABS: APPEARANCE CLOUDY (CLEAR); BACTERIA MANY /hpf (NONE SEEN); BILIRUBIN NEGATIVE (NEGATIVE); COLOR YELLOW (YELLOW); EPITHELIAL CELLS 0-5 /hpf (0-5); GLUCOSE NEGATIVE (NEGATIVE); KETONE NEGATIVE (NEGATIVE); NITRITE POSITIVE (NEGATIVE); PROTEIN NEGATIVE (NEGATIVE); RED CELLS - URINE 0-5 /hpf (0-5); SPECIFIC GRAVITY 1.015 (1.005-1.020); UROBILINOGEN NORMAL (NORMAL)
[2019-04-19 12:43] LABS: MUCUS <1+ /lpf (NONE SEEN); WHITE CELLS - URINE 25-50 /hpf (0-5)
== END | disposition home or self-care (01) ==
LOC: D.LABREF 12:13
PROVIDERS: ATTEND Urology
DX: N39.0 Urinary tract infection, site not specified (principal)

== ENCOUNTER 2019-04-25 10:21 | Observation (INO) | payer MEDICARE ==
[~2019-04-25] VITALS: Ht 165.1 cm; Wt 73.2 kg
[2019-04-25 11:16] VITALS: BP 127/49
[2019-04-25 11:22] LABS: BASOPHILS 0.3 % (0-2); EOSINOPHILS 4.9 % (0-7); HEMATOCRIT 37.7 % (36.0-48.0); IMMATURE GRANULOCYTES 0.2 % (0-5); LYMPHOCYTES 23.5 % (15-50); MCH 30.2 pg (26.0-34.0); MCHC 34.5 g/dL (31.0-37.0); MCV 87.5 fL (80.0-100.0); MEAN PLATELET VOLUME 9.2 fL (7.4-10.4); MONOCYTES 7.4 % (2-11); NEUTROPHILS 63.7 % (40-80); PLATELET COUNT 194 10x3/uL (130-400); RBC 4.31 10x6/uL (4.00-5.40); RDW 15.2 % (11.5-14.5); WBC 6.4 10x3/uL (4.8-10.8)
[2019-04-25 11:29] LABS: ANION GAP 13.8 mmol/L (8-16); CALCIUM 9.4 mg/dL (8.5-10.1); CARBON DIOXIDE 24.4 mmol/L (21.0-32.0); CREATININE - SERUM 1.1 mg/dL (0.6-1.3); POTASSIUM - SERUM 4.2 mmol/L (3.5-5.1)
--- NOTE | 2019-04-25 11:40 | NUR ---
PT ARRIVED VIA WHEELCHAIR. SHE IS ALERT AND ORIENETED X4. HAS NO COPLAINTS OF PAIN OR DISCOMFRTED AT THSI TIME. UP AD LORIN WITHOUT ASSIST. ALL QUESTIONS ANSWERED. VASCULAR NURSE PLACED A UP ARM PIC LINE THE PT IS GOING TO GO HOME WITH PER DR. MCMAHON. CL IN REACH, SRX2, PT CHANGED INTO GOWN. NON SLIP SOCKS GIVEN.
[2019-04-25 13:17] VITALS: BP 127/49; Ht 165.1 cm; Wt 73.2 kg
[2019-04-25 16:07] VITALS: BP 138/50
--- NOTE | 2019-04-25 19:45 | NUR ---
PATIENT AAO RESTING COMFORTABLY IN BED. RESPIRATIONS ARE EVEN AND UNLABORED. NO S/S OF DISTRESS. NO C/O PAIN. CALL LIGHT WITHIN REACH. WILL CPOC.
[2019-04-25 20:00] VITALS: BP 153/48
[2019-04-26 00:02] VITALS: BP 149/48
[2019-04-26 04:08] VITALS: BP 142/48
[2019-04-26 07:55] VITALS: BP 146/50
[2019-04-26 12:25] VITALS: BP 145/74
--- NOTE | 2019-04-26 14:37 | NUR ---
NO NEEDS OR C/O VOICED. CALL LIGHT IN REACH. WILL CONT. PLAN OF CARE.
[2019-04-26 14:46] VITALS: BP 131/72
[2019-04-26] MEDS ORDERED: INVANZ 1 GM/NS 11 G1 IV (15:55)
--- NOTE | 2019-04-26 16:25 | MORECARE ---
CASE MANAGEMENT DISCHARGE SUMMARY PATIENT: BETY ALVAREZ UNIT: [id number] ADM DATE: 04/25/19 AGE: 73 : 43 SEX: F ROOM/BED: D.2131 AUTHOR: ESAU BRADEN PHYSICIAN: REFERRING PHYSICIAN: SHREYA VELAZQUEZ MD DATE OF SERVICE: 04/26/19 Discharge Plan Patient Name: BETY [facility]VARE[facility] [facility] 1945 Planned Disposition: Home with Home Health Anticipated Discharge Date: 04/26/19 Discharge Date: Expected LOS: 1 Initial Reviewer: [email or web address] Initial Review Date: 04/26/2019 Generated: 04/26/19 5:25 pm External Providers External Provider: [facility] Next Contact Date: 04/26/2019 Service Request Date: Service Type: Resolution: Reviewer: Comments: [facility] Contact Date: 04/26/2019 Service Request Date: Service Type: Resolution: Reviewer: Comments: Patient Name: BETY ALVAREZ Page 58057 at 1625 All edits/amendments must be made on the electronic document DICTATION DATE: 04/26/191624 FOREST PATHOLOGIST: CARLOS 04/26/191624 RPT#: [id number] DC DATE: STATUS: ADM IN [facility] [address] [place] [address] END OF REPORT
--- NOTE | 2019-04-26 16:32 | MORECARE ---
CASE MANAGEMENT DISCHARGE SUMMARY PATIENT: BETY ALVAREZ UNIT: [id number] ADM DATE: 04/25/19 AGE: 73 : 43 SEX: F ROOM/BED: D.0123 AUTHOR: SAMPSON,DOC PHYSICIAN: REFERRING PHYSICIAN: SHREYA VELAZQUEZ MD DATE OF SERVICE: 04/26/19 Discharge Plan Patient Name: BETY ALVAREZ Facility: [facility]:[place] : 1945 Planned Disposition: Home with Home Health Anticipated Discharge Date: 04/26/19 Discharge Date: Expected LOS: 1 Initial Reviewer: [email or web address] Initial Review Date: 04/26/2019 Generated: 04/26/19 5:32 pm Comments DCP- Discharge Planning Updated by [email or web address]: Andrea Falcon on 04/26/19 3:[address] Patient Name: BETY ALVAREZ Admission Status: Elective Accout number: [id number] Admission Date: 04-25-2019 : 1945 Admission Diagnosis:URINARY TRACT INFECTION, SITE NOT SPECIFIED Attending: MIKE VELAZQUEZ Current LOS: 1 Anticipated DC Date: 04-26-2019 Planned Disposition: Home with Home Health Primary Insurance: MEDICARE A & B PLANNED EXTERNAL PROVIDER: [facility] Discharge Planning Comments: CM SPOKE TO DR. VELAZQUEZ WHO PROVIDED HOME HEALTH AND INFUSION ORDERS FOR PT TO DISCHARGE HOME TODAY. CM MET WITH PT IN ROOM TO DISCUSS DISCHARGE PLANNING AND NEEDS. PT REPORTS LIVING AT HOME WITH HER ADULT DAUGHTER WHO ASSIST WITH MEDICATION MANAGEMENT. PT HAS NO MEDICAL EQUIPMENT AND NO OUTSIDE SERVICES ASSISTING IN THE HOME. CM DISCUSSED AVAILABILITY OF HOME HEALTH, REHAB SERVICES AND MEDICAL EQUIPMENT. PT HAS HOME HEALTH WITH [facility] AND HAS HAD INFUSION OF [facility] IN THE PAST, PT'S DAUGHTER ASSISTS WITH IV MANAGEMENT AND WILL DO SO FOR THIS TIME. PT WANTS TO GO HOME TO, REPORTS HER DAUGHTER WILL PICK HER UP FOR DISCHARGE HOME. CM CALLED [facility], , SPOKE TO DAVID WHO INFORMED CM THEY WILL ADMIT IN THE MORNING FOR FIRST INFUSION AT HOME. REFERRAL PROVIDED, PT PLACED ON SCHEDULE FOR TOMORROW. CM FAXED REFERRAL AND DISCHARGE INFORMATION TO [facility] AT [phone]. CM CALLED [facility] [phone], SPOKE TO SOPHIA AND PROVIDED REFERRAL INFORMATION. CM FAXED REFERRAL TO [facility] AT [phone]. [facility] TO PROCESS REFERRAL, CHECK INSURANCE AND ARRANGE HOME DELIVERY OF MEDICATIONS WITH PT AT HOME. DIGITIZER NURSE NOTIFIED. Tariff Clerk: Andrea Falcon RIPIA - Discharge Planning Initial Assessment Updated by [email or web address]: Andrea Falcon on 04/26/19 4:26 pm * Is the patient Alert and Oriented? Yes * How many steps to enter\exit or inside your home? * PCP DR. JOHNSON * Pharmacy [address] * Preadmission Environment Home with Family * ADLs Partial Dependent * Partial ADLs (Assistance needed) Medication Management * Equipment None * Other Equipment NO MEDICAL EQUIPMENT PROVIDER PREFERENCE * List name and contact numbers for known caregivers / representatives who currently or will assist patient after discharge: JANENE KOEHLER, R, * Verbal permission to speak to the caregivers and representatives has been obtained from the patient. N/A * Community resources currently utilized Home Health * Please name any agencies selected above. [facility] * Additional services required to return to the preadmission environment? Yes * Can the patient safely return to the preadmission environment? Yes * Has this patient been hospitalized within the prior 30 days at any hospital? No Last DP export: 04/26/19 3:25 p Patient Name: BETY ALVAREZ Page 66094 at 1632 All edits/amendments must be made on the electronic document DICTATION DATE: 04/26/191631 PARTS PROFESSIONAL: CARLOS 04/26/19 163 RPT#: [id number] DC DATE: STATUS: ADM IN [facility] [address] [place] [address] END OF REPORT
--- NOTE | 2019-04-26 17:16 | NUR ---
DC PLANS GIVEN. UNDERSTANDING VOICED. ESCORTED TO CAR BY W/C.
== END 2019-04-26 17:17 | disposition home or self-care (01) ==
LOC: UNDOADMIN 10:21 → OBSVTIME 10:21 → D.M2 10:21
PROVIDERS: ADMIT Urology; ATTEND Urology
PROC: 05HB33Z Insertion of Infusion Device into Right Basilic Vein, Percutaneous Approach (ICD-10-PCS; principal; 2019-04-25)
PROC: B54MZZA Ultrasonography of Right Upper Extremity Veins, Guidance (ICD-10-PCS; 2019-04-25)
DX: N39.0 Urinary tract infection, site not specified (principal); B96.20 Unspecified Escherichia coli [E. coli] as the cause of diseases classified elsewhere; Z86.73 Personal history of transient ischemic attack (TIA), and cerebral infarction without residual deficits; I10 Essential (primary) hypertension; K21.9 Gastro-esophageal reflux disease without esophagitis; Z72.0 Tobacco use

== ENCOUNTER 2019-05-07 16:06 | Emergency (ER) | payer MEDICARE ==
[~2019-05-07] VITALS: Ht 165.1 cm; Wt 73.2 kg
[~2019-05-07 16:06] MED LIST changes: +INVANZ 1 GM/NS 11 G1 IV
[2019-05-07 16:10] VITALS: Ht 165.1 cm; Wt 73.2 kg
[2019-05-07 17:14] VITALS: BP 137/67
== END 2019-05-07 17:17 | disposition home or self-care (01) ==
LOC: D.ER 16:06
DX: T82.898A Other specified complication of vascular prosthetic devices, implants and grafts, initial encounter (principal)

== ENCOUNTER → 2019-05-13 12:51 | Outpatient (CLI) | payer MEDICARE ==
[2019-05-07 16:10] VITALS: BMI 26.8
== END | disposition home or self-care (01) ==
LOC: D.OPS 05-09 14:30
PROVIDERS: ATTEND Urology
DX: N39.0 Urinary tract infection, site not specified (principal); Z01.812 Encounter for preprocedural laboratory examination

== ENCOUNTER → 2019-05-17 17:04 | Outpatient (CLI) | payer MEDICARE ==
[2019-05-07 16:10] VITALS: BMI 26.8
[2019-05-17 17:55] LABS: APPEARANCE HAZY (CLEAR); COLOR YELLOW (YELLOW); SPECIFIC GRAVITY 1.015 (1.005-1.020)
[2019-05-17 17:56] LABS: BACTERIA MANY /hpf (NONE SEEN); BILIRUBIN NEGATIVE (NEGATIVE); EPITHELIAL CELLS 0-5 /hpf (0-5); GLUCOSE NEGATIVE (NEGATIVE); KETONE NEGATIVE (NEGATIVE); NITRITE POSITIVE (NEGATIVE); PROTEIN NEGATIVE (NEGATIVE); RED CELLS - URINE 0-5 /hpf (0-5); UROBILINOGEN NORMAL (NORMAL)
== END | disposition home or self-care (01) ==
LOC: D.LABREF 17:04
PROVIDERS: ATTEND Urology
DX: N39.0 Urinary tract infection, site not specified (principal)

== ENCOUNTER → 2019-06-24 15:25 | Outpatient (CLI) | payer MEDICARE ==
[2019-05-07 16:10] VITALS: BMI 26.8
[~2019-06-24 15:25] MED LIST changes: +ATIVAN1 MG PO; +CIPRO500 MG PO; +FLUTICASONE PRO16 GM; +HYDROCODON-ACE1 EAC7 PO; +OXYBUTYNIN CHLOR5 MG PO
== END | disposition home or self-care (01) ==
LOC: D.LABREF 15:25
PROVIDERS: ATTEND Urology
DX: Z00.00 Encounter for general adult medical examination without abnormal findings (principal)

== ENCOUNTER 2019-07-07 07:04 | Day surgery (SDC) | payer MEDICARE ==
[2019-07-06 13:51] LABS: HEMATOCRIT 40.7 % (36.0-48.0); HEMOGLOBIN 13.5 g/dL (12-16); MCH 31.2 pg (26.0-34.0); MCHC 33.2 g/dL (31.0-37.0); MEAN PLATELET VOLUME 9.2 fL (7.4-10.4); RBC 4.33 10x6/uL (4.00-5.40); RDW 14.6 % (11.5-14.5); WBC 8.7 10x3/uL (4.8-10.8)
[~2019-07-07] VITALS: Ht 165.1 cm; Wt 73.9 kg
[~2019-07-07 07:04] MED LIST changes: -ATIVAN1 MG PO; -CIPRO500 MG PO; -FLUTICASONE PRO16 GM; -HYDROCODON-ACE1 EAC7 PO; -OXYBUTYNIN CHLOR5 MG PO
[2019-07-07] MEDS ORDERED: FLUTICASONE PRO16 GM (07:10)
[2019-07-07] MEDS ORDERED: OXYBUTYNIN CHLOR5 MG PO (07:12)
[2019-07-07 07:23] VITALS: BP 162/61; Ht 165.1 cm; Wt 73.9 kg
--- NOTE | 2019-07-07 10:03 | OP ---
PATIENT NAME: BETY ALVAREZ MEDICAL RECORD: [id number] [facility]: SURGEON: SHREYA VELAZQUEZ MD DATE OF OPERATION: 07/07/2019 SURGEON: Shreya Velazquez MD ANESTHESIA: TIVA by Gavin Bryan CRNA DIAGNOSES: Pneumaturia, colovesical fistula, persistent urinary tract infection with Escherichia coli extended-spectrum beta-lactamase positive. PROCEDURE: Cystoscopy, vaginoscopy, cystogram, bilateral retrograde pyelogram, fistulogram. FINDINGS: On cystoscopy, single ureteral orifices bilaterally. No bladder tumors were seen. 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 On bilateral retrograde pyelograms is left hydroureteronephrosis down to the ureterovesical junction. The right ureter is irregular in its course due to the presence of a right iliofemoral graft. Fistulogram show communication of the bladder to bowel. Vaginoscopy shows previous hysterectomy with no fistula. ESTIMATED BLOOD LOSS: None. CLINICAL HISTORY: This is a 73-year-old female with a history of ongoing E. coli, ESBL positive UTIs. She has been getting IV antibiotic treatments or IM antibiotic treatments as appropriate. I tried to find a possible source of the E. coli, ESBL positive. She denies complaints of pneumaturia. I had a CT scan of the abdomen and pelvis on 03/24/2019, which shows a left lower quadrant colostomy. Apparently, during the attempt to reverse the colostomy, she had a bladder perforation. The original reason for the bowel resection was obstruction of the colon due to a large benign polyp. The kidneys were apparently normal on the CT scan and there is a previous hysterectomy. A fistula was not seen on the CT of the abdomen and pelvis. A cystogram had been done in 2018 and it did not show a fistula. Today, we are performing cystoscopy to check for the presence of an enterovesical fistula. She is allergic to multiple antibiotics including ERYTHROMYCIN, VANCOMYCIN, SULFA, ROCEPHIN, TRAMADOL AND MORPHINE. She is given ertapenem IV rehabilitation team lead to the OR due to the sensitivity of the E. coli ESBL to this organism. DESCRIPTION OF PROCEDURE: The patient was given IV sedation. She was placed in lithotomy position and prepped and draped. A 21-Armenian cystoscope with 30-degree lens was used for visualization. The fistula tract could easily be seen in the dome of the bladder. I then called for radiology. We tried to perform a cystogram by injecting 60 mL of diluted contrast into the bladder. This did not show the fistula tract. Even when I placed the cystoscope back and increased the volume in the bladder using irrigation fluid, this still did not show a fistula tract. I then placed an open-ended ureteral catheter into the right ureteral orifice and diluted contrast was injected for the retrograde pyelogram. The ureter courses irregular, but there is no hydronephrosis on the right side. The same procedure was repeated on the left side and quite significant hydroureteronephrosis was seen on the left side down to the UV junction. Finally, I introduced the ureteral catheter into the fistula tract itself. By injection of contrast, I could see a small tract going into what looks like bowel. However, it is hard to identify, which segment of bowel this OPERATIVE REPORT [id number] BETY ALVAREZ is going into. During the cystoscopy, the patient's colostomy bag did not fill up with fluid. I did not check the rectum to see if there was any fluid in the rectum. We then placed the scope into the vagina. The patient has had a hysterectomy in the past. There are some irregularities noted at the vaginal cuff. I placed the ureteral catheter up against the irregularities and we injected contrast, but none of these turned out to be a fistula. Dr. Rios was present while I was doing these tests and he is aware of her history. I will see her next week to make plans on how to discover the source of the colovesical fistula and how to best correct this. TRANSINT:[id number] Voice Confirmation ID: [id number] DOCUMENT ID: [id number] SHREYA VELAZQUEZ MD at 1003 CC: [id number] DICTATION DATE: 07/07/19942 SHIRT SORTER: 07/07/19957 [facility] [address] [place] [address]
--- NOTE | 2019-07-07 10:28 | NUR ---
1010-DISCHARGE CRITERIA MET. ABLE TO URINATE WITHOUT COMPLICATIONS.VSS.NO DISTRESS. DENIES PAIN. REMOVED IV WITH CATH INTACT,DISPOSED INTO SHARPS,COVERED SITE WITH BANDAID. REVIEWED POST OPERATIVE INSTRUCTIONS.VERBALIZED UNDERSTANDING. ESCORTED OUT VIA W/C WITH DAUGHTER AWAITING TO DRIVE HOME
== END 2019-07-07 10:10 | disposition home or self-care (01) ==
LOC: D.OPS 07:04 → D.PAN 09:10 → D.OPS 09:10 → D.PAN 10:15 → D.OPS 10:15
PROVIDERS: Anesthesiology; ATTEND Urology
DX: N32.1 Vesicointestinal fistula (principal); N39.0 Urinary tract infection, site not specified

== ENCOUNTER → 2019-07-22 08:04 | Outpatient (CLI) | payer MEDICARE ==
[2019-07-07 07:23] VITALS: BMI 27.1
[~2019-07-22 08:04] MED LIST changes: +ATIVAN1 MG PO; +CIPRO500 MG PO; +FLUTICASONE PRO16 GM; +HYDROCODON-ACE1 EAC7 PO; +OXYBUTYNIN CHLOR5 MG PO
== END | disposition home or self-care (01) ==
LOC: D.CT 08:04
PROVIDERS: ATTEND Urology
DX: N32.1 Vesicointestinal fistula (principal)

== ENCOUNTER 2019-08-07 08:14 | Emergency (ER) | payer MEDICARE ==
[~2019-08-07] VITALS: Ht 165.1 cm; Wt 70.9 kg
[~2019-08-07 08:14] MED LIST changes: -ATIVAN1 MG PO; -CIPRO500 MG PO; -HYDROCODON-ACE1 EAC7 PO
[2019-08-07 08:17] VITALS: Ht 165.1 cm; Wt 70.9 kg
[2019-08-07] MEDS ORDERED: ATIVAN1 MG PO (08:43)
[2019-08-07 08:46] LABS: BASOPHILS 0.5 % (0-2); EOSINOPHILS 11.4 % (0-7); HEMATOCRIT 43.5 % (36.0-48.0); HEMOGLOBIN 14.8 g/dL (12-16); IMMATURE GRANULOCYTES 0.2 % (0-5); LYMPHOCYTES 23.2 % (15-50); MEAN PLATELET VOLUME 9.4 fL (7.4-10.4); MONOCYTES 8.1 % (2-11); NEUTROPHILS 56.6 % (40-80); PLATELET COUNT 282 10x3/uL (130-400); RBC 4.63 10x6/uL (4.00-5.40); RDW 14.1 % (11.5-14.5); WBC 8.5 10x3/uL (4.8-10.8)
[2019-08-07 08:59] LABS: ANION GAP 15.8 mmol/L (8-16); CALCIUM 10.1 mg/dL (8.5-10.1); CARBON DIOXIDE 24.2 mmol/L (21.0-32.0)
[2019-08-07 09:04] LABS: ALBUMIN 4.1 g/dL (3.4-5.0); BILIRUBIN - TOTAL 0.48 mg/dL (0.2-1.3); PROTEIN - SERUM 8.7 g/dL (6.4-8.2)
[2019-08-07 09:14] LABS: APPEARANCE CLOUDY (CLEAR); BACTERIA MANY /hpf (NEGATIVE); BILIRUBIN NEGATIVE (NEGATIVE); COLOR YELLOW (YELLOW); EPITHELIAL CELLS 0-5 /hpf (0-5); GLUCOSE NEGATIVE (NEGATIVE); KETONE NEGATIVE (NEGATIVE); NITRITE POSITIVE (NEGATIVE); PROTEIN 1+ mg/dL (NEGATIVE); UROBILINOGEN NORMAL (NORMAL)
[2019-08-07] MEDS ORDERED: CIPRO500 MG PO ×2 (10:45→11:01)
[2019-08-07] MEDS ORDERED: HYDROCODON-ACE1 EAC7 PO (10:46)
[2019-08-07 10:59] VITALS: BP 169/77
== END 2019-08-07 10:59 | disposition home or self-care (01) ==
LOC: D.ER 08:14
PROVIDERS: Emergency Medicine
DX: N30.00 Acute cystitis without hematuria (principal); I10 Essential (primary) hypertension; Z72.0 Tobacco use; Z86.73 Personal history of transient ischemic attack (TIA), and cerebral infarction without residual deficits; I25.10 Atherosclerotic heart disease of native coronary artery without angina pectoris

== ENCOUNTER 2019-09-03 08:39 | Emergency (ER) | payer MEDICARE ==
[~2019-09-03] VITALS: Ht 165.1 cm; Wt 70.9 kg
[~2019-09-03 08:39] MED LIST changes: +ATIVAN1 MG PO; +CIPRO500 MG PO; +HYDROCODON-ACE1 EAC7 PO
[2019-09-03 08:43] VITALS: Ht 165.1 cm; Wt 70.9 kg
[2019-09-03 09:01] LABS: APPEARANCE SL CLDY (CLEAR); BILIRUBIN NEGATIVE (NEGATIVE); COLOR YELLOW (YELLOW); GLUCOSE NEGATIVE (NEGATIVE); KETONE NEGATIVE (NEGATIVE); NITRITE POSITIVE (NEGATIVE); PROTEIN TRACE mg/dL (NEGATIVE); UROBILINOGEN NORMAL (NORMAL)
[2019-09-03 09:03] LABS: BACTERIA MANY /hpf (NEGATIVE); EPITHELIAL CELLS 0-5 /hpf (0-5); RED CELLS - URINE 0-5 /hpf (0-5)
[2019-09-03 09:58] LABS: BASOPHILS 0.3 % (0-2); EOSINOPHILS 4.5 % (0-7); HEMATOCRIT 38.8 % (36.0-48.0); IMMATURE GRANULOCYTES 0.3 % (0-5); LYMPHOCYTES 26.3 % (15-50); MCH 30.9 pg (26.0-34.0); MCHC 33.5 g/dL (31.0-37.0); MCV 92.2 fL (80.0-100.0); MEAN PLATELET VOLUME 9.1 fL (7.4-10.4); MONOCYTES 6.5 % (2-11); NEUTROPHILS 62.1 % (40-80); PLATELET COUNT 278 10x3/uL (130-400); RBC 4.21 10x6/uL (4.00-5.40); RDW 13.5 % (11.5-14.5); WBC 7.2 10x3/uL (4.8-10.8)
[2019-09-03 10:06] LABS: ANION GAP 12.9 mmol/L (8-16); CALCIUM 9.4 mg/dL (8.5-10.1); CARBON DIOXIDE 27.9 mmol/L (21.0-32.0); POTASSIUM - SERUM 3.8 mmol/L (3.5-5.1)
[2019-09-03 10:12] LABS: ALBUMIN 3.7 g/dL (3.4-5.0); BILIRUBIN - TOTAL 0.35 mg/dL (0.2-1.3); PROTEIN - SERUM 7.6 g/dL (6.4-8.2)
[2019-09-03] MEDS ORDERED: LEVOFLOXACIN500 MG PO (11:17)
[2019-09-03] MEDS ORDERED: TORADOL10 MG PO (11:20)
[2019-09-03 11:47] VITALS: BP 154/72
== END 2019-09-03 11:49 | disposition home or self-care (01) ==
LOC: D.ER 08:39
PROVIDERS: Family Medicine
DX: N39.0 Urinary tract infection, site not specified (principal); I10 Essential (primary) hypertension; Z72.0 Tobacco use; I25.10 Atherosclerotic heart disease of native coronary artery without angina pectoris; Z86.73 Personal history of transient ischemic attack (TIA), and cerebral infarction without residual deficits

== ENCOUNTER 2019-09-21 12:07 | Emergency (ER) | payer MEDICARE ==
[~2019-09-21] VITALS: Ht 165.1 cm; Wt 71.8 kg
[~2019-09-21 12:07] MED LIST changes: +LEVOFLOXACIN500 MG PO; +TORADOL10 MG PO
[2019-09-21 12:31] VITALS: Ht 165.1 cm; Wt 71.8 kg
[2019-09-21 15:08] VITALS: BP 172/63
== END 2019-09-21 16:45 | disposition left against medical advice (07) ==
LOC: D.ER 12:07
DX: M25.562 Pain in left knee (principal); Z86.73 Personal history of transient ischemic attack (TIA), and cerebral infarction without residual deficits; I10 Essential (primary) hypertension; I25.10 Atherosclerotic heart disease of native coronary artery without angina pectoris; Z72.0 Tobacco use

== ENCOUNTER 2019-09-25 11:56 | Emergency (ER) | payer MEDICARE ==
[2019-09-21 12:31] VITALS: Ht 165.1 cm; Wt 75.0 kg
[~2019-09-25] VITALS: Ht 165.1 cm; Wt 75.0 kg
[2019-09-25] MEDS ORDERED: EC-NAPROSYN500 MG PO (12:13)
[2019-09-25 12:16] VITALS: BP 174/80
== END 2019-09-25 12:17 | disposition home or self-care (01) ==
LOC: D.ER 11:56
DX: M17.0 Bilateral primary osteoarthritis of knee (principal); I10 Essential (primary) hypertension; I25.10 Atherosclerotic heart disease of native coronary artery without angina pectoris; Z86.73 Personal history of transient ischemic attack (TIA), and cerebral infarction without residual deficits; Z72.0 Tobacco use

== ENCOUNTER 2019-10-05 13:46 | Emergency (ER) | payer MEDICARE ==
[~2019-10-05] VITALS: Ht 165.1 cm; Wt 76.4 kg
[~2019-10-05 13:46] MED LIST changes: +EC-NAPROSYN500 MG PO
[2019-10-05 13:47] VITALS: BP 157/67; Ht 165.1 cm; Wt 76.4 kg
== END 2019-10-05 16:09 | disposition home or self-care (01) ==
LOC: D.ER 13:46
DX: F41.9 Anxiety disorder, unspecified (principal); Z86.73 Personal history of transient ischemic attack (TIA), and cerebral infarction without residual deficits; I10 Essential (primary) hypertension; Z72.0 Tobacco use

== ENCOUNTER 2020-02-01 08:42 | Emergency (ER) | payer MEDICARE ==
[~2020-02-01] VITALS: Ht 165.1 cm; Wt 76.4 kg
[2020-02-01 08:51] VITALS: Ht 165.1 cm; Wt 76.4 kg
[2020-02-01 09:34] LABS: BASOPHILS 0.4 % (0-2); EOSINOPHILS 5.3 % (0-7); HEMOGLOBIN 12.7 g/dL (12-16); IMMATURE GRANULOCYTES 0.4 % (0-5); LYMPHOCYTES 34.2 % (15-50); MCH 28.9 pg (26.0-34.0); MCHC 31.8 g/dL (31.0-37.0); MCV 90.9 fL (80.0-100.0); MEAN PLATELET VOLUME 9.1 fL (7.4-10.4); MONOCYTES 6.6 % (2-11); NEUTROPHILS 53.1 % (40-80); PLATELET COUNT 272 10x3/uL (130-400); RDW 15.3 % (11.5-14.5); WBC 7.6 10x3/uL (4.8-10.8)
[2020-02-01 09:37] LABS: ANION GAP 9.8 mmol/L (8-16); CALCIUM 9.4 mg/dL (8.5-10.1); CARBON DIOXIDE 27.4 mmol/L (21.0-32.0); POTASSIUM - SERUM 3.2 mmol/L (3.5-5.1)
[2020-02-01 09:43] LABS: ALBUMIN 3.9 g/dL (3.4-5.0); BILIRUBIN - TOTAL 0.44 mg/dL (0.2-1.3); PROTEIN - SERUM 8.4 g/dL (6.4-8.2)
[2020-02-01 10:05] LABS: BACTERIA MANY /hpf (NEGATIVE); BILIRUBIN NEGATIVE (NEGATIVE); EPITHELIAL CELLS 0-5 /hpf (0-5); GLUCOSE NEGATIVE (NEGATIVE); KETONE NEGATIVE (NEGATIVE); NITRITE POSITIVE (NEGATIVE); RED CELLS - URINE OCC /hpf (0-5); SPECIFIC GRAVITY 1.015 (1.005-1.020); UROBILINOGEN NORMAL (NORMAL); WHITE CELLS - URINE >50 /hpf (NEGATIVE)
[2020-02-01] MEDS ORDERED: MACROBID100 MG PO (10:29)
[2020-02-01 10:49] VITALS: BP 153/64
== END 2020-02-01 10:49 | disposition home or self-care (01) ==
LOC: D.ER 08:42
PROVIDERS: Family Medicine
DX: N39.0 Urinary tract infection, site not specified (principal); M54.5 Low back pain; I10 Essential (primary) hypertension; Z86.73 Personal history of transient ischemic attack (TIA), and cerebral infarction without residual deficits; Z72.0 Tobacco use

== ENCOUNTER 2020-02-17 14:24 | Emergency (ER) | payer MEDICARE ==
[~2020-02-17] VITALS: Ht 165.1 cm; Wt 76.4 kg
[2020-02-17 14:29] VITALS: BP 196/88; Ht 165.1 cm; Wt 76.4 kg
[2020-02-17] MEDS ORDERED: CYCLOBENZAPRINE10 MG PO (15:36)
== END 2020-02-17 15:56 | disposition home or self-care (01) ==
LOC: D.ER 14:24
DX: M79.10 Myalgia, unspecified site (principal); M25.552 Pain in left hip; I10 Essential (primary) hypertension; Z86.73 Personal history of transient ischemic attack (TIA), and cerebral infarction without residual deficits; Z72.0 Tobacco use

== ENCOUNTER 2020-03-18 13:47 | Emergency (ER) | payer MEDICARE ==
[2020-03-18 14:10] VITALS: Ht 165.1 cm
[2020-03-18 15:48] VITALS: BP 132/66
== END 2020-03-18 15:49 | disposition home or self-care (01) ==
LOC: D.ER 13:47
DX: S61.411A Laceration without foreign body of right hand, initial encounter (principal); Z86.73 Personal history of transient ischemic attack (TIA), and cerebral infarction without residual deficits; I10 Essential (primary) hypertension; W19.XXXA Unspecified fall, initial encounter; Y93.9 Activity, unspecified; Y92.9 Unspecified place or not applicable

== ENCOUNTER 2020-05-11 13:17 | Emergency (ER) | payer MEDICARE ==
[~2020-05-11] VITALS: Ht 165.1 cm; Wt 76.4 kg
[2020-05-11 13:24] VITALS: Ht 165.1 cm; Wt 76.4 kg
[2020-05-11 14:53] LABS: BILIRUBIN NEGATIVE (NEGATIVE); KETONE NEGATIVE (NEGATIVE); NITRITE POSITIVE (NEGATIVE); UROBILINOGEN NORMAL (NORMAL)
[2020-05-11 14:54] LABS: BACTERIA MANY /hpf (NONE SEEN); EPITHELIAL CELLS 0-5 /hpf (0-5); RED CELLS - URINE OCC /hpf (0-5)
[2020-05-11] MEDS ORDERED: MACROBID100 MG PO (15:07)
[2020-05-11 15:32] VITALS: BP 132/78
== END 2020-05-11 15:33 | disposition home or self-care (01) ==
LOC: D.ER 13:17
PROVIDERS: Emergency Medicine
DX: N39.0 Urinary tract infection, site not specified (principal); I10 Essential (primary) hypertension; Z95.5 Presence of coronary angioplasty implant and graft; F17.200 Nicotine dependence, unspecified, uncomplicated

== ENCOUNTER 2020-05-14 13:00 | Outpatient (CLI) | payer MEDICARE ==
[2020-05-11 13:24] VITALS: BMI 28.0
== END 2020-05-14 14:15 | disposition home or self-care (01) ==
LOC: D.MAMMO 13:00
PROVIDERS: ATTEND Emergency Medicine
DX: Z12.31 Encounter for screening mammogram for malignant neoplasm of breast (principal)

== ENCOUNTER 2020-06-19 09:45 | Emergency (ER) | payer MEDICARE ==
[~2020-06-19] VITALS: Ht 165.1 cm; Wt 73.6 kg
[2020-06-19 09:55] VITALS: Ht 165.1 cm; Wt 73.6 kg
[2020-06-19 10:44] LABS: BASOPHILS 0.3 % (0-2); EOSINOPHILS 5.9 % (0-7); HEMATOCRIT 39.2 % (36.0-48.0); HEMOGLOBIN 12.8 g/dL (12-16); IMMATURE GRANULOCYTES 0.3 % (0-5); LYMPHOCYTES 29.8 % (15-50); MCHC 32.7 g/dL (31.0-37.0); MEAN PLATELET VOLUME 9.3 fL (7.4-10.4); MONOCYTES 5.4 % (2-11); NEUTROPHILS 58.3 % (40-80); PLATELET COUNT 244 10x3/uL (130-400); RBC 4.26 10x6/uL (4.00-5.40); RDW 15.1 % (11.5-14.5); WBC 6.3 10x3/uL (4.8-10.8)
[2020-06-19 10:55] LABS: ANION GAP 11.9 mmol/L (8-16); CALCIUM 9.3 mg/dL (8.5-10.1); CARBON DIOXIDE 27.2 mmol/L (21.0-32.0); POTASSIUM - SERUM 4.1 mmol/L (3.5-5.1)
[2020-06-19 11:01] LABS: ALBUMIN 3.9 g/dL (3.4-5.0); PROTEIN - SERUM 7.7 g/dL (6.4-8.2)
[2020-06-19 11:14] LABS: BILIRUBIN - TOTAL 0.32 mg/dL (0.2-1.3)
[2020-06-19 11:20] LABS: BILIRUBIN NEGATIVE (NEGATIVE); KETONE NEGATIVE (NEGATIVE); NITRITE POSITIVE (NEGATIVE); UROBILINOGEN NORMAL mg/dL (< 2)
[2020-06-19 11:21] LABS: BACTERIA MANY HPF (NONE SEEN)
[2020-06-19] MEDS ORDERED: MACROBID100 MG PO (12:23)
[2020-06-19 13:55] VITALS: BP 160/57
== END 2020-06-19 13:55 | disposition home or self-care (01) ==
LOC: D.ER 09:45
PROVIDERS: Emergency Medicine
DX: S30.1XXA Contusion of abdominal wall, initial encounter (principal); N39.0 Urinary tract infection, site not specified; Z86.73 Personal history of transient ischemic attack (TIA), and cerebral infarction without residual deficits; I10 Essential (primary) hypertension; Z72.0 Tobacco use; W19.XXXA Unspecified fall, initial encounter; Y93.9 Activity, unspecified; Y92.9 Unspecified place or not applicable; M54.9 Dorsalgia, unspecified

== ENCOUNTER 2020-06-25 15:42 | Emergency (ER) | payer MEDICARE ==
[~2020-06-25] VITALS: Ht 165.1 cm; Wt 73.6 kg
[2020-06-25 15:50] VITALS: BP 156/87; Ht 165.1 cm; Wt 73.6 kg
== END 2020-06-25 17:42 | disposition home or self-care (01) ==
LOC: D.ER 15:42
DX: S51.811A Laceration without foreign body of right forearm, initial encounter (principal); X58.XXXA Exposure to other specified factors, initial encounter; I10 Essential (primary) hypertension; I25.10 Atherosclerotic heart disease of native coronary artery without angina pectoris; Z95.5 Presence of coronary angioplasty implant and graft

== ENCOUNTER 2020-06-28 20:33 | Emergency (ER) | payer MEDICARE ==
[~2020-06-28] VITALS: Ht 165.1 cm; Wt 73.6 kg
[2020-06-28 20:35] VITALS: Ht 165.1 cm; Wt 73.6 kg
[2020-06-28 21:09] LABS: HEMATOCRIT 37.7 % (36.0-48.0); HEMOGLOBIN 12.6 g/dL (12-16); MCH 30.6 pg (26.0-34.0); MCHC 33.4 g/dL (31.0-37.0); MCV 91.5 fL (80.0-100.0); MEAN PLATELET VOLUME 9.2 fL (7.4-10.4); PLATELET COUNT 204 10x3/uL (130-400); RBC 4.12 10x6/uL (4.00-5.40); RDW 15.2 % (11.5-14.5); WBC 7.8 10x3/uL (4.8-10.8)
[2020-06-28 21:21] LABS: APTT 37.1 SECONDS (22.8-39.4); INR 1.03 (0.85-1.17); PROTIME 13.4 SECONDS (11.6-15.0)
[2020-06-28 21:28] LABS: EOSINOPHILS 5 % (0-7); LYMPHOCYTES 29 % (15-50); MONOCYTES 5 % (2-11); NEUTROPHILS 60 % (40-80); PLATELET ESTIMATE NORMAL
[2020-06-28 21:32] LABS: BILIRUBIN NEGATIVE (NEGATIVE); KETONE NEGATIVE (NEGATIVE); NITRITE POSITIVE (NEGATIVE); UROBILINOGEN NORMAL mg/dL (< 2)
[2020-06-28 21:39] LABS: CALC OSMOLALITY 280 mosm/kg (275-300); CALCIUM 9.3 mg/dL (8.5-10.1); CARBON DIOXIDE 23.6 mmol/L (21.0-32.0); CHLORIDE - SERUM 103 mmol/L (98-107); CREATININE - SERUM 1.1 mg/dL (0.6-1.3); GLUCOSE 121 mg/dL (74-106); POTASSIUM - SERUM 3.8 mmol/L (3.5-5.1); SODIUM 141 mmol/L (136-145); UREA NITROGEN 11 mg/dL (7-18); eGFR NON AFRICAN AMERICAN 51 mL/min (90-120)
[2020-06-28 21:50] LABS: BACTERIA MANY HPF (NONE SEEN); SQUAMOUS EPITHELIAL 0-5 HPF (0-4)
[2020-06-28 21:53] LABS: ALBUMIN 3.8 g/dL (3.4-5.0); ALKALINE PHOSPHATASE 59 U/L (30-120); ALT (SGPT) 14 U/L (10-68); AMYLASE - SERUM 38 U/L (25-115); BILIRUBIN - TOTAL 0.28 mg/dL (0.2-1.3); CKMB 3.5 U/L (0.0-3.6); CREATINE KINASE 103 UL (21-215); LIPASE 109 U/L (73-393); MAGNESIUM - SERUM 2.4 mg/dL (1.8-2.4); PROTEIN - SERUM 7.7 g/dL (6.4-8.2)
[2020-06-28 21:54] LABS: TROPONIN-I < 0.017 ng/mL (0.000-0.060)
[2020-06-28] MEDS ORDERED: LEVOFLOXACIN500 MG PO (23:23)
[2020-06-29 00:35] VITALS: BP 152/58
== END 2020-06-29 00:40 | disposition home or self-care (01) ==
LOC: D.ER 20:33
PROVIDERS: Family Medicine
DX: N39.0 Urinary tract infection, site not specified (principal); R10.11 Right upper quadrant pain; I10 Essential (primary) hypertension; Z86.73 Personal history of transient ischemic attack (TIA), and cerebral infarction without residual deficits; Z72.0 Tobacco use

== ENCOUNTER → 2020-11-08 | Emergency (ER) | payer MEDICARE ==
[~2020-11-08] VITALS: Ht 165.1 cm; Wt 71.8 kg
[~2020-11-08] MED LIST changes: +DOXYCYCLINE HY100 M2 PO; +ZANAFLEX4 MG PO
[2020-11-08 08:14] VITALS: Ht 165.1 cm; Wt 71.8 kg
[2020-11-08 09:22] LABS: HEMATOCRIT 41.2 % (36.0-48.0); HEMOGLOBIN 13.6 g/dL (12-16); LYMPHOCYTES 20.4 % (15-50); MCH 29.8 pg (26.0-34.0); MCV 90.2 fL (80.0-100.0); MEAN PLATELET VOLUME 9.5 fL (7.4-10.4); NEUTROPHILS 69.5 % (40-80); RBC 4.57 10x6/uL (4.00-5.40); RDW 14.1 % (11.5-14.5); WBC 10.2 10x3/uL (4.8-10.8)
[2020-11-08 09:27] LABS: ANION GAP 14.3 mmol/L (8-16); CALCIUM 9.7 mg/dL (8.5-10.1); CARBON DIOXIDE 26.5 mmol/L (21.0-32.0); POTASSIUM - SERUM 3.8 mmol/L (3.5-5.1)
[2020-11-08 09:28] LABS: PLATELET COUNT 325 10x3/uL (130-400)
[2020-11-08 09:33] LABS: BILIRUBIN - TOTAL 0.48 mg/dL (0.2-1.3); MAGNESIUM - SERUM 2.3 mg/dL (1.8-2.4); PROTEIN - SERUM 8.1 g/dL (6.4-8.2)
[2020-11-08 11:17] VITALS: BP 101/61
[2020-11-08 11:21] LABS: BACTERIA MANY HPF (NONE SEEN); BILIRUBIN NEGATIVE (NEGATIVE); KETONE NEGATIVE (NEGATIVE); NITRITE POSITIVE (NEGATIVE); UROBILINOGEN NORMAL mg/dL (< 2); WHITE CELLS - URINE 25-50 HPF (0-4)
== END ==
LOC: D.ER 08:08
PROVIDERS: Emergency Medicine
DX: N39.0 Urinary tract infection, site not specified (principal); I10 Essential (primary) hypertension

== ENCOUNTER 2020-12-07 08:33 | Emergency (ER) | payer MEDICARE ==
[~2020-12-07] VITALS: Ht 165.1 cm; Wt 76.8 kg
[2020-12-07 08:38] VITALS: Ht 165.1 cm; Wt 76.8 kg
[2020-12-07] MEDS ORDERED: HYDROCODON-ACE1 EA10 PO (08:42)
[2020-12-07 09:06] LABS: BASOPHILS 0.3 % (0-2); EOSINOPHILS 2.9 % (0-7); HEMATOCRIT 40.6 % (36.0-48.0); HEMOGLOBIN 13.6 g/dL (12-16); IMMATURE GRANULOCYTES 0.1 % (0-5); LYMPHOCYTE ABS# 1.61 10x3/uL (1.18-3.74); LYMPHOCYTES 18.4 % (15-50); MCH 30.2 pg (26.0-34.0); MCHC 33.5 g/dL (31.0-37.0); MONOCYTES 7.4 % (2-11); NEUTROPHIL ABS# 6.22 10x3/uL (1.56-6.13); NEUTROPHILS 70.9 % (40-80); PLATELET COUNT 267 10x3/uL (130-400); RBC 4.51 10x6/uL (4.00-5.40); RDW 14.3 % (11.5-14.5); WBC 8.8 10x3/uL (4.8-10.8)
[2020-12-07 09:13] LABS: ANION GAP 16.8 mmol/L (8-16); CALCIUM 9.7 mg/dL (8.5-10.1); CREATININE - SERUM 1.2 mg/dL (0.6-1.3); POTASSIUM - SERUM 3.8 mmol/L (3.5-5.1)
[2020-12-07 09:19] LABS: ALBUMIN 4.1 g/dL (3.4-5.0); BILIRUBIN - TOTAL 0.35 mg/dL (0.2-1.3); PROTEIN - SERUM 8.5 g/dL (6.4-8.2)
[2020-12-07 09:58] LABS: BILIRUBIN NEGATIVE (NEGATIVE); KETONE NEGATIVE (NEGATIVE); NITRITE POSITIVE (NEGATIVE); SQUAMOUS EPITHELIAL OCC HPF (0-4); UROBILINOGEN NORMAL mg/dL (< 2)
[2020-12-07 09:59] LABS: BACTERIA MANY HPF (NONE SEEN)
[2020-12-07 10:31] VITALS: BP 138/51
[2020-12-07] MEDS ORDERED: PERCOCET 5-3251 TAB PO (10:42)
[2020-12-07] MEDS ORDERED: MACROBID100 MG PO (10:42)
[2020-12-07] MEDS ORDERED: MACRODANTIN50 MG PO (10:42)
== END 2020-12-07 11:03 | disposition home or self-care (01) ==
LOC: D.ER 08:33
PROVIDERS: Emergency Medicine
DX: N39.0 Urinary tract infection, site not specified (principal); R10.9 Unspecified abdominal pain; R10.31 Right lower quadrant pain; I10 Essential (primary) hypertension; Z72.0 Tobacco use; R53.1 Weakness

== ENCOUNTER 2021-02-10 10:24 | Emergency (ER) | payer MEDICARE ==
[~2021-02-10] VITALS: Ht 165.1 cm; Wt 71.4 kg
[~2021-02-10 10:24] MED LIST changes: +HYDROCODON-ACE1 EA10 PO; +MACRODANTIN50 MG PO
[2021-02-10 10:39] VITALS: BP 157/55; Ht 165.1 cm; Wt 71.4 kg
== END 2021-02-10 12:49 | disposition home or self-care (01) ==
LOC: D.ER 10:24
DX: S80.02XA Contusion of left knee, initial encounter (principal); I10 Essential (primary) hypertension; Z72.0 Tobacco use; W01.0XXA Fall on same level from slipping, tripping and stumbling without subsequent striking against object, initial encounter; Y93.9 Activity, unspecified; Y92.9 Unspecified place or not applicable

== ENCOUNTER 2021-02-17 15:20 | Emergency (ER) | payer MEDICARE ==
[~2021-02-17] VITALS: Ht 165.1 cm; Wt 71.4 kg
[2021-02-17 15:25] VITALS: BP 167/51; Ht 165.1 cm; Wt 71.4 kg
[2021-02-17] MEDS ORDERED: OXYBUTYNIN CHLOR5 MG PO (15:29)
[2021-02-17] MEDS ORDERED: CEPHALEXIN500 M1 PO (15:55)
[2021-02-17] MEDS ORDERED: CLEOCIN HCL300 MG PO (15:55)
[2021-02-17] MEDS ORDERED: HYDROCODON-ACE1 EA10 PO (15:55)
== END 2021-02-17 16:10 | disposition home or self-care (01) ==
LOC: D.ER 15:20
DX: K94.01 Colostomy hemorrhage (principal); I10 Essential (primary) hypertension; Z72.0 Tobacco use

== ENCOUNTER 2021-02-17 18:12 | Emergency (ER) | payer MEDICARE ==
[~2021-02-17] VITALS: Ht 165.1 cm; Wt 71.4 kg
[~2021-02-17 18:12] MED LIST changes: +CEPHALEXIN500 M1 PO
[2021-02-17 18:21] VITALS: BP 182/58; Ht 165.1 cm; Wt 71.4 kg
== END 2021-02-17 18:52 | disposition home or self-care (01) ==
LOC: D.ER 18:12
DX: K94.01 Colostomy hemorrhage (principal); I10 Essential (primary) hypertension; Z72.0 Tobacco use